=== PATIENT | female | born 1955 | race Caucasian/White ===

== ENCOUNTER 2023-04-15 12:58 | Outpatient (OUT) | payer MEDICARE, BC, SELFPAY ==
--- NOTE | 2023-04-15 13:00 | MM_ITS ---
Patient Name: CAR ALBERTS MR#: [id number] : 1955 Exam Date: 04/15/2023 Ordering Doctor: DR AMARIS BIRMINGHAM M.D. RADIOLOGY REPORT PROCEDURE: MM TOMOSYNTHESIS SCREENING BI COMPARISON: MG MAMM SCREEN 3D JALIL CAD, 03/07/2022. MG MAMM SCREEN 3D JALIL CAD, 01/18/2021. MG MAMM SCREEN JALIL W CAD, 12/28/2019. MG MAMM JALIL SCRN W CAD DIG, 07/02/2012. INDICATIONS: screening Calculator Name NCI Breast Cancer Risk Assessment Tool 5 Year Breast Cancer Risk 1.20% Lifetime Breast Cancer Risk 3.70% Personal Breast Cancer No Personal Ovarian Cancer No Treatments None Family Cancers Aunt-maternal with breast cancer at age 48; Aunt-maternal with breast cancer at age 69; Aunt-maternal with breast cancer at age 71; Aunt-maternal with breast cancer at age 68; Cousin-maternal with ovarian cancer at age 58. LOCATION: [facility] BREAST COMPOSITION: Scattered areas fibroglandular density. FINDINGS: DIAGNOSTIC CATEGORY 2--BENIGN FINDING: RIGHT BREAST: No significant suspicious finding. Scattered benign-appearing calcifications are present. No significant change has occurred. LEFT BREAST: No significant suspicious finding. Stable, chronic benign appearing lymph node lower-outer quadrant, mid breast. No significant change has occurred. RECOMMENDATIONS: ROUTINE MAMMOGRAM AND CLINICAL EVALUATION IN 12 MONTHS. PLEASE NOTE: A NORMAL MAMMOGRAM DOES NOT EXCLUDE THE POSSIBILITY OF BREAST CANCER. A CLINICALLY SUSPICIOUS PALPABLE LUMP SHOULD BE BIOPSIED. Dictated by: Addy Nj M.D. on 04/16/2023 at 07:57 Approved by: Addy Nj M.D. on 04/16/2023 at 07:59
== END 2023-04-15 12:59 | disposition home or self-care (01) ==
LOC: MAMMO 12:58
PROVIDERS: PCP Internal Medicine; Visit Provider Internal Medicine
DX: Z12.31 Encounter for screening mammogram for malignant neoplasm of breast (principal); Z80.3 Family history of malignant neoplasm of breast; Z80.41 Family history of malignant neoplasm of ovary
CPT/HCPCS: 77063; 77067

== ENCOUNTER 2023-04-20 11:39 | Outpatient (OUT) | payer MEDICARE, BC, SELFPAY ==
--- OUTSIDE RECORDS SUMMARY | 2023-04-20 11:55 | XMS_ITS | CCD ---
Author Name Unknown Address [facility] [address] [place] [address] Organization [facility] Care Team Providers Care Aerotriangulation Specialist Name Role Phone MANOJ MEDINA Attending Unavailable VINNIE, DR GLEZ Primary Care Unavailable LAKSHMIPATHY ., NARENDRANATH Consulting Mary vailable LAKSHMIPATHY ., NARENDRANATH Admitting Mary vailable LAKSHMIPATHY ., NARRAMIREZATH Attending Mary vailable VINNIE, DR GLEZ Primary Care Unavailable LAKSHMIPATHY ., NARRAMIREZATH Consulting Mary vailable LAKSHMIPATHY ., NARENDRANATH Admitting Mary vailable LAKSHMIPATHY ., MACK Attending Mary vailable THI, DR KIERAN Fong Consulting Unavailable VINNIE, DR GLEZ Primary Care Unavailable LAKSHMIPATHY ., NARENDRANATH Admitting Mary vailable LAKSHMIPATHY ., JULIAATH Attending Mary vailable LAKSHMIPATHY ., MACK Consulting Mary vailable VINNIE, DR GLEZ Admitting Unavailable AVILA, DR GLEZ Attending Unavailable AVILA, DR GELZ Consulting Unavailable AVILA, DR GLEZ Primary Care Unavailable ZICHRISTOPHERER, DR ADDY Gale Consulting Unavailable AVILA, DR GLEZ Admitting Unavailable AVILA, DR GLEZ Attending Unavailable AVILA, DR GLEZ Consulting Unavailable AVILA, DR GLEZ Primary Care Unavailable WEST, DR KIERAN Fong Consulting Unavailable VINNIE, DR GLEZ Primary Care Unavailable LAKSHMIPATHY ., NARENDRANATH Admitting Mary vailable LAKSHMIPATHY ., NARENDRANATH Attending Mary vailable LAKSHMIPATHY ., JULIAATH Consulting Mary vailable VINNIE, DR GLEZ Primary Care Unavailable LAKSHMIPATHY ., NARENDRANATH Admitting Mary vailable LAKSHMIPATHY ., NARENDRANATH Attending Mary vailable LAKSHMIPATHY ., NARENDRANATH Consulting Mary vailable LAKSHMIPATHY ., NARENDRANATH Admitting DR AMARIS Veras Primary Care Unavailable MACK SANDERS Attending AMARIS Veras Attending Unavailable Allergies Allergy Classification Reported Allergen(s) Allergy Type Date of Onset Reaction(s) Facility (2 sources) Codeine; Translations: [CODEINE] Drug Allergy 07-26-19 14 [facility] Repository (1 source) Meperidine; Translations: [MEPERIDINE] Drug Allergy 11-15-19 22 [facility] Rep[facility] (1 source) Sulfonamides (Antibiotic); Translations: [SULFA (SULFONAMIDE ANTIBIOTICS)] Propensity to adverse reactions to drug (disorder) 11-15-19 [facility] Repository (1 source) Acetaminophen / HYDROcodone Drug Allergy 07-26-19 14 [facility] Repository (1 source) Dextroamphetamine Drug Allergy 07-26-19 14 [facility] Repository (1 source) Meperidine Drug Allergy 07-26-19 14 [facility] Repository (1 source) Omeprazole Drug Allergy 07-26-19 14 [facility] Repository (1 source) Pravastatin Drug Allergy 07-26-19 14 [facility] Repository (1 source) raNITIdine Drug Allergy 07-26-19 14 [facility] Repository (1 source) rofecoxib Drug Allergy 07-26-19 14 [facility] Repository (1 source) Sucralfate Drug Allergy 07-26-19 14 [facility] Repository (1 source) Sulfonamides (Antibiotic) Drug allergy (disorder) 07-26-19 14 [facility] Repository (1 source) Trimethoprim Drug Allergy 06-08-19 15 [facility] Repository Problems Active Problems Problem Classification Problem Date Documented Date Episodic/Chronic Menopausal disorders (1 source) Other primary ovarian failure; Translations: [OTHER PRIMARY OVARIAN FAILURE] Onset: 03-14-2022 Chronic Other connective tissue disease (4 sources) Pain in left lower leg; Translations: [PAIN IN LEFT LOWER LEG] Onset: 05-15-2022 Episodic Other nervous system disorders (1 source) Other chronic pain; Translations: [OTHER CHRONIC PAIN] Onset: 05-18-2022 Chronic Other nervous system disorders (2 sources) Numbness; Translations: [Numbness] Onset: 11-14-2021 Episodic Other non-traumatic joint disorders (1 source) Pain in left hip; Translations: [PAIN IN LEFT HIP] Onset: 05-01-2022 Episodic Spondylosis; intervertebral disc disorders; other back problems (2 sources) Other intervertebral disc displacement, lumbar region; Translations: [Other intervertebral disc degeneration, lumbar region] Onset: 04-23-2022 Chronic Spondylosis; intervertebral disc disorders; other back problems (4 sources) Radiculopathy, lumbar region; Translations: [RADICULOPATHY LUMBAR REGION] Onset: 06-17-2022 Episodic Unclassified (2 sources) LOW BACK PAIN, UNSPECIFIED; Translations: [LOW BACK PAIN, UNSPECIFIED] Onset: 04-23-2022 Past or Other Problems Problem Classification Problem Date Documented Da te Episodic/Chronic Biliary tract disease (1 source) Calculus of gallbladder without cholecystitis without obstruction; Translations: [CALCU GB W/O CHOLECYST W/O OBST] Onset: 08-22-2021 Episodic Nausea and vomiting (4 sources) Nausea; Translations: [NAUSEA] Onset: 08-19-2021 Episodic Other bone disease and musculoskeletal deformities (1 source) Other specified disorders of bone density and structure, unspecified site; Translations: [OTH D/O BONE DEN STRUCT UNS SITE] Onset: 03-14-2022 Episodic Other screening for suspected conditions (not mental disorders or infectious disease) (1 source) Encounter for screening mammogram for malignant neoplasm of breast; Translations: [ENC SCR MAMMO MALIG NEOPLASM BREAST] Onset: 03-14-2022 Episodic Residual codes; unclassified (1 source) Family history of malignant neoplasm of breast; Translations: [FAMILY HX MALIG NEOPLASM OF BREAST] Onset: 03-14-2022 Episodic Residual codes; unclassified (1 source) Family history of malignant neoplasm of ovary; Translations: [FAM HX MALIGNANT NEOPLASM OVARY] Onset: 03-14-2022 Episodic Unclassified (1 source) LOW BACK PAIN, UNSPECIFIED; Translations: [LOW BACK PAIN, UNSPECIFIED] Onset: 04-17-2022 Results Test Name Value Interpretation Reference Range Facil ity MRI LSPINE WO CONon 04-22-19 MRI LSPINE WO CON EXAMINATION: MRI LSPINE WO CON HISTORY: Lumbar radiculopathy COMPARISON: No relevant comparison available. TECHNIQUE: A variety of imaging planes and parameters were utilized for visualization of suspected pathology. FINDINGS: For the purposes of numbering, sagittal T2 image # 7 extends from the T10 vertebral body superiorly to the S3 level inferiorly. PARASPINAL AREA: Normal with no visible mass. BONES: Normal alignment with no acute fracture or spondylolisthesis. Heterogeneous appearance of the marrow likely age-related change. Moderate diffuse degenerative spondylosis and facet osteoarthropathy. CORD/CAUDA EQUINA: Normal caliber, contour, and signal intensity. DISC LEVELS: 12-L1: Disc space narrowing and disc desiccation. Mild posterior disc bulge. No central or foraminal stenosis L1-L2: Moderate degenerative disc disease is present without visible neural impingement. L2-L3: Disc collapse with endplate sclerosis. Moderate anterior posterior disc/osteophyte complex and facet osteoarthropathy. No central or foraminal stenosis L3-L4: Moderate disc space narrowing and disc desiccation. Mild diffuse disc/osteophyte complex and facet osteoarthropathy. No central canal or right foraminal stenosis. Mild narrowing of the left neural foramen, sagittal image 4 L4-L5: Moderate disc space narrowing and disc desiccation. Moderate diffuse disc/osteophyte complex with left foraminal disc herniation of the protrusion type extending up to 5 mm. No central canal or right foraminal stenosis. Moderate narrowing of the left neural foramen, sagittal image 4 L5-S1: Moderate disc space narrowing and disc desiccation. Mild to moderate diffuse disc/osteophyte complex and facet osteophytes arthropathy. Mild bilateral foraminal stenosis IMPRESSION: Moderate diffuse degenerative changes most significant along the left L4-L5 neural foramen where a moderate sized disc herniation is observed resulting in moderate foraminal stenosis. This is congruent with the patient's symptoms Electronically authenticated by: KIERAN NESS Date: 2022-04-22 16:55 Normal [facility] MG MAMM SCREEN 3D JALIL CADon 03-07-2022 MG MAMM SCREEN 3D JALIL CAD Patient: KRISTINA VARGAS Exam Date: 03/07/2022 : 1955 Gender:F Ordering : DR AMARIS AVILA M.D. Admission #: [id number] Family : Order #: [id number] CLICK HERE TO VIEW EXAM RADIOLOGY REPORT PROCEDURE: MAMMOGRAM SCREENING 3D BILATERAL CAD COMPARISON: MG MAMM SCREEN 3D JALIL CAD, 01/18/2021. MG MAMM SCREEN JALIL W CAD, 12/28/2019. MG MAMM SCREEN JALIL W CAD, 10/28/2018. DIGITIZED_MAMMO, 04/14/2008. INDICATIONS: Screening mammography Calculator Name NCI Breast Cancer Risk Assessment Tool 5 Year Breast Cancer Risk 1.20% Lifetime Breast Cancer Risk 3.90% Personal Breast Cancer No Personal Ovarian Cancer No Treatments None Family Cancers Aunt-maternal with breast cancer at age 48; Aunt-maternal with breast cancer at age 69; Aunt-maternal with breast cancer at age 71; Aunt-maternal with breast cancer at age 68; Cousin-maternal with ovarian cancer at age 58. LOCATION: [facility] BREAST COMPOSITION: Scattered areas fibroglandular density. FINDINGS: DIAGNOSTIC CATEGORY 2--BENIGN FINDING: RIGHT BREAST: No significant suspicious finding. No significant change has occurred. LEFT BREAST: No significant suspicious finding. Stable benign-appearing lymph node within lower-outer quadrant. No significant change has occurred. RECOMMENDATIONS: ROUTINE MAMMOGRAM AND CLINICAL EVALUATION IN 12 MONTHS. PLEASE NOTE: A NORMAL MAMMOGRAM DOES NOT EXCLUDE THE POSSIBILITY OF BREAST CANCER. A CLINICALLY SUSPICIOUS PALPABLE LUMP SHOULD BE BIOPSIED. Dictated by: Addy Nj M.D. on 03/07/2022 at 13:40 Approved by: Addy Nj M.D. on 03/07/2022 at 13:43 Normal [facility] XR DEXA BONE DENSITYon 03-07 XR DEXA BONE DENSITY EXAMINATION: XR DEXA BONE DENSITY, 03/07/2022 11:06 AM EST HISTORY: Primary ovarian failure COMPARISON: DEXA bone densitometry 12/28/2019 TECHNIQUE: Dual-energy X-ray absorptiometry (DEXA) bone density study performed for the axial skeleton. FINDINGS: SPINE ANALYSIS: Average bone mineral density is 1.354 g/cm2. T-score (standard deviation relative to young adult mean): 1.5 . +4.9% change since prior study. HIP ANALYSIS: Lowest bone mineral density is within the left femoral neck, 0.798 g/cm2. T-score (standard deviation relative to young adult mean): -1.7 . +2.2% change since prior study. IMPRESSION: [employer] Organization Classification: Osteopenia - Moderate Fracture Risk Electronically authenticated by: ADDY NJ Date: 2022-03-07 16:12 Normal [facility] XR LSPINE MIN 4 VIEWSon 02-23 XR LSPINE MIN 4 VIEWS EXAMINATION: XR LSPINE MIN 4 VIEWS HISTORY: Lumbar radiculopathy ; low back pain radiating into left leg for 8 weeks COMPARISON: No relevant comparison available. FINDINGS: BONES: No fracture, spondylolisthesis, bone lesion. Moderate degenerative facet arthropathy L3-L4 through L5-S1. DISC SPACES: Marked narrowing L2-L3, L5-S1. Moderate narrowing at remaining levels. PARASPINOUS: Filter within the IVC. OTHER: Negative. IMPRESSION: 1. Marked degenerative changes of lumbar spine. 2. No appreciable acute abnormality. Electronically authenticated by: ADDY NJ Date: 2022-03-07 16:26 Normal [facility] Orders Onlyon 11-29-2021 Orders Only [id number] aRchel Vargas n 1955 F Date Provider Department Center 11/29/2021 [id number] SIM MP ORTHO MPORTHO No family history on file Normal [facility] Office Visiton 11-14-2021 Follow-up visit [id number] Rachel Vargas n 1955 F Date Provider Department Center 11/14/2021 373-MANOJ MEDINA MP ORTHO MPORTHO No family history on file Level of Service:[id number] [place] OFFICE/OUTPATIENT [facility] 30-44 MINUTES Reason for Visit and Comments: Numbness [75] - Lump - noticed 2 weeks ago with thumb tingling Normal [facility] US SINGLE QUAD RT UPPERon US SINGLE QUAD RT UPPER EXAMINATION: US SINGLE QUAD RT UPPER HISTORY: Nausea COMPARISON: No relevant comparison available. FINDINGS: The liver measures 14 cm in length. Normal in size, contour and echotexture. No focal mass. The gallbladder is normal in appearance. The gallbladder wall measures 1.5 mm. Negative sonographic Gilmore sign. No cholelithiasis or pericholecystic fluid. The common bile duct measures 5.2 mm, normal. The pancreas is normal in appearance The right kidney is normal in appearance. IMPRESSION: Normal exam Electronically authenticated by: KIERAN NESS Date: 2021-08-19 16:13 Normal [facility] Encounters Encounter Date Encounter Type Care Provider Facility Start: 01-21-2023 End: 01-21-2023 ambulatory AMARIS AVILA Not Available Start: 06-17-2022 End: 06-18-[address] AMARIS AVILA Facility:[facility] Start: 05-27-2022 End: 05-27-[address] AMARIS AVILA Facility:[facility] Start: 05-15-2022 End: 05-16-2022 ambulatory JULIAJOLENE LAVELLMIPATHMelisa . Facility:[facility] Start: 04-24-2022 End: 05-24-[address] AMARIS AVILA Facility:[facility] Start: 04-22-2022 End: 04-23-[address] KIERAN NESS Facility:[facility] Start: 04-17-2022 End: 04-18-2022 ambulatory NARENDRANATH LAKSHMIPATHY . Facility:[facility] Start: 03-07-2022 End: 03-08-[address] AMARIS AVILA Facility:[facility] Start: 11-14-2021 End: 11-14-2021 ambulatory [facility] Start: 08-19-2021 End: 08-20-[address] AMARIS AVILA Facility:[facility] Payers Date Payer Category Payer Medicare [id number] 1961 Unknown [id number] 1955 Unknown [id number] 2.16.84 [id number] 1955 Unknown [id number] 2.16.84 [id number] 1955 Unknown [id number] 2.16.84 [id number] 1955 Unknown [id number] 2.16.84 [id number] 1955 Unknown [id number] 2.16.84 [id number] 1955 Unknown [id number] 2.16.84 [id number] 1955 Unknown [id number] 2.16.84 [id number] 1955 Unknown [id number] 2.16.84 [id number] 1955 Unknown [id number] [id number] Consultation note 05-15-2022 Note Date & Type Note Facility 05-15-2022 Note CONSULTATION CONSULTATION DATE: 05/15/2022 HISTORY: She returns complaining of pain in her left lower extremity. It is rated at 5-7/10, sharp/shooting in nature, increased with activity such as standing, walking and performing transitioning maneuvers. She feels most comfortable in the semi-recumbent position. Denied any change in bowel and bladder habits or new sensorimotor changes in her lower extremities. She reports existing numbness and tingling of the left lower extremity with weakness, but nothing is progressive. EXAMINATION: Her examination is notable for patient having no clinical myelopathy involving her lower extremities on today's visit. Patient did have mild weakness of her left EHL, depressed left Achilles reflex. Straight leg raise was equivocally positive at approximately 90 degrees. She did have significant pain with lumbar axial loading maneuvers, with point tenderness at the L4-5 interspace, and associated myofascial spasm of the lumbar paravertebral muscles. 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 RECOMMENDATIONS: I have recommended proceeding with an epidural injection under fluoroscopic guidance. I have asked her to continue with the current regimen of medication which includes Neurontin 300 mg b.i.d., tramadol 50 mg daily p.r.n., which she reports is effective, and improving her qualify of life, level of functioning and sleep pattern, and to continue with Flexeril 10 mg daily p.r.n. Her SHANNON was 20 on today's visit. [facility] Consultation note 04-17-2022 Note Date & Type Note Facility 04-17-2022 Note PAIN MANAGEMENT CONS ULTATION CONSULTATION DATE: 04/17/2022 TO: Dr. Avila CHIEF COMPLAINT: Severe left lower back pain, left leg pain. HISTORY OF PRESENT ILLNESS: For list of past medical/surgical history, questionnaire is available upon request. She is a 67-year-old and reports having pain since November of 2021. It occurred spontaneously . She rates the pain as being 5-7/10, sharp in character, was increased with activities such as standing, walking and performing transitioning maneuvers. She feels most comfortable in the semi-recumbent position. Denies any change in bowel and bladder habits or new sensorimotor changes of the lower extremities. EXAM: Notable for patient having hypoesthesia along the left L5 dermatome, mild weakness of the left EHL, superior was equivocally positive at approximately 45 degrees. She had no signs consistent with myelopathy involving the lower extremities. She is unable to tolerate non- steroidal agents secondary to the fact that patient is on Coumadin for a pulmonary embolism. She has undergone activity modification, a home exercise program. She has been on a Medrol Dosepak, and she reports she has had only marginal relief with the use of the same. IMPRESSION: Patient with chronic pain extending to the L5 vertebral process. Her x-rays did reveal multilevel degenerative disc disease, as well as spondylitic changes with possible foraminal narrowing at the L5-S1 level. RECOMMENDATIONS: I have recommended she undergo a lumbosacral MRI with contrast, formal physical therapy as opposed to a home exercise program. I have placed her on Neurontin 300 mg b.i.d. and we will see her back in the office after she undergoes the imaging studies. possible lumbar epidural steroid injection under fluoroscopic guidance. [facility] Progress note 11-14-2021 Note Date & Type Note Facility 11-14-2021 Note Orthopaedic Surgery Subjective 11/14/21 Kristina Vargas is a 66 y.o. year old RHD female presents to clinic today for evaluation of left volar wrist mass and left thumb tingling. Patient was last seen in clinic approximately 5 years ago for a trigger finger on her right side which resolved with CSI. She reports over the past 3 to 4 weeks she has noted development of a small mass over the volar radial aspect of her wrist. She reports the mass does not appear to continue to be increasing in size. Denies any tenderness to the mass. Additionally, she reports numbness and tingling of her left thumb. She also reports of occasional numbness and tingling of her index and long fingers. Patient reports she has not tried any bracing of her left wrist. Otherwise, denies any numbness or tingling of her small finger. Patient History No past surgical history on file. No past medical history on file. Objective General: Body mass index is 28.77 kg/m???. No acute distress, comfortable Respiratory: Unlabored breathing with normal rate, no cough Cardiovascular: Warm well perfused extremities Psych: Appropriate mood behavior Focused exam of the left hand: Skin clean, dry, intact. There is a small approximately 4 x 4 millimeter cystic mass over the volar radial aspect of the wrist, consistent with a firm ganglion cyst. Patient has positive Tinel and positive Phalen and carpal compression test. Negative Tinel at the elbow, negative elbow flexion compression test and negative shoulder abduction/internal rotation test. Otherwise neurovascular intact distally, with slightly diminished sensation in median nerve distribution. Assessment/Plan Kristina Vargas is a 66 y.o. year old RHD female with left carpal tunnel syndrome and left volar wrist ganglion cyst -Discussed clinical findings with the patient today -We discussed that the patient's wrist mass appears to be ganglion cyst and is benign and does not require any intervention unless it is symptomatic. Additionally, we discussed that the patient's carpal tunnel syndrome does not appear to be highly symptomatic and we would not suggest aggressive treatment at this time -Cock up wrist brace provided to the patient to be worn at night -Return to clinic in approximately 6 weeks if symptoms are not improved, or if they worsen Neville Carpenter MD Orthopaedic Surgery, PGY-5 By using the attestations below, the signing clinician agrees that I have read and verify that the documentation has been personally reviewed by me and ensure that the documentation accurately reflects the encounter. GC: I personally saw this patient on the day of the encounter, performed the gómez portion(s) of the service and participated in the management and confirm the resident's documentation. Please note there may be an additional personal documentation from me. [facility] Summary Purpose Family History No Family History Records FoundNo Family History Records FoundNo Family History Records Found Advance Directives No Advanced Directives Records FoundNo Advanced Directives Records FoundNo Advanced Directives Records Found Additional Source Comments INFORMATION SOURCE (unrecogn ized section and content) DATE CREATED AUTHOR 01/02/2022 [facility] DATE CREATED AUTHOR AUTHOR'S ORGANIZ ATION 06/21/2022 [facility] DATE CREATED AUTHOR AUTHOR'S GARLAND ATION 01/23/2023 [facility] FOR RECORDS PERTAINING TO PATIENTS WHO ARE OR HAVE BEEN ENROLLED IN A CHEMICAL DEPENDENCY/SUBSTANCEABUSE PROGRAM, SOME INFORMATION MAY BE OMITTED. This clinical summary was aggregated from multiple sources. Caution should be exercised in using it in the provision of clinical care. This summary normalizes information from multiple sources, and as a consequence, information in this document may materially change the coding, format and clinical context of patient data. In addition, data may be omitted in some cases. CLINICAL DECISIONS SHOULD BE BASED ON THE PRIMARY CLINICAL RECORDS. [facility] [employer] provides no warranty or guarantee of the accuracy or completeness of information in this document.
--- NOTE | 2023-04-20 13:19 | P.CN_ITS ---
Consult Note: HPI Data of Consult Patient: known to practice within the last 3 years Consult date: 04/20/23 Requesting Physician: Leila Black MD Primary Care Provider: AMARIS B[place]MINGHAM Consult Narrative Reason for consult: Low back, left leg pain Narrative: 68yof who presents for assessment. Worsening low back and left leg pain. Similar to pain she had prior to DONNA in April, which provided significant relief of >50% for >3 months. Had a fall several months ago, which exacerbated pain. Imaging reviewed, which shows multilevel stenosis and degenerative changes, worst at L4- 5 and L5-S1. Continues in >6 weeks of provider directed home exercise program, with minimal benefit. Uses OTC pain meds as needed. Denies adverse med side effects. cc:: CC: Leila Black MD Review of Systems ROS Status of ROS 10 or more systems reviewed and unremark able except as noted in history and below Exam Narrative Exam Narrative: Psych-alert and oriented x 3. Attentive and appropriate, constitutionally normal, displays normal mood and affect per situation. There are no obvious deficits in memory, reasoning, or intellect.? Skin-no obvious rashes, bruising, erythema noted to the patient's area of pain.? Extremities- extremities are warm with minimal edema and palpable pulses. Lumbar-tenderness to palpation noted in the lumbar spine and paraspinal musculature. Pain is elicited with flexion, extension, and lateral rotation of the lumbar spine. Range of motion is diminished with these motions. Facet loading maneuvers are positive.? Strength-noted to be unremarkable with the exception of decreased strength rated at 4 out of 5 in left quadriceps femoris, anterior tibialis. Sensory-no notable sensory deficits in the bilateral lower extremities to touch or pinprick in all dermatomal distributions with the exception to decreased sensation to the left L4, 5 dermatomal distribution Sacroiliitis - tenderness to left PSIS. Positive thigh thrust on left. Positive Donald's on left. Coordination remains intact.? Gait remains non-antalgic. Assessment and Plan Assessment and Plan (1) Lumbar stenosis with neurogenic claudication: (2) Sacroiliac joint dysfunction of left side: Plan 68yof who presents for assessment. Failed conservative measures, as noted. Imaging reviewed, as noted. Given symptoms and imaging, prudent to attempt left L4-5, L5-S1 tfesi under fluoroscopic guidance. May even benefit from left SIJ injection. She is in agreement. Meds reviewed, no changes. Follow up after procedure.
== END 2023-04-20 11:40 | disposition home or self-care (01) ==
LOC: PM 11:40
PROVIDERS: PCP Internal Medicine; Visit Provider Anesthesiology
DX: M48.062 Spinal stenosis, lumbar region with neurogenic claudication (principal); M53.3 Sacrococcygeal disorders, not elsewhere classified
CPT/HCPCS: G0463

== ENCOUNTER 2023-05-11 08:48 | Day surgery (SDC) | payer MEDICARE, BC, SELFPAY ==
--- OUTSIDE RECORDS SUMMARY | 2023-05-11 09:03 | XMS_ITS | CCD ---
Author Name Unknown Address [address] [place] [address] Organization [facility] Care Team Providers Care Plug Grower Name Role Phone MANOJ MEDINA Attending Unavailable VINNIE, DR GLEZ Primary Care Unavailable LAKSHMIPATHY ., NARENDRANATH Consulting Mary vailable LAKSHMIPATHY ., NARENDRANATH Admitting Mary vailable LAKSHMIPATHY ., NARRAMIREZATH Attending Mary vailable VINNIE, DR GLEZ Primary Care Unavailable LAKSHMIPATHY ., JULIAATH Consulting Mary vailable LAKSHMIPATHY ., NARENDRANATH Admitting Mary vailable LAKSHMIPATHY ., MACK Attending Mary vailable THI, DR KIERAN Fong Consulting Unavailable VINNIE, DR GLEZ Primary Care Unavailable LAKSHMIPATHY ., NARENDRANATH Admitting Mary vailable LAKSHMIPATHY ., NARENDABBIEATH Attending Mary vailable LAKSHMIPATHY ., MACK Consulting Mary vailable VINNIE, DR GLEZ Admitting Unavailable AVILA, DR GLEZ Attending Unavailable AVILA, DR GLEZ Consulting Unavailable VINNIE, DR GLEZ Primary Care Unavailable RAJINDER, DR ADDY Gale Consulting Unavailable VINNIE, DR GLEZ Admitting Unavailable AVILA, DR GLEZ Attending Unavailable AVILA, DR GLEZ Consulting Unavailable AVILA, DR GLEZ Primary Care Unavailable WEST, DR KIERAN Fong Consulting Unavailable VINNIE, DR GLEZ Primary Care Unavailable LAKSHMIPATHY ., NARENDRANATH Admitting Mary vailable LAKSHMIPATHY ., NARENDRANATH Attending Mary vailable LAKSHMIPATHY ., SARITHAENDABBIEATH Consulting Mary vailable VINNIE, DR GLEZ Primary Care Unavailable LAKSHMIPATHY ., NARENDRANATH Admitting Mary vailable LAKSHMIPATHY ., NARENDRANATH Attending Mary vailable LAKSHMIPATHY ., NARENDRANATH Consulting Mary vailable LAKSHMIPATHY ., NARENDRANATH Admitting DR AMARIS Veras Primary Care Unavailable TIANA ., MACK Attending Mary AMARIS Person Attending Unavailable AMARIS AVILA Attending Unavailable AMARIS AVILA Attending Unavailable Sofia CACERES, Leila Toney Attending Unavailable Allergies Allergy Classification Reported Allergen(s) Allergy Type Date of Onset Reaction(s) Facility (2 sources) Codeine; Translations: [CODEINE] Drug Allergy 07-26-19 14 [facility] Repository (1 source) Meperidine; Translations: [MEPERIDINE] Drug Allergy 11-15-19 [facility] Repository (1 source) Sulfonamides (Antibiotic); Translations: [SULFA (SULFONAMIDE ANTIBIOTICS)] Propensity to adverse reactions to drug (disorder) 11-15-19 [facility] Repository (1 source) Acetaminophen / HYDROcodone Drug Allergy 07-26-[address] [facility] Repository (1 source) Dextroamphetamine Drug Allergy 07-26-[address] [facility] Repository (1 source) Meperidine Drug Allergy 07-26-[address] [facility] Repository (1 source) Omeprazole Drug Allergy 07-26-[address] [facility] Repository (1 source) Pravastatin Drug Allergy 07-26-[address] [facility] Repository (1 source) raNITIdine Drug Allergy 07-26-[address] [facility] Repository (1 source) rofecoxib Drug Allergy 07-26-[address] [facility] Repository (1 source) Sucralfate Drug Allergy 07-26-[address] [facility] Repository (1 source) Sulfonamides (Antibiotic) Drug allergy (disorder) 07-26-[address] [facility] Repository (1 source) Trimethoprim Drug Allergy 06-08-[address] [facility] Repository Problems Active Problems Problem Classification Problem [...] NESS Date: 2022-04-22 16:55 Normal [facility] MG MAMM SCREEN 3D JALIL CADon 03-07-2022 MG MAMM SCREEN 3D JALIL CAD Patient: KRISTINA VARGAS Exam Date: 03/07/2022 : 1955 Gender:F Ordering : DR AMARIS AVILA M.D. Admission #: [id number] Family : Order #: [id number] CLICK HERE TO VIEW EXAM RADIOLOGY REPORT [...] ovarian cancer at age 56. LOCATION: [facility] BREAST COMPOSITION: Scattered areas fibroglandular density. FINDINGS: [...] M.D. on 03/07/2022 at 13:[address] [facility] XR DEXA BONE DENSITYon 03-07 XR DEXA [...] [place] Date: 2022-03-07 16:12 Normal [facility] XR LSPINE MIN 4 VIEWSon 02-23 XR [...] [place] Date: 2022-03-07 16:26 Normal [facility] Orders Onlyon 11-29-2021 Orders Only [id number] SamRachel n 1955 F Date Provider Department Center 11/29/2021 [id number] SIM MP ORTHO MPORTHO No family history on file Normal [facility] Office Visiton 11-14-2021 Follow-up visit [id number] Rachel Vargas n 1955 F Date Provider Department Center 11/14/2021 373-MANOJ MEDINA MP ORTHO MPORTHO No family history on file Level of Service:[id number] [place] OFFICE/OUTPATIENT NEW LOW [facility] 30-44 MINUTES Reason for Visit and Comments: Numbness [75] - Lump - noticed 2 weeks ago with thumb tingling Normal [facility] US SINGLE QUAD RT UPPERon US [...] NESS Date: 2021-08-19 16:13 Normal [facility] Encounters Encounter Date Encounter Type Care Provider Facility Start: 04-20-2023 End: 04-21-2023 ambulatory AMARIS AVILA Not Available Start: 04-16-2023 End: 04-16-2023 ambulatory AMARIS AVILA Not Available Start: 01-21-2023 End: 01-21-2023 ambulatory AMARIS AVILA Not Available Start: 06-17-2022 End: 06-18-[address] AMARIS AVILA Facility:[facility] Start: 05-27-2022 End: 05-27-[address] AMARIS AVILA Facility:[facility] Start: 05-15-2022 End: 05-16-2022 ambulatory NARENDRANATH LAKSHMIPATHY . Facility:[facility] Start: 04-24-2022 End: 05-24-[address] AMARIS AVILA Facility:[facility] Start: 04-22-2022 End: 04-23-[address] KIERAN NESS Facility:[facility] Start: 04-17-2022 End: 04-18-2022 ambulatory NARENDRANATH LAKSHMIPATHY . Facility:[facility] Start: 03-07-2022 End: 03-08-[address] AMARIS AVILA Facility:[facility] Start: 11-14-2021 End: 11-14-2021 ambulatory [facility] Start: 08-19-2021 End: 08-20-[address] AMARIS AVILA Facility:[facility] Payers Date Payer Category Payer Unknown 1961 Medicare [id number] 1961 Unknown [id number] 1955 Unknown [id number] 2.16.84 0.1.968915.3.579.2.593 1955 Unknown [id number] 2.16.84 0.1.502143.3.579.2.593 1955 Unknown [id number] 2.16.84 0.1.571320.3.579.2.593 1955 Unknown [id number] 2.16.84 0.1.838649.3.579.2.593 1955 Unknown [id number] 2.16.84 0.1.897604.3.579.2.593 1955 Unknown [id number] 2.16.84 0.1.573524.3.579.2.593 1955 Unknown [id number] 2.16.84 0.1.474746.3.579.2.593 1955 Unknown [id number] 2.16.84 0.1.527496.3.579.2.593 1955 Unknown [id number] 2.16.84 0.1.048175.3.579.2.1259 1955 Unknown [id number] 2.16.84 0.1.790081.3.579.2.1259 1955 Unknown [id number] 2.16.840 .1.803676.3.579.2.1259 1955 Unknown [id number] 2.16. [id number] Consultation note 05-15-2022 Note Date & Type [...] SHANNON was 18 on today's visit. [facility] Consultation note 04-17-2022 Note Date & Type [...] epidural steroid injection under fluoroscopic guidance. [facility] Progress note 11-14-2021 Note Date & Type [...] be an additional personal documentation from me. [facility] Summary Purpose Family History No Family History Records FoundNo Family History Records FoundNo Family History Records FoundNo Family History Records Found Advance Directives No Advanced Directives Records FoundNo Advanced Directives Records FoundNo Advanced Directives Records FoundNo Advanced Directives Records Found Additional Source Comments INFORMATION SOURCE (unrecogn ized section and content) DATE CREATED AUTHOR 01/02/2022 [facility] DATE CREATED AUTHOR AUTHOR'S ORGANIZ ATION 06/21/2022 [facility] DATE CREATED AUTHOR AUTHOR'S ORGANIZ ATION 04/24/2023 [facility] DATE CREATED AUTHOR AUTHOR'S ORGANIZ ATION 04/29/2023 [facility] FOR RECORDS PERTAINING TO PATIENTS WHO ARE [...] BE BASED ON THE PRIMARY CLINICAL RECORDS. [employer] provides no warranty or guarantee of the accuracy or completeness of information in this document.
[2023-05-11 09:19] LABS: INR 1.53; Prothrombin Time 15.8 sec (9.0-11.6)
[2023-05-11 09:30] VITALS: BP 147/94; PULSE 131; RESP 20; TEMP 36.1; O2SAT 95
[2023-05-11 10:09] VITALS: BP 147/105; PULSE 129; RESP 18; O2SAT 95
--- NOTE | 2023-05-11 10:11 | P.ON_ITS ---
Date of procedure: 05/11/23 Pre-op diagnosis: Lumbar stenosis with neurogenic claudication Post-op diagnosis: same as pre-op Procedure: Procedure: Left L4-5, L5-S1 transforaminal epidural steroid injection Medications: Bupivacaine 0.25% 2cc, lidocaine 2% 1cc, kenalog 80mg The patient was seen and examined in the preoperative holding area.? Informed consent was obtained and placed on the chart.? Patient was brought to the medical procedure unit and placed in the prone position where a timeout was completed verifying the correct patient, procedure site, position, and planned special equipment using sterile aseptic technique.? Under direct fluoroscopic visualization a 25-gauge Quincke tipped spinal needle was advanced to the designated neural foramen where contrast dye was injected to show adequate spread.? The needle was inserted at level left L4-5. There was no evidence of vascular or adverse uptake.? Epidural spread was appreciated.? The above- mentioned injectate was then placed in a 1.5 mL aliquot preceded by negative aspiration.? The needle was removed. The needle was inserted and the procedure repeated at level left L5-S1.? The surgery site was covered.? Patient was taken to the postprocedural recovery area and monitored for an appropriate length of time before found suitable for discharge in the accompaniment of a responsible adult. Anesthesia: Local Surgeon: Leila Black Pathology: none sent Condition: stable Disposition: no change
[2023-05-11 10:13] VITALS: BP 107/71; PULSE 127; RESP 18; O2SAT 95
[2023-05-11] MEDS: IOHEXOL 240 MG/ML - 10 ML VIAL 12 MG INJ (10:15)
[2023-05-11] MEDS: 0.9 % SODIUM CHLORIDE 10 ML INJ (10:15)
[2023-05-11] MEDS: BUPIVACAINE HCL 0.25% PF 25 MG/10 ML VIAL INJ (10:15)
[2023-05-11] MEDS: TRIAMCINOLONE ACETONIDE 40 MG/ML VIAL 80 MG INJ (10:16)
[2023-05-11] MEDS: LIDOCAINE HCL 2% PF 100 MG/5 ML VIAL 3 ML INJ (10:16)
== END 2023-05-11 10:19 | disposition home or self-care (01) ==
LOC: SURGOUT 08:50
PROVIDERS: PCP Internal Medicine; Visit Provider Anesthesiology
DX: M48.062 Spinal stenosis, lumbar region with neurogenic claudication (principal); Z79.01 Long term (current) use of anticoagulants
CPT/HCPCS: 36415; 64483; 64484; 85610; Q9966

== ENCOUNTER 2023-05-25 07:30 | Day surgery (SDC) | payer MEDICARE, BC, SELFPAY ==
--- OUTSIDE RECORDS SUMMARY | 2023-05-25 07:37 | XMS_ITS | CCD ---
Author Organization [facility] Care Team Providers Care Operations Director Name Role Phone MANOJ MEDINA Attending Unavailable VINNIE, DR GLEZ Primary Care Unavailable LAKSHMIPATHY ., NARENDRANATH Consulting Mary vailable LAKSHMIPATHY ., NARENDRANATH Admitting Mary vailable LAKSHMIPATHY ., NARENDRANATH Attending Mary vailable VINNIE, DR GLEZ Primary Care Unavailable LAKSHMIPATHY ., NARENDRANATH Consulting Mary vailable LAKSHMIPATHY ., NARENDRANATH Admitting Mary vailable LAKSHMIPATHY ., NARRAMIREZATH Attending Mary vailable THI, DR KIERAN Fong Consulting Unavailable AVILA, DR GLEZ Primary Care Unavailable LAKSHMIPATHY ., NARENDRANATH Admitting Mary vailable LAKSHMIPATHY ., NARENDRANATH Attending Mary vailable LAKSHMIPATHY ., MACK Consulting Mary vailable VINNIE, DR GLEZ Admitting Unavailable AVILA, DR GLEZ Attending Unavailable AVILA, DR GLEZ Consulting Unavailable AVILA, DR GLEZ Primary Care Unavailable ZIEBER, DR ADDY Gale Consulting Unavailable VINNIE, DR GLEZ Admitting Unavailable AVILA, DR GLEZ Attending Unavailable AVILA, DR GLEZ Consulting Unavailable AVILA, DR GLEZ Primary Care Unavailable WEST, DR KIERAN Fong Consulting Unavailable AVILA, DR GLEZ Primary Care Unavailable LAKSHMIPATHY ., NARENDRANATH Admitting Mary vailable LAKSHMIPATHY ., NARENDRANATH Attending Mary vailable LAKSHMIPATHY ., JULIAATH Consulting Mary vailable VINNIE, DR GLEZ Primary Care Unavailable LAKSHMIPATHY ., NARENDRANATH Admitting Mary vailable LAKSHMIPATHY ., NARENDRANATH Attending Mary vailable LAKSHMIPATHY ., NARENDRANATH Consulting Mary vailable LAKSHMIPATHY ., JULIAATH Admitting Mary vailable AVILADR GLEZ Primary Care Unavailable LAKSHMIPATHY ., NARENDRANATH Attending Mary wendy Black MD, Leila Toney Attending Unavailable Sofia CACERES, Leila Toney Attending Unavailable AMARIS AVILA Attending Unavailable AMARIS AVILA Attending Unavailable AMARIS AVILA Attending Unavailable AMARIS AVILA Attending Unavailable Allergies Allergy Classification Reported Allergen(s) Allergy Type Date of Onset Reaction(s) Facility (2 sources) Codeine; Translations: [CODEINE] Drug Allergy 07-26-19 14 [facility] Repository (1 source) Meperidine; Translations: [MEPERIDINE] Drug Allergy 11-15-19 [facility] Repository (1 source) Sulfonamides (Antibiotic); Translations: [SULFA (SULFONAMIDE ANTIBIOTICS)] Propensity to adverse reactions to drug (disorder) 11-15-19 [facility] Repository (1 source) Acetaminophen / HYDROcodone Drug Allergy 07-26-19 14 [facility] Repository (1 source) Dextroamphetamine Drug Allergy 07-26-19 14 [facility] Repository (1 source) Meperidine Drug Allergy 07-26-19 14 [facility] Repository (1 source) Omeprazole Drug Allergy 07-26-19 14 [facility] Repository (1 source) Pravastatin Drug Allergy 07-26-19 14 [facility] Repository (1 source) raNITIdine Drug Allergy 07-26-19 14 [facility] Repository (1 source) rofecoxib Drug Allergy 07-26-19 14 [facility] Repository (1 source) Sucralfate Drug Allergy 07-26-19 14 [facility] Repository (1 source) Sulfonamides (Antibiotic) Drug allergy (disorder) 07-26-19 14 [facility] Repository (1 source) Trimethoprim Drug Allergy 06-08-19 15 [facility] Repository Problems Active Problems Problem Classification [...] : DR AMARIS AVILA M.D. Admission #: [id number] Family : Order #: [id number] CLICK HERE TO VIEW EXAM RADIOLOGY REPORT [...] cancer at age 56. LOCATION: [facility] BREAST COMPOSITION: Scattered areas fibroglandular density. [...] on 03/07/2022 at 13:43 Normal [facility] XR DEXA BONE DENSITYon 03-07 XR [...] [facility] Orders Onlyon 11-29-2021 Orders Only [id number] [place] n 1955 Date Provider Department Center 11/29/2021 [id number] SIM MP ORTHO MPORTHO No family history on file Normal [facility] Office Visiton 11-14-2021 Follow-up visit [id number] SamRachel n 1955 Date Provider Department Center 11/14/2021 373-MANOJ MEDINA MP ORTHO MPORTHO No family history on file Level of Service:[id number] [place] OFFICE/OUTPATIENT NEW LOW [place] 30-44 MINUTES Reason for Visit and Comments: Numbness [75] - Lump - noticed 2 weeks ago with thumb tingling Normal [facility] US SINGLE QUAD RT UPPERon US SINGLE [...] by: KIERAN NESS Date: 2021-08-19 16:13 Normal [facility] Encounters Encounter Date Encounter Type Care Provider Facility Start: 05-14-2023 End: 05-14-2023 ambulatory AMARIS AVILA Not Available Start: 05-11-2023 End: 05-12-2023 ambulatory Leila Black MD Facility:[facility] Start: 04-20-2023 End: 04-21-2023 ambulatory Leila Black MD Facility:[facility] Start: 04-16-2023 End: 04-16-2023 ambulatory AMARIS AVILA [...] AVILA Facility:[facility] Start: 11-14-2021 End: 11-14-2021 ambulatory [facility] Start: 08-19-2021 End: 08-20-[address] AMARIS AVILA Facility:[facility] Payers Date Payer Category Payer Unknown 1961 Medicare [id number] 1961 Unknown [id number] 1955 Unknown [id number] 2.16.84 0.1.691503.3.579.2.593 1955 Unknown [id number] 2.16.84 0.1.439854.3.579.2.593 1955 Unknown [id number] 2.16.84 0.1.330108.3.579.2.593 1955 Unknown [id number] 2.16.84 0.1.635690.3.579.2.593 1955 Unknown [id number] 2.16.84 0.1.381630.3.579.2.593 1955 Unknown [id number] 2.16.84 0.1.835488.3.579.2.593 1955 Unknown [id number] 2.16.84 0.1.734192.3.579.2.593 1953 Unknown [id number] 2.16.84 0.1.245474.3.579.2.593 1955 Unknown [id number] 2.16. 840.1.359351.3.579.2.196 1955 Unknown [id number] 2.16. 840.1.057898.3.579.2.196 1955 Unknown [id number] 2.16.84 0.1.993403.3.579.2.1259 1955 Unknown [id number] 2.16.84 0.1.466815.3.579.2.1259 1953 Unknown [id number] 2.16.84 0.1.681376.3.579.2.1259 1955 Unknown [id number] 2.16.840 .1.376663.3.579.2.1259 Consultation note 05-15-2022 Note Date & Type [...] was 18 on today's visit. [facility] Consultation note 04-17-2022 Note Date & [...] steroid injection under fluoroscopic guidance. [facility] Progress note 11-14-2021 Note Date & [...] be an additional personal documentation from me. [facility] Summary Purpose Family History No Family History Records FoundNo Family History Records FoundNo Family History Records FoundNo Family History Records Found Advance Directives No Advanced Directives Records FoundNo Advanced Directives Records FoundNo Advanced Directives Records FoundNo Advanced Directives Records Found Additional Source Comments INFORMATION SOURCE (unrecogn ized section and content) DATE CREATED AUTHOR 01/02/2022 [facility] DATE CREATED AUTHOR AUTHOR'S ORGANIZ ATION 06/21/2022 [facility] DATE CREATED AUTHOR AUTHOR'S ORGANIZ ATION 05/16/2023 [facility] DATE CREATED AUTHOR AUTHOR'S ORGANIZ ATION 05/16/2023 [facility] FOR RECORDS PERTAINING TO PATIENTS WHO ARE [...] BE BASED ON THE PRIMARY CLINICAL RECORDS. [employer] provides no warranty or guarantee of the accuracy or completeness of information in this document.
[2023-05-25 07:57] VITALS: BP 146/99; PULSE 118; TEMP 36.2; O2SAT 97
[2023-05-25 08:08] LABS: INR 1.67; Prothrombin Time 17.2 sec (9.0-11.6)
[2023-05-25 08:39] VITALS: BP 160/109; PULSE 125; O2SAT 96
[2023-05-25 08:41] VITALS: BP 141/91; PULSE 128; O2SAT 97
--- NOTE | 2023-05-25 08:41 | P.ON_ITS ---
Date of procedure: 05/25/23 Pre-op diagnosis: Left sacroiliitis Post-op diagnosis: same as pre-op Procedure: Procedure: Left sacroiliac joint injection Medications: Bupivacaine 0.25% 3cc, kenalog 40mg After informed consent was obtained, the patient was brought to the medical pro cedure unit and placed in the prone position, when a timeout was completed verifying correct patient, procedure, site, positioning, implant, and/or special equipment.? The skin overlying the area was prepped and draped in standard sterile fashion using alcohol.? A 25-gauge needle was inserted towards the left sacroiliac joint under direct fluoroscopic imaging.? Needle tip was advanced until the joint was encountered.? We instilled a total of 3 mL of solution.? Postoperatively needles were removed.? The patient tolerated the procedure well without complication.? The patient reported reduction in pain symptoms postoperatively. Anesthesia: Local Surgeon: Leila Black Pathology: none sent Condition: stable Disposition: no change
[2023-05-25] MEDS: LIDOCAINE HCL 2% PF 100 MG/5 ML VIAL INJ (08:42)
[2023-05-25] MEDS: BUPIVACAINE HCL 0.25% PF 25 MG/10 ML VIAL 2 ML INJ (08:42)
[2023-05-25] MEDS: IOHEXOL 240 MG/ML - 10 ML VIAL 12 MG INJ (08:42)
[2023-05-25] MEDS: TRIAMCINOLONE ACETONIDE 40 MG/ML VIAL INJ (08:43)
== END 2023-05-25 08:46 | disposition home or self-care (01) ==
PROVIDERS: PCP Internal Medicine; Visit Provider Anesthesiology
DX: M46.1 Sacroiliitis, not elsewhere classified (principal); Z79.01 Long term (current) use of anticoagulants
CPT/HCPCS: 27096; 85610; Q9966

== ENCOUNTER 2023-06-04 12:29 | Outpatient (OUT) | payer MEDICARE, BC, SELFPAY ==
--- NOTE | 2023-06-04 12:52 | PM.CN ---
Consult Note: HPI Data of Consult Patient: known to practice within the last 3 years Consult date: 04/20/23 Requesting Physician: Angelina Issa NP Primary Care Provider: AMARIS BIRMINGHAM Consult Narrative Reason for consult: Low back, left leg pain Narrative: 68yof who presents for assessment. Worsening low back and left leg pain. Similar to pain she had prior to DONNA in April, which provided significant relief of >50% for >3 months. Had a fall several months ago, which exacerbated pain. Imaging reviewed, which shows multilevel stenosis and degenerative changes, worst at L4-5 and L5-S1. Continues in >6 weeks of provider directed home exercise program, with minimal benefit. Uses OTC pain meds as needed. Denies adverse med side effects. Most recently underwent left L4-5 l5-S1 TFESI and left SIJ injection with >90% improvement ongoing. Patient reports pain 1/10 intermittent ache in left hip and buttocks, significant improvement in dressing and showering. Patient very pleased with recent injections. cc:: CC: Angelina Issa NP Review of Systems ROS Status of ROS 10 or more systems reviewed and unremarkable except as noted in history and below Musculoskeletal Reports: back pain and joint pain [facility] Medical History (Updated 04/20/23 @ 14:12 by Patti Rojas RN) Ankylosing spondylitis ?M45.9 - Ankylosing spondylitis of unspecified sites in spine (ICD-10) Pulmonary embolism ?I26.99 - Other pulmonary embolism without acute cor pulmonale (ICD-10) Hypercoagulable state ?D68.59 - Other primary thrombophilia (ICD-10) Protein C deficiency ?D68.59 - Other primary thrombophilia (ICD-10) Thyroid nodule ?E04.1 - Nontoxic single thyroid nodule (ICD-10) Hypoglycemia ?E16.2 - Hypoglycemia, unspecified (ICD-10) Sleep apnea ?G47.30 - Sleep apnea, unspecified (ICD-10) COPD (chronic obstructive pulmonary disease) ?J44.9 - Chronic obstructive pulmonary disease, unspecified (ICD-10) Hypotension ?I95.9 - Hypotension, unspecified (ICD-10) 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 - Other ill-defined heart diseases (ICD-10) 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) History of left heart catheterization ?Z98.890 - Other specified postprocedural states (ICD-10) History of stress test ?Z92.89 - Personal history of other medical treatment (ICD-10) Osteoarthritis ?M19.90 - Unspecified osteoarthritis, unspecified site (ICD-10) Thrombosis ?I82.90 - Acute embolism and thrombosis of unspecified vein (ICD-10) Carpal tunnel syndrome ?G56.00 - Carpal tunnel syndrome, unspecified upper limb (ICD-10) Acid reflux ?K21.9 - Gastro-esophageal reflux disease without esophagitis (ICD-10) Hiatal hernia ?K44.9 - Diaphragmatic hernia without obstruction or gangrene (ICD-10) Hypothyroid ?E03.9 - Hypothyroidism, unspecified (ICD-10) Asthma ?J45.909 - Unspecified asthma, uncomplicated (ICD-10) Angina at rest ?I20.89 - Other forms of angina pectoris (ICD-10) Surgical History Hx of CABG ?Z95.1 - Presence of aortocoronary bypass graft (ICD-10) History of arthroscopic knee surgery ?Z98.890 - Other specified postprocedural states (ICD-10) History of bunionectomy ?Z98.890 - Other specified postprocedural states (ICD-10) H/O hernia repair ?Z98.890 - Other specified postprocedural states (ICD-10) ?Z87.19 - Personal history of other diseases of the digestive system (ICD-10) H/O exploratory laparotomy ?Z98.890 - Other specified postprocedural states (ICD-10) H/O ovarian cystectomy ?Z98.890 - Other specified postprocedural states (ICD-10) ?Z87.42 - Personal history of other diseases of the female genital tract (ICD-10) History of bronchoscopy ?Z98.890 - Other specified postprocedural states (ICD-10) History of hysterectomy ?Z90.710 - Acquired absence of both cervix and uterus (ICD-10) Hx of tonsillectomy ?Z90.89 - Acquired absence of other organs (ICD-10) Meds Home Medications and Allergies Home Medications ?Medication ?Instructions ?Recorded ?Confirmed ?Type albuterol sulfate 0.63 mg/3 mL 0.63 mg inhalation Q6H 04/20/23 05/25/23 History solution for nebulization albuterol sulfate 4 mg tablet 4 mg PO TID 04/20/23 05/25/23 History cyclobenzaprine 10 mg tablet 10 mg PO BEDTIME 04/20/23 05/25/23 History esomeprazole magnesium 40 mg 40 mg PO BID 04/20/23 05/25/23 History capsule,delayed release (Nexium) isosorbide mononitrate 60 mg 60 mg PO DAILY 04/20/23 05/25/23 History tablet,extended release 24 hr mometasone 50 mcg/actuation nasal 2 spray intranasal DAILY 04/20/23 05/25/23 History spray (Nasonex 24hr Allergy) nitroglycerin 400 mcg/spray 0.4 mg translingual Q5M PRN chest 04/20/23 05/25/23 History translingual pain ondansetron 4 mg disintegrating 4 mg PO QID 04/20/23 05/25/23 History tablet ranolazine 500 mg tablet,extended 500 mg PO BID 04/20/23 05/25/23 History release,12 hr simvastatin 20 mg tablet (Zocor) 20 mg PO DAILY 04/20/23 05/25/23 History tramadol 50 mg tablet 50 mg PO BID 04/20/23 05/25/23 History warfarin 7.5 mg tablet 7.5 mg PO QTUTHSASU 04/20/23 05/25/23 History zolpidem 10 mg tablet (Ambien) 10 mg PO BEDTIME 04/20/23 05/25/23 History hydrocodone 5 mg-acetaminophen 325 1 tab PO Q12H PRN pain 05/25/23 05/25/23 History mg tablet Allergies Allergy/AdvReac Type Severity Reaction Status Date / Time acetaminophen [From Vicodin] Allergy Verified 05/25/23 07:58 atorvastatin Allergy Verified 05/25/23 07:58 codeine Allergy Verified 05/25/23 07:58 hydrocodone [From Vicodin] Allergy Verified 05/25/23 07:58 meperidine [From Demerol] Allergy Verified 05/25/23 07:58 omeprazole Allergy Verified 05/25/23 07:58 pravastatin Allergy Verified 05/25/23 07:58 ranitidine Allergy Verified 05/25/23 07:58 rofecoxib Allergy Verified 05/25/23 07:58 sucralfate [From Carafate] Allergy Verified 05/25/23 07:58 Sulfa (Sulfonamide Allergy Verified 05/25/23 07:58 Antibiotics) trimethoprim Allergy Verified 05/25/23 07:58 Exam Constitutional Documenting provider has reviewed patient's vital signs: yes Common normals: no apparent distress, oriented x3, healthy appearing, alert and well nourished General appearance: cooperative HENMT Common normals: normocephalic, hearing grossly normal bilaterally and moist oral mucous membranes Head and scalp: normocephalic Eye Common normals: PERRL Pupil: PERRL Neck & C-Spine Common normals: full ROM General: normal visual inspection Chest Common normals: inspection of chest normal Respiratory Common normals: normal respiratory effort, no retractions and no use of accessory muscles Back & Pelvis Lumbar spine/lower back: normal to inspection and straight leg raise negative bilaterally Pelvis: buttocks normal Sacroiliac joints: SI joints normal Other: negative radiculopathy, negative facet loading negative alfonso fadir thigh thrust and gaenslens on left SIJ Neuro Common normals: oriented x3, CN's II-XII intact bilaterally, moves all extremities, no focal motor deficits, no sensory deficits noted and deep tendon reflexes 2+ bilaterally Sensorium/orientation: alert Motor exam: strength 5/5 throughout and no movement abnormalities noted Psych Common normals: mental status grossly normal, thought process normal, cooperative, affect normal, speech normal and activity/motor behavior normal Speech: normal speech Thought process: normal thought process Results Additional Findings Additional findings: If on a controlled substance or opioids, I have checked an [place]AR[place] report on this patient and there are no aberrancies noted in the prescribing history.??If on a controlled substance or opioid a drug screen was completed and reviewed within the last year, and if there has not been a drug screen completed we ordered one today to monitor higher risk, state monitored pain medication use. As part of providing excellent, safe, comprehensive care, the following was completed at our patient's visit: 1. A medication reconciliation and review to ensure accurate knowledge of current/active medications, including asking our patients to inform us about any rayq-ngg-[id number] medications or herbal remedies/nutritional supplements/alternative remedies. 2. A review to specifically ensure our patients have had annual screening for screening for depression, screening for tobacco use, and screening for unhealthy alcohol use. For concerning screenings had a discussion with the patient, provided patient education, and recommended follow-up with primary care provider when appropriate. If patient noted with a risk of falling, they received education on strength, gait, and balance training to prevent future risk of falling. Assessment and Plan Assessment and Plan (1) Lumbar stenosis with neurogenic claudication: (2) Sacroiliac joint dysfunction of left side: Plan continue medications as needed continue HEP as tolerated f/u 3 months, sooner if needed
== END 2023-06-04 12:30 | disposition home or self-care (01) ==
LOC: PM 12:29
PROVIDERS: PCP Internal Medicine; Visit Provider Nurse Practitioner
DX: M48.062 Spinal stenosis, lumbar region with neurogenic claudication (principal); M53.3 Sacrococcygeal disorders, not elsewhere classified
CPT/HCPCS: G0463

== ENCOUNTER 2023-09-03 12:26 | Outpatient (OUT) | payer MEDICARE, BC, SELFPAY ==
--- NOTE | 2023-09-03 12:35 | P.CN_ITS ---
Consult Note: HPI Data of Consult Patient: known to practice within the last 3 years Consult date: 04/20/23 Requesting Physician: Angelina Issa NP Primary Care Provider: AMARIS BIRMINGHAM Consult Narrative Reason for consult: Low back, left leg pain Narrative: 68yof who presents for assessment. Worsening low back and left leg pain. Similar to pain she had prior to DONNA in April, which provided significant relief of >50% for >3 months. Had a fall several months ago, which exacerbated pain. Imaging reviewed, which shows multilevel stenosis and degenerative changes, worst at L4- 5 and L5-S1. Continues in >6 weeks of provider directed home exercise program, with minimal benefit. Uses OTC pain meds as needed. Denies adverse med side effects. Previously underwent left L4-5 l5-S1 TFESI and left SIJ injection with >50% improvement greater than 3 months Patient reports pain 2/10 intermittent ache in left hip and buttocks radiating into left foot, pain increasing to 7/10 with standing, walking, pushing, pulling, stairs all activity. Pain improved with sitting, lying, and heat. cc:: CC: Angelina Issa NP Review of Systems ROS Status of ROS 10 or more systems reviewed and unremark able except as noted in history and below Musculoskeletal Reports: back pain and joint pain PFSH PFSH Medical History Ankylosing spondylitis ?M45.9 - Ankylosing spondylitis of unspecified sites in spine (ICD-10) Pulmonary embolism ?I26.99 - Other pulmonary embolism without acute cor pulmonale (ICD-10) Hypercoagulable state ?D68.59 - Other primary thrombophilia (ICD-10) Protein C deficiency ?D68.59 - Other primary thrombophilia (ICD-10) Thyroid nodule ?E04.1 - Nontoxic single thyroid nodule (ICD-10) Hypoglycemia ?E16.2 - Hypoglycemia, unspecified (ICD-10) Sleep apnea ?G47.30 - Sleep apnea, unspecified (ICD-10) COPD (chronic obstructive pulmonary disease) ?J44.9 - Chronic obstructive pulmonary disease, unspecified (ICD-10) Hypotension ?I95.9 - Hypotension, unspecified (ICD-10) 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 - Other ill-defined heart diseases (ICD-10) 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) History of left heart catheterization ?Z98.890 - Other specified postprocedural states (ICD-10) History of stress test ?Z92.89 - Personal history of other medical treatment (ICD-10) Osteoarthritis ?M19.90 - Unspecified osteoarthritis, unspecified site (ICD-10) Thrombosis ?I82.90 - Acute embolism and thrombosis of unspecified vein (ICD-10) Carpal tunnel syndrome ?G56.00 - Carpal tunnel syndrome, unspecified upper limb (ICD-10) Acid reflux ?K21.9 - Gastro-esophageal reflux disease without esophagitis (ICD-10) Hiatal hernia ?K44.9 - Diaphragmatic hernia without obstruction or gangrene (ICD-10) Hypothyroid ?E03.9 - Hypothyroidism, unspecified (ICD-10) Asthma ?J45.909 - Unspecified asthma, uncomplicated (ICD-10) Angina at rest ?I20.89 - Other forms of angina pectoris (ICD-10) Surgical History Hx of CABG ?Z95.1 - Presence of aortocoronary bypass graft (ICD-10) History of arthroscopic knee surgery ?Z98.890 - Other specified postprocedural states (ICD-10) History of bunionectomy ?Z98.890 - Other specified postprocedural states (ICD-10) H/O hernia repair ?Z98.890 - Other specified postprocedural states (ICD-10) ?Z87.19 - Personal history of other diseases of the digestive system (ICD-10) H/O exploratory laparotomy ?Z98.890 - Other specified postprocedural states (ICD-10) H/O ovarian cystectomy ?Z98.890 - Other specified postprocedural states (ICD-10) ?Z87.42 - Personal history of other diseases of the female genital tract (ICD-10) History of bronchoscopy ?Z98.890 - Other specified postprocedural states (ICD-10) History of hysterectomy ?Z90.710 - Acquired absence of both cervix and uterus (ICD-10) Hx of tonsillectomy ?Z90.89 - Acquired absence of other organs (ICD-10) Meds Home Medications and Allergies Home Medications ?Medication ?Instructions ?Recorded ?Confirmed ?Type albuterol sulfate 0.63 mg/3 mL 0.63 mg inhalation Q6H 04/20/23 05/25/23 History solution for nebulization albuterol sulfate 4 mg tablet 4 mg PO TID 04/20/23 05/25/23 History cyclobenzaprine 10 mg tablet 10 mg PO BEDTIME 04/20/23 05/25/23 History esomeprazole magnesium 40 mg 40 mg PO BID 04/20/23 05/25/23 History capsule,delayed release (Nexium) isosorbide mononitrate 60 mg 60 mg PO DAILY 04/20/23 05/25/23 History tablet,extended release 24 hr mometasone 50 mcg/actuation nasal 2 spray intranasal DAILY 04/20/23 05/25/23 History spray (Nasonex 24hr Allergy) nitroglycerin 400 mcg/spray 0.4 mg translingual Q5M PRN chest 04/20/23 05/25/23 History translingual pain ondansetron 4 mg disintegrating 4 mg PO QID 04/20/23 05/25/23 History tablet ranolazine 500 mg tablet,extended 500 mg PO BID 04/20/23 05/25/23 History release,12 hr simvastatin 20 mg tablet (Zocor) 20 mg PO DAILY 04/20/23 05/25/23 History tramadol 50 mg tablet 50 mg PO BID 04/20/23 05/25/23 History warfarin 7.5 mg tablet 7.5 mg PO QTUTHSASU 04/20/23 05/25/23 History zolpidem 10 mg tablet (Ambien) 10 mg PO BEDTIME 04/20/23 05/25/23 History hydrocodone 5 mg-acetaminophen 325 1 tab PO Q12H PRN pain 05/25/23 05/25/23 History mg tablet Allergies Allergy/AdvReac Type Severity Reaction Status Date / Time acetaminophen [From Vicodin] Allergy Verified 05/25/23 07:58 atorvastatin Allergy Verified 05/25/23 07:58 codeine Allergy Verified 05/25/23 07:58 hydrocodone [From Vicodin] Allergy Verified 05/25/23 07:58 meperidine [From Demerol] Allergy Verified 05/25/23 07:58 omeprazole Allergy Verified 05/25/23 07:58 pravastatin Allergy Verified 05/25/23 07:58 ranitidine Allergy Verified 05/25/23 07:58 rofecoxib Allergy Verified 05/25/23 07:58 sucralfate [From Carafate] Allergy Verified 05/25/23 07:58 Sulfa (Sulfonamide Allergy Verified 05/25/23 07:58 Antibiotics) trimethoprim Allergy Verified 05/25/23 07:58 Exam Constitutional Documenting provider has reviewed patient's vital signs: yes Common normals: no apparent distress, oriented x3, healthy appearing, alert and well nourished General appearance: cooperative HENNE Common normals: normocephalic, hearing grossly normal bilaterally and moist oral mucous membranes Head and scalp: normocephalic Eye Common normals: PERRL Pupil: PERRL Neck & C-Spine Common normals: full ROM General: normal visual inspection Chest Common normals: inspection of chest normal Respiratory Common normals: normal respiratory effort, no retractions and no use of accessory muscles Back & Pelvis Lumbar spine/lower back: normal to inspection, lumbar ROM normal, pain with ROM and straight leg raise negative bilaterally Pelvis: buttocks normal Sacroiliac joints: SI joint(s) abnormal Other: left SIJ positive alfonso(patricks), gaenslens, thigh thrust, compression test decreased sensation left L4,5,S1 pattern strength 4/5 in LLE Extremity Common normals: normal to inspection and full ROM Neuro Common normals: oriented x3, CN's II-XII intact bilaterally, moves all extremities, no focal motor deficits, no sensory deficits noted, deep tendon reflexes 2+ bilaterally and gait normal Sensorium/orientation: alert Motor exam: no movement abnormalities noted and strength abnormal Psych Common normals: mental status grossly normal, thought process normal, cooperative, affect normal, speech normal and activity/motor behavior normal Speech: normal speech Thought process: normal thought process Results Additional Findings Additional findings: If on a controlled substance or opioids, I have checked an OARRS report on this patient and there are no aberrancies noted in the prescribing history.??If on a controlled substance or opioid a drug screen was completed and reviewed within the last year, and if there has not been a drug screen completed we ordered one today to monitor higher risk, state monitored pain medication use. As part of providing excellent, safe, comprehensive care, the following was completed at our patient's visit: 1. A medication reconciliation and review to ensure accurate knowledge of current/active medications, including asking our patients to inform us about any yyek-jzc-[id number] medications or herbal remedies/nutritional supplements/alternative remedies. 2. A review to specifically ensure our patients have had annual screening for screening for depression, screening for tobacco use, and screening for unhealthy alcohol use. For concerning screenings had a discussion with the patient, pr ovided patient education, and recommended follow-up with primary care provider when appropriate. If patient noted with a risk of falling, they received education on strength, gait, and balance training to prevent future risk of falling. Assessment and Plan Assessment and Plan (1) Lumbar stenosis with neurogenic claudication: (2) Sacroiliac joint dysfunction of left side: Plan repeat left L4-5 L5-S1 TFESI under fluoroscopy, previous left L4-5 L5-S1 TFESI provided >50% improvement greater than 3 months repeat left SIJ injection under fluoroscopy, previous left SIJ injection provided >50% improvement greater than 3 months continue HEP as tolerated continue current medications f/u after injections complete
== END 2023-09-03 12:27 | disposition home or self-care (01) ==
LOC: PM 12:27
PROVIDERS: PCP Internal Medicine; Visit Provider Nurse Practitioner
DX: M48.062 Spinal stenosis, lumbar region with neurogenic claudication (principal); M53.3 Sacrococcygeal disorders, not elsewhere classified
CPT/HCPCS: G0463

== ENCOUNTER 2024-10-26 07:56 | Outpatient (OUT) | payer MEDICARE, BC, SELFPAY ==
--- OUTSIDE RECORDS SUMMARY | 2024-10-26 08:01 | XMS_ITS | Encounter Summary ---
Author Organization [facility] Address [address] [place] [address] Care Team Providers Care Data Recovery Planner Name Role Phone Sandro Avila MD Unavailable [phone] Sandro Avila MD Primary Care Provider [phone] Encounter Details Date Type Department Care Team (Late st Contact Info) Description 12/30/2023 [facility] [place] [facility] [address] [facility] [address] [place] [id number] Sandro Avila MD [address] [facility] [address] [place] [address] Social History Tobacco Use Types Packs/Day Years Used Date Smoking Tobacco: Never Smokeless Tobacco: Never Alcohol Use Standard Drinks/Week Comments Never 0 (1 standard drink = 0.6 oz pur e alcohol) Social Connection and Isolat ion Panel [NHANES] Answer Date Recorded In a typical week, how many times do you talk on the phone with family, friends, or neighbors? More than three times a week 04/15/2023 How often do you get togethe r with friends or relatives? Twice a week 04/15/2023 How often do you attend chur ch or pentecostal services? 1 to 4 times per year 04/15/2023 Do you belong to any clubs o r organizations such as congregation groups, unions, fraternal or athletic groups, or school groups? Yes 04/15/2023 How often do you attend meet ings of the clubs or organizations you belong to? 1 to 4 times per year 04/15/2023 Are you , , di vorced, , never , or living with a partner? 04/15/2023 AUDIT-C Answer Date Recorded Q1: How often do you have a drink containing alcohol? Never 04/15/2023 Q2: How many drinks containi ng alcohol do you have on a typical day when you are drinking? Patient does not drink Q3: How often do you have si x or more drinks on one occasion? Never 04/15/2023 Overall Financial Resource Strain (CARDIA) Answe r Date Recorded How hard is it for you to pa y for the very basics like food, housing, medical care, and heating? Not very hard 04/15/2023 [facility] [place] [facility] - Occupational Stress Questionnaire Answer Date Recorded Do you feel stress - tense, restless, nervous, or anxious, or unable to sleep at night because your mind is troubled all the time - these days? Only a little 04/15/2023 Exercise Vital Sign Answer Date Recorde d On average, how many days pe r week do you engage in moderate to strenuous exercise (like a brisk walk)? 1 day Minutes of Exercise per Session Not on file 04/15/2023 Hunger Vital Sign Answer Date Recorded Within the past 12 months, y ou worried that your food would run out before you got the money to buy more. Never true 04/15/19 24 Within the past 12 months, t he food you bought just didn't last and you didn't have money to get more. Never true 04/15/2023 PRAPARE - Transportation Answer Date Re corded In the past 12 months, has l ack of transportation kept you from medical appointments or from getting medications? No 03/27 In the past 12 months, has l ack of transportation kept you from meetings, work, or from getting things needed for daily living? No 04/15/2023 Housing Stability Vital Sign Answer Jeffy e Recorded In the last 12 months, was t here a time when you were not able to pay the mortgage or rent on time? No 04/15/2023 Number of Places Lived in the Last Year Not on f ile 04/15/2023 In the last 12 months, was t here a time when you did not have a steady place to sleep or slept in a long term (including now)? No 04/15/2023 Comments Unknown Sex and Gender Information Value Date Recorded Sex Assigned at Not on file Legal Sex Female 7:12 PM EDT Gender Identity Not on file Sexual Orientation Not on file documented as of this encounter Plan of Treatment Upcoming Encounters Date Type Department Care Team (Late st Contact Info) Description 10/31/2024 4:30 PM EDT Office Visit [facility] [place] [address] [facility] [address] [place] [address] Sandro Avila MD [address] [facility] [address] [place] [address] documented as of this encounter Visit Diagnoses Not on filedocumented in this encounter Care Teams Data Recovery Planner Relationship Specialty Start Date End Date Sandro Avila MD [address] [facility] [address] [place] [address] PCP - ACO Reach 07/17/22 Sandro Avila MD [address] [facility] [address] [place] [address] PCP - General Internal Medicine 07/01/22 documented as of this encounter
--- OUTSIDE RECORDS SUMMARY | 2024-10-26 08:01 | XMS_ITS | Encounter Summary ---
Author Organization [facility] Address [address] [facility] [place] [address] Care Team Providers Care Draw Operator Name Role Phone Sandro Avila MD Unavailable [phone] Sandro Avila MD Primary Care Provider Encounter Details Date Type Department Care Team (Late st Contact Info) Description 08/10/2023 Abstract [facility] [place] [facility] [address] [facility] [address] [place] [id number] Sandro Avila MD [address] [facility] [address] [place] [address] Social History Tobacco Use Types [...] often do you attend chur ch or voodoo services? 1 to 4 times per year 04/15/2023 Do you belong to any clubs o r organizations such as pentecostal groups, unions, fraternal or athletic groups, or [...] care, and heating? Not very hard 04/15/2023 [facility] [place] [facility] Occupat ional Health - Occupational Stress [...] place to sleep or slept in a long-term (including now)? No 04/15/2023 Comments Unknown Sex [...] Visit [facility] [place] [address] [facility] [address] [place] [address] Sandro Avila MD [address] [facility] [address] [place] [address] documented as of this encounter Visit Diagnoses Not on filedocumented in this encounter Care Teams Draw Operator Relationship Specialty Start Date End Date Sandro Avila MD [address] [facility] [address] [place] [address] PCP - ACO Reach 07/17/22 Sandro Avila MD [address] [facility] [address] [place] [address] PCP - General Internal Medicine 07/01/22 documented as of this encounter
--- OUTSIDE RECORDS SUMMARY | 2024-10-26 08:01 | XMS_ITS | Encounter Summary ---
Author Organization [facility] Address [address] [place] [address] Care Team Providers Care Asset Management Lead Name Role Phone Sandro Avila MD Unavailable [phone] Sandro Avila MD Primary Care Provider [phone] Encounter Details Date Type Department Care Team (Late st Contact Info) Description 07/28/[address] [facility] [address] [facility] [address] [place] [id number] Sandro Avila MD 112 [facility] 110 [place] [address] Social History Tobacco Use Types Packs/Day Years Used Date Smoking Tobacco: Never Smokeless Tobacco: Never Alcohol Use Standard Drinks/Week Comments Never 0 (1 standard drink = 0.6 oz pur e alcohol) B1300 Health Literacy Answer Date Recor ded How often do you need to hav e someone help you when you read instructions, pamphlets, or other written material from your doctor or pharmacy? Never 05/05/2024 Social Connection and Isolation Panel [NHANES] A nswer Date Recorded In a typical week, how many times do you talk on the phone with family, friends, or neighbors? Once a week 05/05/2024 How often do you get together with friends or re latives? Once a week 05/05/2024 How often do you attend latter-day or orthodoxy serv ices? Never 05/05/2024 Do you belong to any clubs o r organizations such as latter-day groups, unions, fraternal or athletic groups, or school groups? Yes 05/05/2024 How often do you attend meet ings of the clubs or organizations you belong to? Never 05/05/2024 Are you , , di vorced, , never , or living with a partner? 05/05/2024 AUDIT-C Answer Date Recorded Q1: How often do you have a drink containing alcohol? Never 05/05/2024 Q2: How many drinks containi ng alcohol do you have on a typical day when you are drinking? Patient does not drink Q3: How often do you have si x or more drinks on one occasion? Never 05/05/2024 Overall Financial Resource Strain (CARDIA) Answe r Date Recorded How hard is it for you to pa y for the very basics like food, housing, medical care, and heating? Not hard at all 05/05/2024 PHQ-2 Answer Date Recorded Patient Health Questionnaire-2 Score 0 03/25/2024 [facility] - Occupational Stress Questionnaire Answer Date Recorded Do you feel stress - tense, restless, nervous, or anxious, or unable to sleep at night because your mind is troubled all the time - these days? Not at all 05/05/2024 Exercise Vital Sign Answer Date Recorde d On average, how many days pe r week do you engage in moderate to strenuous exercise (like a brisk walk)? 1 day 05/05/2024 On average, how many minutes do you engage in exercise at this level? 10 min 05/05/2024 Hunger Vital Sign Answer Date Recorded Within the past 12 months, y ou worried that your food would run out before you got the money to buy more. Never true 05/06/19 25 Within the past 12 months, t he food you bought just didn't last and you didn't have money to get more. Never true 05/05/2024 PRAPARE - Transportation Answer Date Re corded In the past 12 months, has l ack of transportation kept you from medical appointments or from getting medications? No 04/23 In the past 12 months, has l ack of transportation kept you from meetings, work, or from getting things needed for daily living? No 05/05/2024 Housing Stability Vital Sign Answer Jeffy e [...] in a long-term (including now)? No 04/15/2023 Housing Stability Vital Sign Answer Jeffy e Recorded In the last 12 months, was t here a time when you were not able to pay the mortgage or rent on time? No 05/05/2024 In the past 12 months, how m any times have you moved where you were living? 0 05/05/2024 At any time in the past 12 m [facility], were you homeless or living in a long-term (including now)? No 05/05/2024 Comments Unknown Sex and Gender Information Value Date Recorded Sex Assigned at Not on file Legal Sex Female 7:12 PM EDT Gender Identity Not on file Sexual Orientation Not on file documented as of this encounter Plan of Treatment Upcoming Encounters Date Type Department Care Team (Late st Contact Info) Description 10/31/2024 4:30 PM EDT Office Visit [facility] [place] [address] [facility] [address] [place] [address] Sandro Avila MD [address] [place] [address] [place] [address] documented as of this encounter Visit Diagnoses Not on filedocumented in this encounter Care Teams Asset Management Lead Relationship Specialty Start Date End Date Sandro Avila MD [address] [place] [address] [place] [address] PCP - ACO Reach 07/17/22 Sandro Avila MD [address] [place] [address] [place] [address] PCP - General Internal Medicine 07/01/22 documented as of this encounter
--- OUTSIDE RECORDS SUMMARY | 2024-10-26 08:01 | XMS_ITS | Encounter Summary ---
Author Organization [facility] Address [address] [place] [address] Care Team Providers Care Ornament Stapler Name Role Phone Sandro Avila MD Unavailable [phone] Sandro Avila MD Primary Care Provider [phone] Encounter Details Date Type Department Care Team (Late st Contact Info) Description 07/28/2024 [facility] [address] [facility] [address] [place] [phone] Sandro Avila MD 112 [facility] 110 [place] [address] Social History Tobacco Use Types [...] week 05/05/2024 How often do you attend zoroastrianism or sabianist serv ices? Never 05/05/2024 Do you belong to any clubs o r organizations such as zoroastrianism groups, unions, fraternal or athletic groups, or [...] Recorded Patient Health Questionnaire-2 Score 0 03/25/2024 [facility] - Occupational Stress Questionnaire Answer Date Recorded [...] place to sleep or slept in a retirement (including now)? No 04/15/2023 Housing Stability Vital Sign Answer Jeffy e Recorded In the last 12 months, was t here a time when you were not able to pay the mortgage or rent on time? No 05/05/2024 In the past 12 months, how m any times have you moved where you were living? 0 05/05/2024 At any time in the past 12 m [facility], were you homeless or living in a retirement (including now)? No 05/05/2024 Comments Unknown Sex [...] Visit [facility] [place] [address] [facility] [address] [place] [address] Sandro Avila MD [address] [place] [address] [place] [address] documented as of this encounter Visit Diagnoses Not on filedocumented in this encounter Care Teams Ornament Stapler Relationship Specialty Start Date End Date Sandro Avila MD [address] [place] [address] [place] [address] PCP - ACO Reach 07/17/22 Sandro Avila MD [address] [place] [address] [place] [address] PCP - General Internal Medicine 07/01/22 documented as of this encounter
--- OUTSIDE RECORDS SUMMARY | 2024-10-26 08:01 | XMS_ITS | Clinical Summary ---
Author Organization [facility] Address [address] [place] [address] Care Team Providers Care Superintendent Measurement Name Role Phone Sandro Avila MD Unavailable [phone] Sadnro Avila MD Primary Care Provider [phone] Allergies Active Allergy Reactions Criticality Noted Date Comments Atorvastatin Unknown 10/16/2022 Codeine Unknown 10/16/2022 Mcnamara-2 Inhibitors (Sulfonamide) 11/13 Hydrocodone-Acetaminophen Hives 12/31/2004 Meperidine Unknown 10/16/2022 Meperidine Hcl 03/25/2024 Other Reaction(s): Not available Omeprazole Unknown 10/16/2022 Pravastatin Unknown 10/16/2022 Ranitidine Unknown 10/16/2022 Rofecoxib Other 10/16/2022 Rosuvastatin 03/25/2024 Other Reaction(s): Not available Sucralfate Unknown 10/16/2022 Sulfamethoxazole Unknown 10/16/2022 Sulfanilamide Unknown 10/16/2022 Trimethoprim Unknown 10/16/2022 Medications ondansetron (Zofran) 4 MG tablet Take 4 mg by mouth every 8 (eight) hours if needed. 022 Active montelukast (Singulair) 10 MG tablet Take 10 mg by mouth at bedtime. Active nitroglycerin (NitrolinguaL) 0.4 MG/SPRAY spray Place 1 spray under the tongue every 5 (five) minutes if needed for chest pain. Active NexIUM [address] capsule Take 1 capsule by mouth in the morning. Take before meals. Active alendronate (Fosamax) 70 MG tablet Active ipratropium-albu terol (Duo-Neb) 0.5-2.5 mg/3 mL nebulizer solution Active meclizine (Antivert) 25 MG tablet Active folic acid (Folvite) 1 MG tabletIndication s:Folic acid deficiency TAKE 4 TABLETS BY MOUTH DAILY 360 tablet 3 024 Active levothyroxine (Synthroid, Levoxyl) 50 MCG tabletIndication s:Multinodular goiter TAKE 2 TABLETS BY MOUTH ONCE EVERY MORNING ON AN EMPTY STOMACH 180 tablet 3 024 Active Fluticasone-Salm eterol (Wixela Inhub) 100-50 MCG/ACT aerosol powderIndication s:Moderate persistent asthma without complication (HCC) Take 1 puff by mouth in the morning and 1 puff before bedtime. 3 each 3 024 Active warfarin (Coumadin) 5 MG tabletIndication s:Hypercoagulabl e state (HHS-HCC) TAKE DIRECTED PER AFTER VISIT SUMMARY. 90 tablet 3 025 Active simvastatin (Zocor) 20 MG tabletIndication s:Pulmonary embolism with infarction (HCC) Take 1 tablet (20 mg) by mouth at bedtime 90 tablet 3 025 Active cyclobenzaprine (Flexeril) 10 MG tabletIndication s:Sciatica of left side Take 1 tablet (10 mg) by mouth every 8 (eight) hours if needed for muscle spasms 360 tablet 3 025 Active ipratropium-albu terol (Combivent Respimat) 20-100 MCG/ACT inhalerIndicatio ns:Mild persistent reactive airway disease without complication (HCC) Inhale 1 puff in the morning and 1 puff at noon and 1 puff in the evening and 1 puff before bedtime. 12 g 3 025 Active ranolazine (Ranexa) 500 MG 12 hr tabletIndication s:Mild persistent reactive airway disease without complication (HCC) Take 1 tablet (500 mg) by mouth in the morning and 1 tablet (500 mg) before bedtime. 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 with documented spasm TAKE 1 TABLET (60 MG) BY MOUTH IN THE MORNING 100 tablet 3 025 Active warfarin (Coumadin) 7.5 MG tabletIndication s:Hypercoagulabl e state ([facility]-HCC),Pulmon kana embolism with infarction (HCC) TAKE 1 TABLET BY MOUTH EVERY DAY 100 tablet 3 025 Active zolpidem (Ambien) 10 MG tabletIndication s:Primary insomnia Take 1 tablet (10 mg) by mouth as needed at bedtime for sleep 90 tablet 1 025 Active albuterol (2.5 MG/3ML) 0.083% nebulizer solutionIndicati ons:Moderate persistent asthma without complication (HCC) Take 3 mL (2.5 mg) by nebulization 4 (four) times a day 75 mL 3 025 Active albuterol (2.5 MG/3ML) 0.083% nebulizer solution Take 2.5 mg by nebulization in the morning and 2.5 mg at noon and 2.5 mg in the evening and 2.5 mg before bedtime. 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 with documented spasm TAKE 1 TABLET (60 MG) BY MOUTH IN THE MORNING 100 tablet 4 024 2024 Discontinued zolpidem (Ambien) 10 MG tabletIndication s:Primary insomnia Take 1 tablet (10 mg) by mouth as needed at bedtime for sleep 90 tablet 025 2024 Discontinued traMADol (Ultram) 50 MG tabletIndication s:Chronic left-sided lumbar radiculopathy Take 1 tablet (50 mg) by mouth every 6 (six) hours if needed for severe pain for up to 15 days 60 tablet 025 2024 Discontinued predniSONE (Deltasone) 20 MG tabletIndication s:Strain of lumbar region, initial encounter Take 1 tablet (20 mg) by mouth Daily for 5 days 5 tablet 025 2024 traMADol (Ultram) 50 MG tabletIndication s:Chronic left-sided lumbar radiculopathy Take 1 tablet (50 mg) by mouth every 6 (six) hours if needed for severe pain for up to 15 days 60 tablet 025 2024 Active Problems Problem Noted Date Diagnosed Date Osteoarthritis of hand 10/16/2022 Atherosclerosis of torres martinez co ronary artery of torres martinez heart with angina pectoris with documented spasm 07/22/2022 Bilateral pseudophakia 07/22/2022 Calculus of gallbladder with out cholecystitis without obstruction 07/22/2022 Chronic sinusitis 07/22/2022 Degenerative arthritis of finger 07/22/2022 Gastroesophageal reflux disease without esophagi tis 07/22/2022 Generalized osteoarthrosis, involving multiple s ites 07/22/2022 History of hysterectomy 07/22/2022 Hypercoagulable state ([facility]) 07/22/2022 Hypoglycemia 07/22/2022 Inflammatory spondylopathy 07/22/2022 Migraine with aura 07/22/2022 Moderate asthma without complication 07/22/2022 Multinodular goiter 07/22/2022 Orthostatic hypotension 07/22/2022 POTS (postural orthostatic tachycardia syndrome) 07/22/2022 Osteopenia 07/22/2022 Estrogen deficiency 07/22/2022 Overweight (BMI 25.0-29.9) 07/22/2022 Primary insomnia 07/22/2022 Other allergic rhinitis 07/22/2022 Pulmonary embolism with infarction 07/22/2022 Pure hypercholesterolemia 07/22/2022 Nocturnal hypoxia 07/22/2022 Sciatica 07/22/2022 Stage 3a chronic kidney disease 07/22/2022 SVT (supraventricular tachycardia) 07/22/2022 Thyroid cyst 07/22/2022 Epiretinal membrane 07/22/2022 Vitreous degeneration 07/22/2022 Vitreous opacities 07/22/2022 Encounters Date Type Department Care Team Description 10/17/2024 Telephone [facility] [address] [place] [address] Sandro Avila MD 10/13/2024 Abstract [facility] [address] [place] [address] Sandro Avila MD 10/12/2024 Orders Only [facility] [address] [place] [address] Aida Enriquez LPN Estrogen deficiency 10/11/2024 Abstract [facility] [address] [place] [address] Sandro Avila MD 10/10/2024 Telephone [facility] [address] [place] [address] Sandro Avila MD nebulizer 10/09/2024 Refill [facility] [address] [place] [address] Sandra Romero PA Primary insomnia; Chronic left-sided lumbar radiculopathy 09/27/2024 Refill [facility] [address] [place] [address] Sandro Avila MD 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 ; Hypercoagulable state ([facility]); Pulmonary embolism with infarction (HCC) 09/26/2024 Telephone [facility] [address] [place] [address] Yarelis Tejeda LPN 09/01/2024 11:30 AM EDT Office Visit [facility] [address] [place] [address] Sandro Avila MD Moderate persistent asthma without complication (HCC) (Primary Dx); Pulmonary embolism with infarction (HCC); Chronic kidney disease, stage 3a (CMS-HCC) 09/01/2024 Bamboo flowsheet [facility] [address] [place] [address] Sandro Avila MD 09/01/2024 Travel 08/04/2024 10:45 AM EDT Office Visit [facility] [address] [place] [address] Sandro Avila MD Pulmonary embolism with infarction (HCC) (Primary Dx); Chronic left-sided lumbar radiculopathy; Moderate persistent asthma without complication (HCC) 08/04/2024 Bamboo flowsheet [facility] [address] [place] [address] Sandro Avila MD 08/04/2024 Travel 07/30/2024 Refill [facility] [address] [place] [address] Sandro Avila MD Mild persistent reactive airway disease without complication (HCC) 07/28/2024 Abstract [facility] [address] [place] [address] Sandro Avila MD 07/28/2024 Abstract [facility] [address] [place] [address] Sandro Avila MD 07/28/2024 Abstract [facility] [address] [place] [address] Sandro Avila MD 07/27/2024 Abstract [facility] [address] [place] [address] Sandro Avila MD 07/27/2024 Telephone [facility] [address] [place] [address] Sandro Avila MD zolpidem approved 07/27/2024 Telephone [facility] [address] [facility] [address] [place] [address] Sandro Avila MD PA ZOLPIDEM from Last 3 Months Immunizations Immunization Administration Dates Next Due Influenza, High Dose Seasona l, Preservative Free 01/20/2022,01/15/2021,11/21/2019,12/23 Influenza, High-dose Seasona l, Quadrivalent, Preservative Free 01/06/2024,01/21/2023,11/21/2019,12/23 Influenza, injectable, quadrivalent 12/18/2015 Influenza, seasonal, intrade rmal, preservative free 01/07/2017,11/08/2014,12/11/2010 Pneumococcal Polysaccharide PPSV23 11/18/2018 Family History Medical History Relation Name Comments Heart disease Father Heart disease Mother Hypertension Mother Relation Name Status Comments Father Mother Social History Tobacco Use Types Packs/Day Years Used Date Smoking Tobacco: Never Smokeless Tobacco: Never Tobacco Cessation:Counseling Given: Not Answered Alcohol Use Standard Drinks/Week Comments Never 0 [...] week 05/05/2024 How often do you attend quaker or jain serv ices? Never 05/05/2024 Do you belong to any clubs o r organizations such as quaker groups, unions, fraternal or athletic groups, or [...] Date Recorded Patient Health Questionnaire-2 Score 0 09/01/2024 [facility] - Occupational Stress [...] place to sleep or slept in a care home (including now)? No 04/15/2023 Housing Stability Vital Sign Answer Jeffy e Recorded In the last 12 months, was t here a time when you were not able to pay the mortgage or rent on time? No 05/05/2024 In the past 12 months, how m any times have you moved where you were living? 0 05/05/2024 At any time in the past 12 m [facility], were you homeless or living in a care home (including now)? No 05/05/2024 Comments Unknown Sex and Gender Information Value Date Recorded Sex Assigned at Not on file Legal Sex Female 7:12 PM EDT Gender Identity Not on file Sexual Orientation Not on file Last Filed Vital Signs Vital Sign Reading Time Taken Comments Blood Pressure 124/70 09/01/2024 11:27 AM EDT Pulse 86 09/01/2024 11:27 AM EDT Temperature - - Respiratory Rate - - Oxygen Saturation 95% 09/01/2024 11:27 AM EDT Inhaled Oxygen Concentration - - Weight 77.1 kg (170 lb) 09/01/2024 11:27 AM EDT Height 161.3 cm (5' 3.5 ) 09/01/2024 11:27 AM ED T Body Mass Index 29.64 09/01/2024 11:27 AM EDT Plan of Treatment Upcoming Encounters Date Type Department Care Team (Late st Contact Info) Description 10/31/2024 4:30 PM EDT [facility] [address] [place] [address] Sandro Avila MD [address] [facility] [address] [place] [address] Health Maintenance Due Date Last Done Comments CT Colonography 1955 FIT 1955 FOBT 1955 Sigmoidoscopy 1955 Pneumococcal Vaccine: 65+ Ye ars (2 of 2 - PCV) 11/19/2019 11/18/2018 Colonoscopy 08/02/2023 08/01/2013 Mammogram 04/16/2024 04/16/2023, 02/23, 01/20/2022, Additional history exists Influenza Vaccine (#1) 2024 , 01/21/2023, 01/20/2022, Additional history exists Medicare Annual Wellness (AWV) 03/25/2025 0 03/25/2024, 01/21/2023, 01/20/2022, Additional history exists Colorectal Cancer Screening 2027 FIT-DNA 2027 02/01/2024 Procedures Procedure Name Priority Date/Time Associated Diagnosis Comments POCT PROTIME-INR, FINGERSTICK Routine 09/01/2024 11:45 AM EDT Pulmonary embolism with infarction (HCC) POCT PROTIME-INR, FINGERSTICK Routine 08/04/2024 10:51 AM EDT Pulmonary embolism with infarction (HCC) LAB COLOGUARD COLON CANCER SCREEN Routine 02/01/2024 9:00 AM EST Encounter for screening for malignant neoplasm of colon MM TOMOSYNTHESIS SCREENING BI 04/16/2023 7:59 AM EST COLONOSCOPY Routine 08/01/2013 12:00 PM EDT from Last 3 Months or Most Recently Relevant to Health Maintenance Results * POCT Protime-INR, fingerstick docked device (09/01/2024 11:45 AM EDT) Only the most recent of2 resultswithin the time period is included. Pathologist [facility] RESULTS 3.1 Blood Venous blood specimen / Unknown 09/01/2024 11:45 AM EDT Sandro Avila MD POINT OF CARE TEST ENTER/EDIT ORDERABLES Final Result * Cologuard?? colon cancer screening (02/01/2024 9:00 AM EST) NONINV COLON CA DNA+OCC BLD SCRN STL-IMP Negative Negative 02/10/2024 1:44 PM EST [facility] (CLIA #:[id number]) Comment: NEGATIVE TEST RESULT. A negative Cologuard result indicates a low likelihood that a colorectal cancer (CRC) or advanced adenoma (adenomatous polyps with more advanced pre-malignant features) is present. The chance that a person with a negative Cologuard test has a colorectal cancer is less than 1 in 1500 (negative predictive value >99.9%) or has an advanced adenoma is less than 5.3% (negative predictive value 94.7%). These data are based on a prospective cross-sectional study of 10,000 individuals at average risk for colorectal cancer who were screened with both Cologuard and colonoscopy. (Megan Macario al, N Engl J Med 2014;370(14):7291-5270) The normal value (reference range) for this assay is negative. COLOGUARD RE-SCREENING RECOMMENDATION: Periodic colorectal cancer screening is an important part of preventive healthcare for asymptomatic individuals at average risk for colorectal cancer. Following a negative Cologuard result, the [place] Cancer Society and U.S. Multi-Society Task Force screening guidelines recommend a Cologuard re-screening interval of 3 years. References: [place] [employer] Society Guideline for Colorectal Cancer Screening: https://www.cancer.org/cancer/sphuw-igqmtx-rukdth/hjojuooeu-ckakfbkdj-jdvhhlt/ac s-rec ommendations.html.; Aquiles DK, Bennie CR, Sabine HutchinsK, Colorectal Cancer Screening: Recommendations for Physicians and Patients from the U.S. Multi-Society Task Force on Colorectal Cancer Screening , Am J Gastroenterology 2017; 112:2695-4949. TEST DESCRIPTION: Composite algorithmic analysis of stool DNA-biomarkers with hemoglobin immunoassay. Quantitative values of individual biomarkers are not reportable and are not associated with individual biomarker result reference ranges. Cologuard is intended for colorectal cancer screening of adults of either sex, 45 years or older, who are at average-risk for colorectal cancer (CRC). Cologuard has been approved for use by the U.S. FDA. The performance of Cologuard was established in a cross sectional study of average-risk adults aged 50-84. Cologuard performance in patients ages 45 to 49 years was estimated by sub-group analysis of near-age groups. Colonoscopies performed for a positive result may find as the most clinically significant lesion: colorectal cancer [4.0%], advanced adenoma (including sessile serrated polyps greater than or equal to 1cm diameter) [20%] or non- advanced adenoma [31%]; or no colorectal neoplasia [45%]. These estimates are derived from a prospective cross-sectional screening study of 10,000 individuals at average risk for colorectal cancer who were screened with both Cologuard and colonoscopy. (Megan Macario al, N Engl J Med 2014;370(14):1588-2571.) Cologuard may produce a false negative or false positive result (no colorectal cancer or precancerous polyp present at colonoscopy follow up). A negative Cologuard test result does not guarantee the absence of CRC or advanced adenoma (pre-cancer). The current Cologuard screening interval is every 3 years. ([place] Cancer Society and U.S. Multi-Society Task Force). Cologuard performance data in a 10,000 patient pivotal study using colonoscopy as the reference method can be accessed at the following location: www.[employer]/results. Additional description of the Cologuard test process, warnings and precautions can be found at www.[employer]. Stool specimen (specimen) 02/01/2024 9:00 AM EST 02/03/2024 3:23 PM EST us Sandro Avila MD LAB MOLECULAR DIAGNOSTICS FLORI STEWART Final Result [facility] (CLIA #:[id number]) [address] [place] [address], * MM TOMOSYNTHESIS SCREENING BI (04/16/2023 7:59 AM EST) Anatomical Region Laterality Modality Other 04/16/2023 7:59 AM EST Narrative 04/16/2023 8:00 [place] [address] Mammography Report Signed Patient: KRISTINA VARGAS MR#: [id number] : 1955 Acct:[id number] Age/Sex: 68 / F ADM Date: 04/15/23 Loc: MAMMO Attending Dr: SANDRO AVILA Ordering Physician: SANDRO AVILA Results: Date of Service: 04/15/23 Follow Up: Procedure(s): MM tomosynthesis screening BI Accession Number(s): [id number] cc: VINNIESANDRO Patient Name: KRISTINA VARGAS MR#: [id number] : 1955 Exam Date: 04/15/2023 Ordering Doctor: DR SANDRO AVILA M.D. RADIOLOGY REPORT PROCEDURE: MM TOMOSYNTHESIS SCREENING BI COMPARISON: MG MAMM SCREEN 3D JALIL CAD, 03/07/2022. MG MAMM SCREEN 3D JALIL CAD, 01/18/2021. MG MAMM SCREEN JALIL W CAD, 12/28/2019. MG MAMM JALIL SCRN W CAD DIG, 07/02/2012. INDICATIONS: screening Calculator Name NCI Breast Cancer Risk Assessment Tool 5 Year Breast Cancer Risk 1.20% Lifetime Breast Cancer Risk 3.70% Personal Breast Cancer No Personal Ovarian Cancer No Treatments None Family Cancers Aunt-maternal with breast cancer at age 48; Aunt-maternal with breast cancer at age 69; Aunt-maternal with breast cancer at age 71; Aunt-maternal with breast cancer at age 68; Cousin-maternal with ovarian cancer at age 58. LOCATION: [facility] BREAST COMPOSITION: Scattered areas fibroglandular density. FINDINGS: DIAGNOSTIC CATEGORY 2--BENIGN FINDING: RIGHT BREAST: No significant suspicious finding. Scattered benign-appearing calcifications are present. No significant change has occurred. LEFT BREAST: No significant suspicious finding. Stable, chronic benign appearing lymph node lower-outer quadrant, mid breast. No significant change has occurred. RECOMMENDATIONS: ROUTINE MAMMOGRAM AND CLINICAL EVALUATION IN 12 MONTHS. PLEASE NOTE: A NORMAL MAMMOGRAM DOES NOT EXCLUDE THE POSSIBILITY OF BREAST CANCER. A CLINICALLY SUSPICIOUS PALPABLE LUMP SHOULD BE BIOPSIED. Dictated by: Addy Nj M.D. on 04/16/2023 at 07:57 Approved by: Addy Nj M.D. on 04/16/2023 at 07:59 Dictated By: Addy Nj M.D. Signed By: 04/16/23 0800 DD/ 0759 TD/TT: [employer] Director: Procedure Note Radiology, Radiologist, - 04/16/2023 [place] [address] Mammography Report Signed Patient: KRISTINA VARGAS MMR#: [id number] : 1955cct:[id number] Age/Sex: 68 / FADM Date: 04/15/23 Loc: MAMMO Attending Dr: SANDRO AVILA Ordering Physician: SANDRO AVILAResults: Date of Service: 04/15/23Follow Up: Procedure(s): MM tomosynthesis screening BI Accession Number(s): [id number] cc: TOMAS AVILAEL Patient Name: KRISTINA VARGAS MR#: [id number] : 1955 Exam Date: 04/15/2023 Ordering Doctor: DR SANDRO AVILA M.D. RADIOLOGY REPORT PROCEDURE: MM TOMOSYNTHESIS SCREENING BI COMPARISON: MG MAMM SCREEN 3D JALIL CAD, 03/07/2022. MG MAMM SCREEN 3DBIL CAD, 01/18/2021. MG MAMM SCREEN JALIL W CAD, 12/28/2019. MG MAMM JALIL SCRNW CAD DIG, 07/02/2012. INDICATIONS: screening Calculator Name NCI Breast Cancer Risk Assessment Tool 5 Year Breast Cancer Risk 1.20% Lifetime Breast Cancer Risk 3.70% Personal Breast Cancer No Personal Ovarian Cancer No Treatments None Family Cancers Aunt-maternal with breast cancer at age 48;Aunt-maternal with breast cancer at age 69; Aunt-maternal with breast cancer at age 71; Aunt-maternal with breast cancer at age 68; Cousin-maternal with ovarian cancer at age 58. LOCATION: [facility] BREAST COMPOSITION: Scattered areas fibroglandular density. FINDINGS: DIAGNOSTIC CATEGORY 2--BENIGN FINDING: RIGHT BREAST: No significant suspicious finding. Scatteredbenign-appearing calcifications are present. No significant change has occurred. LEFT BREAST: No significant suspicious finding. Stable, chronic benign appearing lymph node lower-outer quadrant, mid breast. No significantchange has occurred. RECOMMENDATIONS: ROUTINE MAMMOGRAM AND CLINICAL EVALUATION IN 12 MONTHS. PLEASE NOTE: A NORMAL MAMMOGRAM DOES NOT EXCLUDE THE POSSIBILITY OFBREAST CANCER. A CLINICALLY SUSPICIOUS PALPABLE LUMP SHOULD BE BIOPSIED. Dictated by: Addy Nj M.D. on 04/16/2023 at 07:57 Approved by: Addy Nj M.D. on 04/16/2023 at 07:59 Dictated By: Addy Nj M.D. Signed By:04/16/23 0800 DD/ 0759 TD/TT: [employer] Director: us Sandro Avila MD [facility] Final Result * Colonoscopy (08/01/2013 12:00 PM EDT) Anatomical Region Laterality Modality Endoscopy 08/01/2013 12:0 0 PM EDT Narrative 08/01/2013 12:00 PM EDT PERFORMED AT [facility] LOCATION:[id number] IBS Procedure Note CONVERSION, GENERIC - 07/10/2022 PERFORMED AT [facility] LOCATION:[id number] IBS us Sandro Avila MD ENDOSCOPY PROCEDURE ORDERABLES Final Result from Last 3 Months or Most Recently Relevant to Health Maintenance [place] [address] [facility] Member Subscriber Plan / Payer (Ef fective 2015-Present) Name:Kristina Vargas Relation to Subscriber:Self Name:Kristina Vargas Payer ID:Not on file Group ID:[id number] Type:Not on file Address: [facility] [id number] [place] [address] Care Teams Superintendent Measurement Relationship Specialty Start Date End Date Sandro Avila MD [address] [facility] [address] [place] [address] PCP - ACO Reach 07/17/22 Sandro Avila MD [address] [facility] [address] [place] [address] PCP - General Internal Medicine 07/01/22
--- OUTSIDE RECORDS SUMMARY | 2024-10-26 08:01 | XMS_ITS | Encounter Summary ---
Author Organization [facility] Address [address] [place] [address] Care Team Providers Care Manager Of Manufacturing Name Role Phone Sandro Avila MD Unavailable [phone] Sandro Avila MD Primary Care Provider [phone] Encounter Details Date Type Department Care Team (Late st Contact Info) Description 07/28/2024 [facility] [place] [facility] 110 [place] [phone] Sandro Avila MD 112 [facility] 110 [place] [address] Social History Tobacco Use Types [...] week 05/05/2024 How often do you attend mormon or restorationism serv ices? Never 05/05/2024 Do you belong to any clubs o r organizations such as mormon groups, unions, fraternal or athletic groups, or [...] Recorded Patient Health Questionnaire-2 Score 0 03/25/2024 [facility] of Occupat ional [facility] - Occupational Stress Questionnaire Answer Date Recorded [...] place to sleep or slept in a jail (including now)? No 04/15/2023 Housing Stability Vital Sign Answer Jeffy e Recorded In the last 12 months, was t here a time when you were not able to pay the mortgage or rent on time? No 05/05/2024 In the past 12 months, how m any times have you moved where you were living? 0 05/05/2024 At any time in the past 12 m [facility], were you homeless or living in a jail (including now)? No 05/05/2024 Comments Unknown Sex [...] Visit [facility] [place] [address] [facility] 110 [place] [address] Sandro Avila MD [address] [place] [address] [place] [address] documented as of this encounter Visit Diagnoses Not on filedocumented in this encounter Care Teams Manager Of Manufacturing Relationship Specialty Start Date End Date Sandro Avila MD [address] [place] [address] [place] [address] PCP - ACO Reach 07/17/22 Sandro Avila MD [address] [place] [address] [place] [address] PCP - General Internal Medicine 07/01/22 documented as of this encounter
--- OUTSIDE RECORDS SUMMARY | 2024-10-26 08:01 | XMS_ITS | Encounter Summary ---
Author Organization [facility] Address [address] [place] [address] Care Team Providers Care Hemstitching Machine Operator Name Role Phone Sandro Avila MD Unavailable [phone] Sandro Avila MD Primary Care Provider Encounter Details Date Type Department Care Team (Late st Contact Info) Description 07/05/2024 Abstract [facility] [place] [facility] 112 [facility] 110 [place] [phone] Sandro Avila MD 112 [facility] 110 [place] [address] Social History Tobacco Use Types [...] week 05/05/2024 How often do you attend bahai or uatsdin serv ices? Never 05/05/2024 Do you belong to any clubs o r organizations such as bahai groups, unions, fraternal or athletic groups, or [...] Recorded Patient Health Questionnaire-2 Score 0 03/25/2024 [facility] of Occupat ional [facility] - Occupational Stress Questionnaire Answer Date Recorded [...] place to sleep or slept in a skilled nursing (including now)? No 04/15/2023 Housing Stability Vital Sign Answer Jeffy e Recorded In the last 12 months, was t here a time when you were not able to pay the mortgage or rent on time? No 05/05/2024 In the past 12 months, how m any times have you moved where you were living? 0 05/05/2024 At any time in the past 12 m [facility], were you homeless or living in a skilled nursing (including now)? No 05/05/2024 Comments Unknown Sex [...] Visit [facility] [place] [address] [facility] 110 [place] [address] Sandro Avila MD [address] [place] [address] [place] [address] documented as of this encounter Visit Diagnoses Not on filedocumented in this encounter Care Teams Hemstitching Machine Operator Relationship Specialty Start Date End Date Sandro Avila MD [address] [place] [address] [place] [address] PCP - ACO Reach 07/17/22 Sandro Avila MD [address] [place] [address] [place] [address] PCP - General Internal Medicine 07/01/22 documented as of this encounter
--- OUTSIDE RECORDS SUMMARY | 2024-10-26 08:01 | XMS_ITS | Encounter Summary ---
Author Organization [facility] Address [address] [place] [address] Care Team Providers Care Wrapper Layer And Examiner Soft Work Name Role Phone Sandro Avila MD Unavailable [phone] Sandro Avila MD Primary Care Provider [phone] Encounter Details Date Type Department Care Team (Late st Contact Info) Description 10/12/2024 Orders Only [facility] [place] [facility] [address] [place] [address] [place] [address] Aida Enriquez LPN [address] [place] [address] Estrogen deficiency Social History Tobacco Use Types Packs/Day Years [...] week 05/05/2024 How often do you attend confucianist or presybeterian serv ices? Never 05/05/2024 Do you belong to any clubs o r organizations such as confucianist groups, unions, fraternal or athletic groups, or [...] Recorded Patient Health Questionnaire-2 Score 0 09/01/2024 [facility] of Occupat ional Health - Occupational Stress [...] place to sleep or slept in a correction (including now)? No 04/15/2023 Housing Stability Vital [...] in the past 12 m [facility], were you homeless or living in a correction (including now)? No 05/05/2024 Comments Unknown Sex and Gender Information Value Date Recorded Sex Assigned at Not on file Legal Sex Female 7:12 PM EDT Gender Identity Not on file Sexual Orientation Not on file documented as of this encounter Plan of Treatment Upcoming Encounters Date Type Department Care Team (Late st Contact Info) Description 10/31/2024 4:30 PM EDT Office Visit [facility] [address] [facility] [address] [place] [address] Sandro Avila MD [address] [place] [address] [place] [address] documented as of this encounter Visit Diagnoses Diagnosis Estrogen deficiency Other ovarian failure documented in this encounter Care Teams Wrapper Layer And Examiner Soft Work Relationship Specialty Start Date End Date Sandro Avila MD [address] [place] [address] [place] [address] PCP - ACO Reach 07/17/22 Sandro Avila MD [address] [place] [address] [place] [address] PCP - General Internal Medicine 07/01/22 documented as of this encounter
--- OUTSIDE RECORDS SUMMARY | 2024-10-26 08:01 | XMS_ITS | Clinical Summary ---
Author Organization [facility] Address [address] [place] [address] Care Team Providers Care Broadcast Supervisor Name Role Phone Sandro Avila (Hist) II Primary Care Provider Allergies Active Allergy Reactions Criticality Noted Date Comments Codeine 11/14/2003 Mcnamara-2 Inhibitor 11/14/2003 Atorvastatin Calcium 12/31/2004 Omeprazole 11/14/2003 Pravastatin Sodium 12/31/2004 Ranitidine 11/14/2003 Sucralfate 11/14/2003 Sulfa (Sulfonamide Antibiotics) 10/25 Hydrocodone-Acetaminophen Hives 12/31/2004 Medications FOLIC ACID 1MG TABLET Take four (4) tablets every day 30 0 4 Active COUMADIN 10MG TABLET Take one (1) tablet every day. 30 0 4 Active CLARINEX 5MG TABLET Take one(1) tablet daily. 30 0 4 Active SINGULAIR 10MG TABLET Take one(1) tablet daily. 30 0 4 Active NEXIUM 40MG CAPSULE Take one(1) tablet two(2) times daily. 60 0 4 Active NEURONTIN 300MG CAPSULE Take one(1) tablet daily. 30 0 4 Active DARVOCET-N 100 TABLET Take one (1) tablet every four(4) hours as needed for pain. 30 0 4 Active ADVAIR 500/50 DISKUS Take one puff two(2) times daily. 1 0 4 Active NASONEX 50MCG NASAL SPRAY One spray in each nostril twice daily 1 0 4 Active COMBIVENT INHALER as necessary 1 0 4 Active FIRM COMPRESSION STOCKINGSIndica tions:Dizziness and giddiness Knee high at 30-40 mmHg compression for chronic venous insufficiency associated with dizziness. Jobst, Sigvaris, or Spa brand. 1 1 5 Active MIDRIN CAPSULE as necessary for migraine 0 5 Active IMDUR 60 MG 24 HR TAB Take one(1) tablet daily. 0 5 Active ZOCOR 10 MG TAB Take one(1) tablet daily. 1 5 Active FLORINEF 0.1 MG TABIndications: Orthostatic hypotension TAKE ONE TABLET A DAY FOR 2 DAYS THEN TAKE 1/2 TABLET A DAY FOR 5 DAYS THEN TAKE 1/2 TABLET EVERY OTHER DAY FOR 2 WEEKS THEN TAKE 1/2 TABLET EVERY THIRD DAY. 20 1 5 Active Active Problems Problem Noted Date Diagnosed Date Dizziness and giddiness 02/13/2004 Hypotension 02/13/2004 Social History Tobacco Use Types Packs/Day Years Used Date Smoking Tobacco: Never Assessed Comments No Sex and Gender Information Value Date Recorded Sex Assigned at Not on file Legal Sex Female 8:55 AM EST Gender Identity Not on file Sexual Orientation Not on file Last Filed Vital Signs Vital Sign Reading Time Taken Comments Blood Pressure 100/66 03/27/2004 11:23 AM EST Pulse 96 03/27/2004 11:23 AM EST Temperature - - Respiratory Rate - - Oxygen Saturation - - Inhaled Oxygen Concentration - - Weight 79 kg (174 lb 3.2 oz) 03/27/2004 11:23 AM EST Height 159.4 cm (5' 2.75 ) 03/27/2004 11:[address] Body Mass Index 31.1 03/27/2004 11:23 AM EST Plan of Treatment Health Maintenance Due Date Last Done Comments Anxiety Screening 1971 Depression Screening 1971 Hepatitis C Screening 1971 DTaP,Tdap,Td Vaccine (1 - Tdap) 02/01/[address] Colonography 1998 Cologuard (FIT-DNA) 1998 Colonoscopy 1998 Colorectal Cancer Screening 1998 Fecal Occult Blood 1998 Lipid Screening 1998 Sigmoidoscopy 1998 Pneumococcal Vaccine: 50+ (1 of 1 - PCV) 2003 Shingrix Vaccine (1 of 2) 2003 Diabetes Screening 01/01/2008 12/31/2004, 11/21/2003 Bone Density Screening 2018 Advance Directive Discussion 02/24/2024 Influenza Vaccine (#1) 2024 RSV Vaccine (1 - 1-dose 75+ series) 02/01/2028 Procedures Procedure Name Priority Date/Time Associated Diagnosis Comments BASIC METABOLIC PANEL Routine 12/31/2004 12:32 PM EST Dizziness And Giddiness from Last 3 Months or Most Recently Relevant to Health Maintenance Results * (ABNORMAL) BASIC METABOLIC PNL (12/31/2004 12:32 PM EST) Glucose 96 65 - 100 mg/dL [facility] BUN 19 8 - 25 mg/dL [facility] Creatinine 0.9 0.7 - 1.4 mg/dL [facility] Sodium 140 132 - 148 mmol/L [facility] Potassium 4.5 3.5 - 5.0 mmol/L [facility] Chloride 102 98 - 110 mmol/L [facility] CO2 24 23 - 32 mmol/L [facility] Anion Gap 14 0 - 15 mmol/L [facility] Calcium 10.7(A) 8.5 - 10.5 mg/dL [facility] Blood specimen (specimen) BLOOD SPECIMEN / Unknown 12/31/2004 12:32 PM EST Kristin Ty MD LABORATORY Final R esult [facility] [address] [place] [address] from Last 3 Months or Most Recently Relevant to Health Maintenance [address] [place] [address] [facility] FEP PPO [employer] Care Teams Broadcast Supervisor Relationship Specialty Start Date End Date Sandro Avila (Hist) II [address] [place] [address] PCP - General 01/24/05
--- OUTSIDE RECORDS SUMMARY | 2024-10-26 08:01 | XMS_ITS | Encounter Summary ---
Author Organization [facility] Address [address] [place] [address] Care Team Providers Care Machine Woodworking Sander Name Role Phone Sandro Avila MD Unavailable [phone] Sandro Avila MD Primary Care Provider [phone] Encounter Details Date Type Department Care Team (Late st Contact Info) Description 05/16/2024 Abstract [facility] [place] [facility] [address] [facility] 110 [place] [address] Sandro Avila MD [address] [facility] 110 [place] [address] Social History Tobacco Use Types [...] week 05/05/2024 How often do you attend methodist or yazidism serv ices? Never 05/05/2024 Do you belong to any clubs o r organizations such as methodist groups, unions, fraternal or athletic groups, or [...] Recorded Patient Health Questionnaire-2 Score 0 03/25/2024 [facility] of Occupat ional [facility] - Occupational Stress Questionnaire Answer Date [...] any time in the past 12 m [facility], were you homeless or living in [...] [address] [facility] [address] [place] [address] Sandro Avila MD [address] [place] [address] [place] [address] documented as of this encounter Visit Diagnoses Not on filedocumented in this encounter Care Teams Machine Woodworking Sander Relationship Specialty Start Date End Date Sandro Avila MD [address] [place] [address] [place] [address] PCP - ACO Reach 07/17/22 Sandro Avila MD [address] [place] [address] [place] [address] PCP - General Internal Medicine 07/01/22 documented as of this encounter
--- OUTSIDE RECORDS SUMMARY | 2024-10-26 08:01 | XMS_ITS | Encounter Summary ---
Author Organization [facility] Address [address] [facility] [place] [address] Care Team Providers Care Quitline Counselor Name Role Phone Sandro Avila MD Unavailable [phone] Sandro Avila MD Primary Care Provider [phone] Encounter Details Date Type Department Care Team (Late st Contact Info) Description 01/27/2024 [facility] [place] [facility] [address] [facility] 110 [place] [address] Sandro Avila MD [address] [facility] 110 [place] [address] Social History Tobacco Use Types [...] often do you attend chur ch or jehovah's witness services? 1 to 4 times per year 04/15/2023 Do you belong to any clubs o r organizations such as sabianist groups, unions, fraternal or athletic groups, or [...] care, and heating? Not very hard 04/15/2023 [facility] of Occupat ional Health - Occupational Stress [...] place to sleep or slept in a snf (including now)? No 04/15/2023 Comments Unknown Sex [...] Visit [facility] [place] [address] [facility] [address] [place] [address] Sandro Avila MD [address] [facility] 110 [place] [address] documented as of this encounter Visit Diagnoses Not on filedocumented in this encounter Care Teams Quitline Counselor Relationship Specialty Start Date End Date Sandro Avila MD [address] [facility] [address] [place] [address] PCP - ACO Reach 07/17/22 Sandro Avila MD [address] [facility] [address] [place] [address] PCP - General Internal Medicine 07/01/22 documented as of this encounter
--- OUTSIDE RECORDS SUMMARY | 2024-10-26 08:01 | XMS_ITS | Encounter Summary ---
Author Organization [facility] Address [address] [facility] [place] [address] Care Team Providers Care Jewel Bearing Broacher Name Role Phone Sandro Avila MD Unavailable [phone] Sandro Avila MD Primary Care Provider [phone] Encounter Details Date Type Department Care Team (Late Contact Info) Description 12/23/2022 Abstract [facility] [place] [facility] 112 [facility] 110 [place] [phone] Sandro Avila MD 112 [facility] 110 [place] [address] Social History Tobacco Use Types Packs/Day Years Used Date Smoking Tobacco: Never Smokeless Tobacco: Never Alcohol Use Standard Drinks/Week Comments Never 0 (1 standard drink = 0.6 oz pur e alcohol) Comments Unknown Sex and Gender Information Value Date Recorded Sex Assigned at Not on file Legal Sex Female 7:12 PM EDT Gender Identity Not on file Sexual Orientation Not on file documented as of this encounter Plan of Treatment Upcoming Encounters Date Type Department Care Team (Late st Contact Info) Description 10/31/2024 4:30 PM EDT Office Visit [facility] [place] [facility] [address] [facility] 110 [place] [address] Sandro Avila MD 112 [facility] 110 [place] [address] documented as of this encounter Visit Diagnoses Not on filedocumented in this encounter Care Teams Jewel Bearing Broacher Relationship Specialty Start Date End Date Sandro Avila MD [address] [facility] 110 [place] [address] PCP - ACO Reach 07/17/22 Sandro Avila MD [address] [facility] 110 [place] [address] PCP - General Internal Medicine 07/01/22 documented as of this encounter
--- OUTSIDE RECORDS SUMMARY | 2024-10-26 08:01 | XMS_ITS | Encounter Summary ---
Author Organization [facility] Address [address] [place] [address] Care Team Providers Care Emergency Department Director Name Role Phone Sandro Avila MD Unavailable [phone] Sandro Avila MD Primary Care Provider Encounter Details Date Type Department Care Team (Late st Contact Info) Description 10/17/2024 Telephone [facility] [place] [facility] [address] [facility] 110 [place] [address] Sandro Avila MD [address] [facility] 110 [place] [address] Social History Tobacco Use Types [...] week 05/05/2024 How often do you attend rastafarian or zoroastrianism serv ices? Never 05/05/2024 Do you belong to any clubs o r organizations such as rastafarian groups, unions, fraternal or athletic groups, or [...] Recorded Patient Health Questionnaire-2 Score 0 09/01/2024 [facility] of Occupat ional [facility] - Occupational Stress Questionnaire Answer Date Recorded [...] place to sleep or slept in a mcfp (including now)? No 04/15/2023 Housing Stability Vital Sign Answer Jeffy e Recorded In the last 12 months, was t here a time when you were not able to pay the mortgage or rent on time? No 05/05/2024 In the past 12 months, how m any times have you moved where you were living? 0 05/05/2024 At any time in the past 12 m [facility], were you homeless or living in a mcfp (including now)? No 05/05/2024 Comments Unknown Sex and Gender Information Value Date Recorded Sex Assigned at Not on file Legal Sex Female 7:12 PM EDT Gender Identity Not on file Sexual Orientation Not on file documented as of this encounter Miscellaneous Notes * Telephone Encounter - Kim Pickens MA - 10/17/2024 4:45 PM EDT Needed order sfor nebulizer documented in this encounter Plan of Treatment Upcoming Encounters Date Type Department Care Team (Late st Contact Info) Description 10/31/2024 4:30 PM EDT Office Visit [facility] [place] [address] [facility] [address] [place] [address] Sandro Avila MD [address] [facility] 110 [place] [address] documented as of this encounter Visit Diagnoses Not on filedocumented in this encounter Care Teams Emergency Department Director Relationship Specialty Start Date End Date Sandro Avila MD [address] [facility] 110 [place] [address] PCP - ACO Reach 07/17/22 Sandro Avila MD [address] [facility] 110 [place] [address] PCP - General Internal Medicine 07/01/22 documented as of this encounter
--- OUTSIDE RECORDS SUMMARY | 2024-10-26 08:01 | XMS_ITS | Encounter Summary ---
Author Organization [facility] Address [address] [facility] [place] [address] Care Team Providers Care Jail Keeper Name Role Phone Sandro Avila MD Unavailable [phone] Sandro Avila MD Primary Care Provider [phone] Encounter Details Date Type Department Care Team (Late Contact Info) Description 01/28/2023 Abstract [facility] [place] [facility] 112 [facility] 110 [place] [phone] Sandro Avila MD 112 [facility] 110 [place] [address] Social History Tobacco Use Types Packs/Day Years [...] Office Visit [facility] [place] [address] [facility] [address] [place] [phone] Sandro Avila MD 112 [facility] 110 [place] [address] documented as of this encounter Visit Diagnoses Not on filedocumented in this encounter Care Teams Jail Keeper Relationship Specialty Start Date End Date Sandro Avila MD [address] [facility] 110 [place] [address] PCP - ACO Reach 07/17/22 Sandro Avila MD [address] [facility] [address] [place] [address] PCP - General Internal Medicine 07/01/22 documented as of this encounter
--- OUTSIDE RECORDS SUMMARY | 2024-10-26 08:01 | XMS_ITS | Encounter Summary ---
Author Organization [facility] Address [address] [facility] [place] [place] [address] Care Team Providers Care Manager Sterile Processing Name Role Phone Sandro Avila MD Unavailable [phone] Sandro Avila MD Primary Care Provider [phone] Encounter Details Date Type Department Care Team (Late Contact Info) Description 03/16/2023 Abstract [facility] [place] [facility] 112 [facility] 110 [place] [address] Sandro Avila MD 112 [facility] 110 [place] [address] Social History Tobacco Use Types Packs/Day Years [...] Office Visit [facility] [place] [address] [facility] [address] [place] [phone] Sandro Avila MD 112 [facility] 110 [place] [address] documented as of this encounter Visit Diagnoses Not on filedocumented in this encounter Care Teams Manager Sterile Processing Relationship Specialty Start Date End Date Sandro Avila MD [address] [facility] [address] [place] [address] PCP - ACO Reach 07/17/22 Sandro Avila MD [address] [facility] [address] [place] [address] PCP - General Internal Medicine 07/01/22 documented as of this encounter
--- OUTSIDE RECORDS SUMMARY | 2024-10-26 08:01 | XMS_ITS | Clinical Summary ---
Author Organization [facility] Address [address] [place] [address] Care Team Providers Care Office Manager Executive Assistant Name Role Phone Sandro Avila MD Primary Care Provider [phone] Allergies Active Allergy Reactions Criticality Noted Date Comments Codeine Rash Low 11/14/2021 Meperidine Other 11/14/2021 Sulfa (Sulfonamide Antibiotics) Hives 10/25 Medications warfarin (Coumadin) 7.5 mg tablet Take 7.5 mg by mouth. Take as directed per After Visit Summary. Active ranolazine (Ranexa) 1,000 mg 12 hr tablet Take 1,000 mg by mouth in the morning and at bedtime. Do not crush, chew, or split. Active isosorbide mononitrate ER (Imdur) 60 mg 24 hr tablet Take 60 mg by mouth in the morning. Do not crush or chew. Active simvastatin (Zocor) 20 mg tablet Take 20 mg by mouth at bedtime. Active folic acid (Folvite) 1 mg tablet Take by mouth in the morning. Active traMADol (Ultram) 50 mg tablet Take by mouth. Active cyclobenzaprine (Flexeril) 10 mg tablet Take 10 mg by mouth if needed in the morning, at noon, and at bedtime for muscle spasms. Active Social History Tobacco Use Types Packs/Day Years Used Date Smoking Tobacco: Never Assessed [place] Safety & Environment Answer Date Rec orded Fear of Current or Ex-Partner Not on file Emotionally Abused Not on file 04/16/2023 Physically Abused Not on file 04/16/2023 Sexually Abused Not on file 04/16/2023 Physically or Sexually Abused Not on file Comments Unknown Sex and Gender Information Value Date Recorded Sex Assigned at Not on file Legal Sex Female 9:42 PM EDT Gender Identity Not on file Sexual Orientation Not on file Last Filed Vital Signs Vital Sign Reading Time Taken Comments Blood Pressure - - Pulse - - Temperature - - Respiratory Rate - - Oxygen Saturation - - Inhaled Oxygen Concentration - - Weight 74.8 kg (165 lb) 11/14/2021 3:48 PM EDT Height 161.3 cm (5' 3.5 ) 11/14/2021 3:48 PM EDT Body Mass Index 28.77 11/14/2021 3:48 PM EDT Plan of Treatment Health Maintenance Due Date Last Done Comments CT Colonography 1955 Colonoscopy 1955 Colorectal Cancer Screening 1955 FIT-DNA 1955 FIT 1955 FOBT 1955 Medicare Annual Wellness (AWV) 1955 Sigmoidoscopy 1955 Depression Screening 1965 Adult Tetanus 1975 Mammogram 1993 Zoster Vaccines (1 of 2) 2003 Fall Risk Screening 2018 Pneumococcal Vaccine: 50+ Years (2 of 2 - PCV) 11/19/2019 11/18/2018 COVID-19 Vaccine (2 - season) 2023 04/30/2020 Influenza Vaccine (#1) 2024 3, 01/15/2021, 11/21/2019, Additional history exists HIB Vaccines Aged Out No longer eligi ble based on patient's age to complete this topic HPV Vaccines Aged Out No longer eligi ble based on patient's age to complete this topic IPV Vaccines Aged Out No longer eligi ble based on patient's age to complete this topic Meningococcal B Vaccine Aged Out No l onger eligible based on patient's age to complete this topic Meningococcal Vaccine Aged Out No maria guadalupe kelsea eligible based on patient's age to complete this topic Rotavirus Vaccines Aged Out No longer eligible based on patient's age to complete this [place] [address] [facility] Care Teams Office Manager Executive Assistant Relationship Specialty Start Date End Date Sandro Avila MD [address] [facility] [address] [place] [address] PCP - General 11/14/21
--- OUTSIDE RECORDS SUMMARY | 2024-10-26 08:01 | XMS_ITS | Encounter Summary ---
Author Organization [facility] Address [address] [place] [address] Care Team Providers Care Intermodal Customer Service Name Role Phone Sandro Avila MD Unavailable [phone] Sandro Avila MD Primary Care Provider [phone] Encounter Details Date Type Department Care Team (Late Contact Info) Description 10/16/2022 Abstract [facility] [place] [facility] [address] [facility] 110 [place] [id number] Sandro Avila MD [address] [facility] 110 [place] [address] Social History Tobacco Use Types Packs/Day Years Used Date Smoking Tobacco: Never Smokeless Tobacco: Never Comments Unknown Sex and Gender Information Value Date Recorded Sex Assigned at Not on file Legal Sex Female 7:12 PM EDT Gender Identity Not on file Sexual Orientation Not on file documented as of this encounter Plan of Treatment Upcoming Encounters Date Type Department Care Team (Late st Contact Info) Description 10/31/2024 4:30 PM EDT Office Visit [facility] [place] [facility] [address] [place] [address] [place] [address] Sandro Avila MD [address] [place] [address] [place] [address] documented as of this encounter Visit Diagnoses Not on filedocumented in this encounter Care Teams Intermodal Customer Service Relationship Specialty Start Date End Date Sandro Avila MD [address] [place] [address] [place] [address] PCP - ACO Reach 07/17/22 Sandro Avila MD [address] [facility] [address] [place] [address] PCP - General Internal Medicine 07/01/22 documented as of this encounter
--- OUTSIDE RECORDS SUMMARY | 2024-10-26 08:01 | XMS_ITS | Encounter Summary ---
Author Organization [facility] Address [address] [place] [address] Care Team Providers Care Faceter Name Role Phone Sandro Avila MD Unavailable [phone] Sandro Avila MD Primary Care Provider [phone] Encounter Details Date Type Department Care Team (Late st Contact Info) Description 07/27/2024 Abstract [facility] [place] [facility] [address] [facility] 110 [place] [address] Sandro Avila MD 112 [facility] 110 [place] [address] Social History Tobacco Use Types [...] week 05/05/2024 How often do you attend sabianist or evangelical serv ices? Never 05/05/2024 Do you belong [...] Recorded Patient Health Questionnaire-2 Score 0 03/25/2024 [facility] of Occupat ional [facility] - Occupational Stress Questionnaire Answer Date Recorded [...] place to sleep or slept in a half-way (including now)? No 04/15/2023 Housing Stability Vital Sign Answer Jeffy e Recorded In the last 12 months, was t here a time when you were not able to pay the mortgage or rent on time? No 05/05/2024 In the past 12 months, how m any times have you moved where you were living? 0 05/05/2024 At any time in the past 12 m [facility], were you homeless or living in a half-way (including now)? No 05/05/2024 Comments Unknown Sex [...] Visit [facility] [place] [facility] [address] [facility] [address] [place] [address] Sandro Avila MD [address] [place] [address] [place] [address] documented as of this encounter Visit Diagnoses Not on filedocumented in this encounter Care Teams Faceter Relationship Specialty Start Date End Date Sandro Avila MD [address] [place] [address] [place] [address] PCP - ACO Reach 07/17/22 Sandro Avila MD [address] [place] [address] [place] [address] PCP - General Internal Medicine 07/01/22 documented as of this encounter
--- OUTSIDE RECORDS SUMMARY | 2024-10-26 08:01 | XMS_ITS | Encounter Summary ---
Author Organization [facility] Address [address] [facility] [place] [address] Care Team Providers Care Brooch Maker Novelty Name Role Phone Sandro Avila MD Unavailable [phone] Sandro Avila MD Primary Care Provider [phone] Encounter Details Date Type Department Care Team (Late st Contact Info) Description 09/22/2023 [facility] [place] [facility] [address] [facility] 110 [place] [address] Sandro Avila MD [address] [email or web address] 110 [place] [address] Social History Tobacco Use Types [...] often do you attend chur ch or pentecostalism services? 1 to 4 times per year [...] care, and heating? Not very hard 04/15/2023 [facility] [place] of Occupat ional Health - Occupational Stress [...] place to sleep or slept in a [place] health care facility (including now)? No 04/15/2023 Comments Unknown Sex [...] Visit [facility] [place] [facility] [address] [facility] 110 [place] [address] Sandro Avila MD [address] [email or web address] [address] [place] [address] documented as of this encounter Visit Diagnoses Not on filedocumented in this encounter Care Teams Brooch Maker Novelty Relationship Specialty Start Date End Date Sandro Avila MD [address] [facility] [[email or web address] [address] [place] [address] PCP - ACO Reach 07/17/22 Sandro Avila MD [address] [email or web address] 110 [place] [address] PCP - General Internal Medicine 07/01/22 documented as of this encounter
--- OUTSIDE RECORDS SUMMARY | 2024-10-26 08:01 | XMS_ITS | Encounter Summary ---
Author Organization [facility] Address [address] [place] [address] Care Team Providers Care Trimming Operator Name Role Phone Sandro Avila MD Unavailable [phone] Sandro Avila MD Primary Care Provider [phone] Encounter Details Date Type Department Care Team (Late st Contact Info) Description 10/13/2024 Abstract [facility] [place] [facility] [address] [facility] 110 [place] [address] Sandro Avila MD 112 [facility] 110 [place] [address] Social History Tobacco Use Types [...] week 05/05/2024 How often do you attend scientology or church serv ices? Never 05/05/2024 Do you belong to any clubs o r organizations such as scientology groups, unions, fraternal or athletic groups, or [...] Recorded Patient Health Questionnaire-2 Score 0 09/01/2024 [facility] of Occupat ional [facility] - Occupational Stress Questionnaire Answer Date Recorded [...] place to sleep or slept in a fci (including now)? No 04/15/2023 Housing Stability Vital Sign Answer Jeffy e Recorded In the last 12 months, was t here a time when you were not able to pay the mortgage or rent on time? No 05/05/2024 In the past 12 months, how m any times have you moved where you were living? 0 05/05/2024 At any time in the past 12 m [facility], were you homeless or living in a fci (including now)? No 05/05/2024 Comments Unknown Sex [...] Visit [facility] [place] [facility] [address] [facility] [address] [place] [address] Sandro Avila MD [address] [place] [address] [place] [address] documented as of this encounter Visit Diagnoses Not on filedocumented in this encounter Care Teams Trimming Operator Relationship Specialty Start Date End Date Sandro Avila MD [address] [facility] [address] [place] [address] PCP - ACO Reach 07/17/22 Sandro Avila MD [address] [facility] [address] [place] [address] PCP - General Internal Medicine 07/01/22 documented as of this encounter
--- OUTSIDE RECORDS SUMMARY | 2024-10-26 08:01 | XMS_ITS | Encounter Summary ---
Author Organization [facility] Address [address] [facility] [place] [address] Care Team Providers Care Hob Mill Operator Name Role Phone Sandro Avila MD Unavailable [phone] Sandro Avila MD Primary Care Provider [phone] Encounter Details Date Type Department Care Team (Late st Contact Info) Description 12/31/2023 [facility] [place] [facility] [address] [facility] 110 [place] [phone] Sandro Avila MD [address] [facility] 110 [place] [address] Social History Tobacco Use Types [...] often do you attend chur ch or anglican services? 1 to 4 times per year 04/15/2023 Do you belong to any clubs o r organizations such as samaritan groups, unions, fraternal or athletic groups, or [...] care, and heating? Not very hard 04/15/2023 [facility] [place] of Occupat ional Health - Occupational Stress [...] in a correction (including now)? No 04/15/2023 Comments Unknown Sex [...] Visit [facility] [place] [facility] [address] [facility] [address] [place] [address] Sandro Avila MD [address] [facility] 110 [place] [address] documented as of this encounter Visit Diagnoses Not on filedocumented in this encounter Care Teams Hob Mill Operator Relationship Specialty Start Date End Date Sandro Avila MD [address] [facility] 110 [place] [address] PCP - ACO Reach 07/17/22 Sandro Avila MD [address] [facility] 110 [place] [address] PCP - General Internal Medicine 07/01/22 documented as of this encounter
--- OUTSIDE RECORDS SUMMARY | 2024-10-26 08:01 | XMS_ITS | Encounter Summary ---
Author Organization [facility] Address [address] [facility] [place] [address] Care Team Providers Care Metalizing Supervisor Name Role Phone Sandro Avila MD Unavailable [phone] Sandro Avila MD Primary Care Provider [phone] Encounter Details Date Type Department Care Team (Late st Contact Info) Description 01/29/2024 Abstract [facility] [place] [facility] [address] [facility] 110 [place] [address] Sandro Avila MD [address] [facility] 110 [place] [address] Social History Tobacco Use Types [...] often do you attend chur ch or muslim services? 1 to 4 times per year 04/15/2023 Do you belong to any clubs o r organizations such as yazidi groups, unions, fraternal or athletic groups, or [...] heating? Not very hard 04/15/2023 [facility] [place] of Occupat ional Health - Occupational Stress [...] a care home (including now)? No 04/15/2023 Comments Unknown Sex [...] WAY [facility] [address] [place] [address] Sandro Avila MD [address] [facility] 110 [place] [address] documented as of this encounter Visit Diagnoses Not on filedocumented in this encounter Care Teams Metalizing Supervisor Relationship Specialty Start Date End Date Sandro Avila MD [address] [facility] 110 [place] [address] PCP - ACO Reach 07/17/22 Sandro Avila MD [address] [facility] 110 [place] [address] PCP - General Internal Medicine 07/01/22 documented as of this encounter
--- OUTSIDE RECORDS SUMMARY | 2024-10-26 08:01 | XMS_ITS | Encounter Summary ---
Author Organization [facility] Address [address] [place] [address] Care Team Providers Care Acid Cleaner Name Role Phone aSndro Avila MD Unavailable [phone] Sandro Avila MD Primary Care Provider [phone] Encounter Details Date Type Department Care Team (Late st Contact Info) Description 10/11/2024 Abstract [facility] [place] [facility] [place] [address] [facility] 110 [place] [address] Sandro Avila MD 112 [facility] 110 [place] [address] Social History Tobacco Use Types [...] week 05/05/2024 How often do you attend yarsani or advent serv ices? Never 05/05/2024 Do you belong to any clubs o r organizations such as yarsani groups, unions, fraternal or athletic groups, or [...] Recorded Patient Health Questionnaire-2 Score 0 09/01/2024 [facility] of Occupat ional [facility] - Occupational Stress Questionnaire Answer Date [...] place to sleep or slept in a nursing home (including now)? No 04/15/2023 Housing Stability [...] any time in the past 12 m [facility], were you homeless or living in a nursing home (including now)? No 05/05/2024 Comments Unknown [...] Visit [facility] [place] [facility] [address] [facility] [address] [place] [address] Sandro Avila MD [address] [facility] [address] [place] [address] documented as of this encounter Visit Diagnoses Not on filedocumented in this encounter Care Teams Acid Cleaner Relationship Specialty Start Date End Date Sandro Avila MD [address] [place] [address] [place] [address] PCP - ACO Reach 07/17/22 Sandro Avila MD [address] [place] [address] [place] [address] PCP - General Internal Medicine 07/01/22 documented as of this encounter
--- OUTSIDE RECORDS SUMMARY | 2024-10-26 08:01 | XMS_ITS | Encounter Summary ---
Author Organization [facility] Address [address] [facility] [place] [address] Care Team Providers Care Meat Trimmer Name Role Phone Sandro Avila MD Unavailable [phone] Sandro Avila MD Primary Care Provider [phone] Reason for Visit * Reason Comments Med Refill Encounter Details Date Type Department Care Team (Late st Contact Info) Description 01/02/2023 Refill [facility] [place] [facility] [address] [facility] 110 [place] [address] Sandro Avila MD [address] [facility] 110 [place], [place] [phone] Multinodular goiter Social History Tobacco Use Types Packs/Day Years [...] Visit [facility] [place] [facility] [address] [facility] 110 [place] [address] Sandro Avila MD [address] [facility] 110 [place], [place] [phone] documented as of this encounter Visit Diagnoses Diagnosis Multinodular goiter Nontoxic multinodular goiter documented in this encounter Care Teams Meat Trimmer Relationship Specialty Start Date End Date Sandro Avila MD 112 [facility] 110 [place] [address] PCP - ACO Reach 07/17/22 Sandro Avila MD [address] [address] PCP - General Internal Medicine 07/01/22 documented as of this encounter
--- OUTSIDE RECORDS SUMMARY | 2024-10-26 08:02 | XMS_ITS | Encounter Summary ---
Author Organization [facility] Address [address] [place] [address] Care Team Providers Care Reroller Hand Name Role Phone Sandro Avila MD Unavailable [phone] Sandro Avila MD Primary Care Provider [phone] Encounter Details Date Type Department Care Team (Late st Contact Info) Description 04/16/2023 Clinisync Result Encounter [facility] External Department Unsolicited Sandro Avila MD [address] [facility] 110 [place] [address] Social History Tobacco Use Types Packs/Day Years [...] often do you attend chur ch or zoroastrian services? 1 to 4 times per year 04/15/2023 Do you belong to any clubs o r organizations such as spiritism groups, unions, fraternal or athletic groups, or [...] you are drinking? Patient does not drink 4 Q3: How often do you have si x or more drinks on one occasion? Never 04/15/2023 Overall Financial Resource Strain (CARDIA) Answe r Date Recorded How hard is it for you to pa y for the very basics like food, housing, medical care, and heating? Not very hard 04/15/2023 [facility] [place] of Occupat ional Health - Occupational Stress [...] place to sleep or slept in a assisted (including now)? No 04/15/2023 Comments Unknown Sex [...] PM EDT Office [facility] 112 [facility] 110 [place] [address] Sandro Avila MD 112 [facility] 110 [place] [address] documented as of this encounter Procedures Procedure Name Priority Date/Time Associated Diagnosis Comments MM TOMOSYNTHESIS SCREENING BI 04/16/2023 7:59 AM EST documented in this encounter Results * MM TOMOSYNTHESIS SCREENING BI (04/16/2023 7:59 AM EST) Anatomical Region Laterality Modality Other 04/16/2023 7:59 AM EST Narrative 04/16/2023 8:00 [place] [address] Mammography Report Signed Patient: CAR VARGAS MR#: [id number] : 1955 Acct:[id number] Age/Sex: 68 / F ADM Date: 04/15/23 Loc: MAMMO Attending Dr: SANDRO AVILA Ordering Physician: SANDRO AVILA Results: Date of Service: 04/15/23 Follow Up: Procedure(s): MM tomosynthesis screening BI Accession Number(s): [id number] cc: SANDRO AVILA Patient Name: CAR VARGAS MR#: [id number] : 1955 Exam Date: 04/15/2023 Ordering Doctor: [...] ovarian cancer at age 56. LOCATION: [facility] BREAST COMPOSITION: Scattered areas fibroglandular density. FINDINGS: [...] Signed By: 04/16/23 0800 DD/ 0759 TD/TT: Commercial Pest Control Technician: Procedure Note Radiology, Radiologist, MD - 04/16/2023 [place] [address] Mammography Report Signed Patient: CAR VARGAS MMR#: [id number] : 1955cct:[id number] Age/Sex: 68 / FADM Date: 04/15/23 Loc: MAMMO Attending Dr: SANDRO AVILA Ordering Physician: Letty AVILAults: Date of Service: 04/15/23Follow Up: Procedure(s): MM tomosynthesis screening BI Accession Number(s): [id number] cc: SANDRO AVILA Patient Name: CAR VARGAS MR#: [id number] : 1955 Exam Date: 04/15/2023 Ordering Doctor: [...] ovarian cancer at age 56. LOCATION: [facility] BREAST COMPOSITION: Scattered areas fibroglandular density. FINDINGS: [...] M.D. Signed By:04/16/23 0800 DD/ 0759 TD/TT: Commercial Pest Control Technician: us Sandro Avila MD [facility] Final Result documented in this encounter Visit Diagnoses Not on filedocumented in this encounter Care Teams Reroller Hand Relationship Specialty Start Date End Date Sandro Avila MD 112 [facility] 110 [place] [address] PCP - ACO Reach 07/17/22 Sandro Avila MD 112 [facility] 110 [place] [address] PCP - General Internal Medicine 07/01/22 documented as of this encounter
--- OUTSIDE RECORDS SUMMARY | 2024-10-26 08:08 | XMS_ITS | CCD ---
Author Organization [facility] Care Team Providers Care Planning Division Superintendent Name Role Phone ADAMMANOJ Attending Unavailable VINNIE, DR GLEZ Primary Care [...] ., NARENDRANATH Attending Mary vailable LAKSHMIPATHY ., SARITHAENDRANATH Consulting Mary vailable VINNIE, DR GLEZ Primary Care Unavailable LAKSHMIPATHY ., NARENDRANATH Admitting Mary vailable LAKSHMIPATHY ., NARENDRANATH Attending Mary vailable LAKSHMIPATHY ., NARENDRANATH Consulting Mary vailable LAKSHMIPATHY ., NARENDRANATH Admitting Mary DR SANDRO Person Primary Care Unavailable LAKSHMIPATHY ., NARENDRANATH Attending Mary wendy Black MD, Andrius Toney Attending Unavailable Sofia CACERES, Andrius Toney Attending Unavailable Sofia CACERES, Leila Toney Attending Unavailable Sandro Avila MD Unavailable Sandro Avila MD Primary Care Provider SANDRO AVILA Attending Unavailable SANDRO AVILA Attending Unavailable SANDRO AVILA Attending Unavailable SANDRO AVILA Attending Unavailable SANDRO AVILA Attending Unavailable SANDRO AVILA Attending Unavailable Allergies Allergy Classification Reported Allergen(s) Allergy Type Date of Onset Reaction(s) Facility (20 sources) Codeine; Translations: [CODEINE] Drug Allergy 07-26-19 14 Unknown [facility] Repository (20 sources) Meperidine; Translations: [MEPERIDINE] Drug Allergy 11-15-19 22 Unknown [facility] Repository (1 source) Sulfonamides (Antibiotic); Translations: [SULFA (SULFONAMIDE ANTIBIOTICS)] Propensity to adverse reactions to drug (disorder) 11-15-19 22 [facility] Repository (1 source) Acetaminophen / HYDROcodone Drug Allergy 07-26-19 14 [facility] Repository (1 source) Dextroamphetamine Drug Allergy 07-26-19 14 [facility] Repository (1 source) Meperidine Drug Allergy 07-26-19 14 [facility] Repository (1 source) Omeprazole Drug Allergy 07-26-19 14 [facility] Repository (1 source) Pravastatin Drug Allergy 07-26-19 14 [facility] Repository (1 source) raNITIdine Drug Allergy 07-26-19 14 [facility] Repository (1 source) rofecoxib Drug Allergy 07-26-19 14 [facility] Repository (1 source) Sucralfate Drug Allergy 07-26-19 14 [facility] Repository (1 source) Sulfonamides (Antibiotic) Drug allergy (disorder) 07-26-19 14 [facility] Repository (1 source) Trimethoprim Drug Allergy 06-08-19 15 [facility] Repository (19 sources) atorvastatin Drug Allergy 10-17-19 Unknown [facility] Healthcare (19 sources) Omeprazole Drug Allergy 10-17-19 Unknown [facility] Healthcare (19 sources) Pravastatin Drug Allergy 10-17-19 Unknown [facility] Healthcare (19 sources) raNITIdine Drug Allergy 10-17-19 Unknown [facility] (19 sources) rofecoxib Drug Allergy 10-17-19 Other [facility] (19 sources) Sucralfate Drug Allergy 10-17-19 Unknown [facility] Healthcare (19 sources) Sulfamethoxazole Allergy to substance 10-17-19 Unknown [facility] Healthcare (19 sources) Sulfanilamide Allergy to substance 10-17-19 Unknown [facility] Healthcare (19 sources) Trimethoprim Drug Allergy 10-17-19 Unknown [facility] Healthcare (10 sources) Acetaminophen / HYDROcodone Drug Allergy 01-01-20 05 Hives [facility] Healthcare (10 sources) Meperidine Drug Allergy 03-25-19 [facility] Healthcare (10 sources) Rosuvastatin calcium Allergy to substance 03-25-19 [facility] Healthcare (10 sources) Mcnamara-2 Inhibitors (Sulfonamide) Drug Intolerance 11-14-19 04 [facility] Medications Current Medications Medication Drug Class(es) Dates Sig (Normalized) Sig (Original) acetaminophen 325 mg / HYDROcodone bitartrate 5 mg oral tablet (20 sources) Opioid Agonist Start: 03-25-2024 End: 08-04-2024 take 1 tablet by mouth every six hours for pain HYDROcodone-acetami nophen ([place]) 5-325 MG tablet Indications: Chronic left-sided lumbar radiculopathy Take 1 tablet by mouth every 6 (six) hours if needed for severe pain 30 tablet 08/04/2024 Active Start: 08-25-2023 End: 01-06-2024 take 1 tablet by mouth every six hours for pain HYDROcodone-acetaminophen ([place]) 5-325 MG tablet Indications: Chronic left-sided lumbar radiculopathy Take 1 tablet by mouth every 6 (six) hours if needed for severe pain 30 tablet 01/06/2024 Active albuterol 0.83 mg/ml inhalation solution (19 sources) beta2-Adrenergic Agonist albuter ol (2.5 MG/3ML) 0.083% nebulizer solution Take 2.5 mg by nebulization in the morning and 2.5 mg at noon and 2.5 mg in the evening and 2.5 mg before bedtime. Active 120 actuat albuterol 0.1 mg/actuat / ipratropium bromide 0.02 mg/actuat inhalation spray (20 sources) Anticholinergic, beta2-Adrenergic Agonist Start: 05-06-2024 ipratropium-albuterol (Combivent Respimat) 20-100 MCG/ACT inhaler Indications: Mild persistent reactive airway disease without complication (HCC) Inhale 1 puff in the morning and 1 puff at noon and 1 puff in the evening and 1 puff before bedtime. 12 g 3 05/06/2024 Active ipratropium-albu terol (Duo-Neb) 0.5-2.5 mg/3 mL nebulizer solution Active ipratropium-albu terol (Combivent Respimat) 20-100 MCG/ACT inhaler Active alendronic acid 70 mg oral tablet (19 sources) Bisphosphonate alendronate (Fos amax) 70 MG tablet Active cyclobenzaprine hydrochloride 10 mg oral tablet (20 sources) Muscle Relaxant Start: 05-07-19 25 take 1 tablet by mouth every eight hours for muscle spasms cyclobenzaprine (Flexeril) 10 MG tablet Indications: Sciatica of left side Take 1 tablet (10 mg) by mouth every 8 (eight) hours if needed for muscle spasms 360 tablet 3 05/06/2024 Active Start: 11-25-2023 End: 02-23-2024 take 1 tablet by mouth every eight hours for muscle spasms cyclobenzaprine (Flexeril) 10 MG tablet Indications: Sciatica of left side Take 1 tablet (10 mg) by mouth every 8 (eight) hours if needed for muscle spasms 90 tablet 2 11/25/2023 Active esomeprazole 40 mg delayed release oral capsule (19 sources) Proton Pump Inhibitor take 1 capsule by mouth before mealtime NexIUM [address] capsule Take 1 capsule by mouth in the morning. Take before meals. Active 60 actuat fluticasone propionate 0.1 mg/actuat / salmeterol 0.05 mg/actuat dry powder inhaler (20 sources) Corticosteroid, beta2-Adrenergic Agonist Start: 10-05-19 23 End: 11-25-19 24 take 1 puff(s) by mouth in the morning Fluticasone-Salmeterol (Wixela Inhub) 100-50 MCG/ACT aerosol powder Indications: Moderate persistent asthma without complication (HCC) Take 1 puff by mouth in the morning and 1 puff before bedtime. 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 TAKE 1 TABLET (60 MG) BY MOUTH IN THE MORNING 100 tablet 3 09/27/2024 Active Start: 09-03-2023 take 1 tablet by robin th every twenty-four hours in the morning isosorbide mononitrate ER (Imdur) 60 MG 24 hr tablet Indications: 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 TAKE 1 TABLET (60 MG) BY MOUTH IN THE MORNING 100 tablet 4 09/03/2023 Active levothyroxine sodium 0.05 mg oral tablet (19 sources) l-Thyroxine Start: 11-02-2023 take 2 tablets by mouth once daily in the morning levothyroxine (Synthroid, Levoxyl) 50 MCG tablet Indications: Multinodular goiter TAKE 2 TABLETS BY MOUTH ONCE EVERY MORNING ON AN EMPTY STOMACH 180 tablet 3 11/02/2023 Active meclizine hydrochloride 25 mg oral tablet (19 sources) Antiemetic meclizine (Antivert) 25 MG tablet Active montelukast 10 mg oral tablet (19 sources) Leukotriene Receptor Antagonist take 1 tablet by mouth at bedtime montelukast (Singulair) 10 MG tablet Take 10 mg by mouth at bedtime. Active nitroglycerin 0.4 mg/actuat mucosal spray (19 sources) Nitrate Vasodilator nitroglycerin (NitrolinguaL) 0.4 MG/SPRAY spray Place 1 spray under the tongue every 5 (five) minutes if needed for chest pain. Active ondansetron 4 mg oral tablet (19 sources) Serotonin-3 Receptor Antagonist Start: 08-15-2021 take 1 tablet by mouth every eight hours as needed ondansetron (Zofran) 4 MG tablet Take 4 mg by mouth every 8 (eight) hours if needed. 08/15/2021 Active predniSONE 20 mg oral tablet (3 sources) Start: 08-31-2023 End: 11-25-2023 predniSONE (Deltasone) 20 MG tablet Indications: Chronic left-sided lumbar radiculopathy TAKE 1 TABLET DAILY FOR 5 DAYS 5 tablet 08/31/2023 11/25/2023 Discontinued (Therapy completed) 12 hr ranolazine 500 mg extended release oral tablet (19 sources) Anti-anginal Start: 08-01-2024 take 1 tablet by mouth every twelve hours in the morning ranolazine (Ranexa) 500 MG 12 hr tablet Indications: Mild persistent reactive airway disease without complication (HCC) Take 1 tablet (500 mg) by mouth in the morning and 1 tablet (500 mg) before bedtime. 180 tablet 3 08/01/2024 Active take 1 tablet by robin th every twelve hours in the morning ranolazine (Ranexa) 500 MG 12 hr tablet Take 500 mg by mouth in the morning and 500 mg before bedtime. Active simvastatin 20 mg oral tablet (20 sources) HMG-CoA Reductase Inhibitor Start: 04-06-2023 End: 04-09-2024 take 1 tablet by mouth at bedtime simvastatin (Zocor) 20 MG tablet Indications: Pulmonary embolism with infarction (HCC) Take 1 tablet (20 mg) by mouth at bedtime 90 tablet 3 04/09/2024 Active traMADol hydrochloride 50 mg oral tablet (6 sources) Opioid Agonist Start: 10-10-2024 End: 10-25-2024 take 1 tablet by mouth every six hours for pain traMADol (Ultram) 50 MG tablet Indications: Chronic left-sided lumbar radiculopathy Take 1 tablet (50 mg) by mouth every 6 (six) hours if needed for severe pain for up to 15 days 60 tablet 10/10/2024 10/25/2024 Active Start: 07-19-2024 End: 08-04-2024 take 1 tablet by mouth every six hours for pain traMADol (Ultram) 50 MG tablet Indications: Chronic left-sided lumbar radiculopathy Take 1 tablet (50 mg) by mouth every 6 (six) hours if needed for severe pain for up to 15 days 60 tablet 07/19/2024 08/04/2024 Active Start: 06-10-2024 End: 06-25-2024 take 1 tablet by mouth every six hours for pain traMADol (Ultram) 50 MG tablet Indications: Chronic left-sided lumbar radiculopathy Take 1 tablet (50 mg) by mouth every 6 (six) hours if needed for severe pain for up to 15 days 60 tablet 06/10/2024 06/25/2024 Active Start: 04-21-2024 End: 05-06-2024 take 1 tablet by mouth every six hours for pain traMADol (Ultram) 50 MG tablet Indications: Chronic left-sided lumbar radiculopathy Take 1 tablet (50 mg) by mouth every 6 (six) hours if needed for severe pain for up to 15 days 60 tablet 04/21/2024 05/06/2024 Active Start: 03-01-2024 End: 03-16-2024 take 1 tablet by mouth every six hours for pain traMADol (Ultram) 50 MG tablet Indications: Chronic left-sided lumbar radiculopathy Take 1 tablet (50 mg) by mouth every 6 (six) hours if needed for severe pain for up to 15 days 60 tablet 03/01/2024 03/16/2024 Active warfarin sodium 7.5 mg oral tablet (20 sources) Vitamin K Antagonist Start: 09-27-2024 take 1 tablet by mouth once daily warfarin (Coumadin) 7.5 MG tablet Indications: Hypercoagulable state (HHS-HCC) , Pulmonary embolism with infarction (HCC) TAKE 1 TABLET BY MOUTH EVERY DAY 100 tablet 3 09/27/2024 Active Start: 03-28-2024 warfarin (Coum jerilyn) 5 MG tablet Indications: Hypercoagulable state (HHS-HCC) TAKE DIRECTED PER AFTER VISIT SUMMARY. 90 tablet 3 03/28/2024 Active Start: 09-03-2023 take 1 tablet by robin th once daily warfarin (Coumadin) 7.5 MG tablet Indications: Hypercoagulable state (HHS-HCC) , Pulmonary embolism with infarction (HCC) TAKE 1 TABLET BY MOUTH EVERY DAY 100 tablet 4 09/03/2023 Active Start: 05-14-2023 End: 05-13-2024 warfarin (Coumadin) 5 MG tab let Indications: Hypercoagulable state (CMS/HCC) Take as directed per After Visit Summary. 30 tablet 11 05/14/2023 05/13/2024 Active zolpidem tartrate 10 mg oral tablet (20 sources) gamma-Aminobutyric Acid-ergic Agonist Start: 10-10-2024 zolpidem (Ambien) 10 MG tablet Indications: Primary insomnia Take 1 tablet (10 mg) by mouth as needed at bedtime for sleep 90 tablet 1 10/10/2024 Active Start: 07-31-2023 End: 10-17-2024 zolpidem (Ambien) 10 MG tabl et Indications: Primary insomnia Take 1 tablet (10 mg) by mouth as needed at bedtime for sleep 90 tablet 07/19/2024 10/10/2024 Discontinued Completed/Discontinued Medications Medication Drug Class(es) Dates Sig (Normalized) Sig (Original) gabapentin 300 mg oral capsule (6 sources) Anti-epileptic Agent Start: 04-17-2022 End: 01-06-2024 take 1 capsule by mouth in the morning gabapentin (Neurontin) 300 MG capsule Take 300 mg by mouth in the morning and 300 mg before bedtime. 04/17/2022 01/06/2024 Discontinued pregabalin 75 mg oral capsule (6 sources) End: 01-06-2024 take 1 capsule by mouth in the morning pregabalin (Lyrica) 75 MG capsule Take 75 mg by mouth in the morning and 75 mg before bedtime. 01/06/2024 Discontinued Problems Active Problems Problem Classification Problem Date Documented Date Episodic/Chronic Asthma (20 sources) Moderate asthma; Translations: [Unspecified asthma, uncomplicated] Onset: 3 07-22-2022 Chronic Cardiac dysrhythmias (20 sources) Postural orthostatic tachycardia syndrome ; Translations: [POTS (postural orthostatic tachycardia syndrome)] Onset: 3 07-22-2022 Chronic Cataract (19 sources) Bilateral pseudophakia; Translations: [Presence of intraocular lens] Onset: 3 07-22-2022 Chronic Chronic kidney disease (20 sources) Chronic kidney disease stage 3A ; Translations: [Stage 3a chronic kidney disease (HCC)] Onset: 3 07-22-2022 Chronic Coagulation and hemorrhagic disorders (20 sources) Hypercoagulability state; Translations: [Other primary thrombophilia] Onset: 3 07-22-2022 Chronic Coronary atherosclerosis and other heart disease (20 sources) Coronary atherosclerosis; Translations: [Atherosclerotic heart disease of [place] coronary artery with angina pectoris with documented spasm] Onset: 3 07-22-2022 Chronic Disorders of lipid metabolism (19 sources) Pure hypercholesterolemia; Translations: [Pure hypercholesterolemia, unspecified] Onset: 3 07-22-2022 Chronic Esophageal disorders (19 sources) Gastroesophageal reflux disease without esophagitis; Translations: [Gastro-esophageal reflux disease without esophagitis] Onset: 3 07-22-2022 Chronic Headache; including migraine (19 sources) Migraine with aura; Translations: [Migraine with aura, not intractable, without status migrainosus] Onset: 3 07-22-2022 Chronic Immunizations and screening for infectious disease (2 sources) Needs influenza immunization; Translations: [Encounter for immunization] 01-06-2024 Episodic Menopausal disorders (20 sources) Other primary ovarian failure; Translations: [Decreased estrogen level] Onset: 3 01-21-2023 Chronic Miscellaneous mental health disorders (20 sources) Primary insomnia; Translations: [Primary insomnia] Onset: 3 07-22-2022 Chronic Osteoarthritis (20 sources) Osteoarthritis of finger joint; Translations: [Primary osteoarthritis, unspecified hand] Onset: 3 07-22-2022 Chronic Other connective tissue disease (4 sources) Pain in left lower leg; Translations: [PAIN IN LEFT LOWER LEG] Onset: 3 Episodic Other endocrine disorders (19 sources) Hypoglycemia; Translations: [Hypoglycemia, unspecified] Onset: 3 07-22-2022 Chronic Other eye disorders (19 sources) Vitreous degeneration; Translations: [Vitreous degeneration, unspecified eye] Onset: 3 07-22-2022 Chronic Other eye disorders (19 sources) Vitreous opacities; Translations: [Other vitreous opacities, unspecified eye] Onset: 3 07-22-2022 Chronic Other nervous system disorders (1 source) Other chronic pain; Translations: [OTHER CHRONIC PAIN] Onset: 3 Chronic Other nervous system disorders (2 sources) Numbness; Translations: [Numbness] Onset: 2 Episodic Other non-traumatic joint disorders (1 source) Pain in left hip; Translations: [PAIN IN LEFT HIP] Onset: 3 Episodic Other screening for suspected conditions (not mental disorders or infectious disease) (3 sources) Encounter for screening mammogram for malignant neoplasm of breast; Translations: [Patient encounter status] Onset: 3 01-06-2024 Episodic Other upper respiratory disease (19 sources) Allergic rhinitis; Translations: [Other allergic rhinitis] Onset: 3 07-22-2022 Chronic Other upper respiratory infections (19 sources) Chronic sinusitis; Translations: [Chronic sinusitis, unspecified] Onset: 3 07-22-2022 Chronic Residual codes; unclassified (19 sources) Hypoxia; Translations: [Idiopathic sleep related nonobstructive alveolar hypoventilation] Onset: 3 07-22-2022 Chronic Retinal detachments; defects; vascular occlusion; and retinopathy (19 sources) Epiretinal membrane; Translations: [Puckering of macula, unspecified eye] Onset: 3 07-22-2022 Chronic Spondylosis; intervertebral disc disorders; other back problems (20 sources) Other intervertebral disc displacement, lumbar region; Translations: [Other intervertebral disc degeneration, lumbar region] Onset: 3 07-22-2022 Chronic Spondylosis; intervertebral disc disorders; other back problems (20 sources) Radiculopathy, lumbar region; Translations: [Sciatica] Onset: 3 Episodic Thyroid disorders (20 sources) Multinodular goiter; Translations: [Nontoxic multinodular goiter] Onset: 3 07-22-2022 Chronic Unclassified (2 sources) LOW BACK PAIN, UNSPECIFIED; Translations: [LOW BACK PAIN, UNSPECIFIED] Onset: 3 Past or Other Problems Problem Classification Problem Date Documented Da te Episodic/Chronic Biliary tract disease (20 sources) Calculus of gallbladder without cholecystitis without obstruction; Translations: [Cholelithiasis without obstruction] Onset: 08-22-2021 07-22-2022 Episodic Nausea and vomiting (4 sources) Nausea; Translations: [NAUSEA] Onset: 08-19-2021 Episodic Other bone disease and musculoskeletal deformities (1 source) Other specified disorders of bone density and structure, unspecified site; Translations: [OTH D/O BONE DEN STRUCT UNS SITE] Onset: 03-14-2022 Episodic Other bone disease and musculoskeletal deformities (19 sources) Osteopenia; Translations: [Other specified disorders of bone density and structure, unspecified site] Onset: 07-22-2022 07-22-2022 Episodic Other circulatory disease (19 sources) Orthostatic hypotension; Translations: [Orthostatic hypotension] Onset: 07-22-2022 07-22-2022 Episodic Other nutritional; endocrine; and metabolic disorders (19 sources) Body mass index 25-29 - overweight; Translations: [Overweight] Onset: 07-22-2022 07-22-2022 Episodic Pulmonary heart disease (20 sources) Infarction of lung due to embolus; Translations: [Other pulmonary embolism without acute cor pulmonale] Onset: 07-22-2022 07-22-2022 Episodic Residual codes; unclassified (1 source) Family [...] Results Test Name Value Interpretation Reference Range Facility Laboratory - Cytologyon 08-23 Microscopic observation Cyto stain Nom (Cvx) 3.1 [facility] Concept Inbox No Panel Informationon 09-01 [facility] Laboratory - Cytologyon 07-24 Microscopic observation Cyto stain Nom (Cvx) 2.9 [facility] Inbox No [facility]PLT[facility] Basophils (Bld) [#/Vol] 0.071 10*3/uL Normal 0-200 [facility] Comment on above: Performed By: #### 7 600, 6399, [id number] #### [facility] of [address], [address] [place] [address] Senior Sql Database Developer: Mirza Mcdonnell MD Basophils/100 WBC (Bld) 1.4 % Normal [facility] Comment on above: Performed By: #### 7 600, 6399, [id number] #### [facility] of [address], [address] [place] [address] Senior Sql Database Developer: Mirza Mcdonnell MD Eosinophils (Bld) [#/Vol] 0.128 10*3/uL Normal 15-500 [facility] Comment on above: Performed By: #### 7 600, 6399, [id number] #### [facility] of [address], [address] [place] [address] Senior Sql Database Developer: Mirza Mcdonnell MD Eosinophils/100 WBC (Bld) 2.5 % Normal [facility] Comment on above: Performed By: #### 7 600, 63, [id number] #### [facility] of [address], [address] [place] [address] Senior Sql Database Developer: Mirza Mcdonnell MD Erythrocyte distribution width (RBC) [Ratio] 12.9 % Normal 11.0-15.0 [facility] Comment on above: Performed By: #### 7 600, 6399, [id number] #### [facility] of [address], [address] [place] [address] Senior Sql Database Developer: Mirza Mcdonnell MD Hematocrit (Bld) [Volume fraction] 39.5 % Normal 35.0-45.0 [facility] Comment on above: Performed By: #### 7 600, 6399, [id number] #### [facility] of [place] [address] Senior Sql Database Developer: Mirza Mcdonnell MD Hemoglobin (Bld) [Mass/Vol] 12.8 g/dL Normal 11.7-15.5 [facility] Comment on above: Performed By: #### 7 600, 6399, [id number] #### [facility] of [address], [address] [place] [address] Senior Sql Database Developer: Mirza Mcdonnell MD Lymphocytes (Bld) [#/Vol] 2.402 10*3/uL Normal 850-3900 [facility] Comment on above: Performed By: #### 7 600, 6399, [id number] #### [facility] [place] [address] Senior Sql Database Developer: Mirza Mcdonnell MD Lymphocytes/100 WBC (Bld) 47.1 % Normal [facility] Comment on above: Performed By: #### 7 600, 63, [id number] #### [facility] of [place] [address] Senior Sql Database Developer: Mirza Mcdonnell MD MCH (RBC) [Entitic mass] 30.5 pg Normal 27.0-33.0 [facility] Comment on above: Performed By: #### 7 600, 63, [id number] #### [facility] of [place] [address] Senior Sql Database Developer: Mirza Mcdonnell MD MCHC (RBC) [Mass/Vol] 32.4 g/dL Normal 32.0-36.0 [facility] Comment on above: Result Comment: For adults, a slight decrease in the calculated MCHC value (in the range of 30 to 32 g/dL) is most likely not clinically significant; however, it should be interpreted with caution in correlation with other red cell parameters and the patient's clinical condition. Performed By: #### 7 600, 63, [id number] #### [facility] of [place] [address] Senior Sql Database Developer: Mirza Mcdonnell MD MCV (RBC) [Entitic vol] 94.3 fL Normal 80.0-100.0 [facility] Comment on above: Performed By: #### 7 600, 6399, 12504 #### [facility] of [place] [address] Senior Sql Database Developer: Mirza Mcdonnell MD Monocytes (Bld) [#/Vol] 0.418 10*3/uL Normal 200-950 [facility] Comment on above: Performed By: #### 7 600, 6399, 35660 #### [facility] of [address], [address] [place] [address] Senior Sql Database Developer: Mirza Mcdonnell MD Monocytes/100 WBC (Bld) 8.2 % Normal [facility] Comment on above: Performed By: #### 7 600, 6399, [id number] #### [facility] of [place] [address] Senior Sql Database Developer: Mirza Mcdonnell MD Neutrophils (Bld) [#/Vol] 2.081 10*3/uL Normal 1368-5754 [facility] Comment on above: Performed By: #### 7 600, 6399, 37122 #### [facility] of [place] [address] Senior Sql Database Developer: Mirza Mcdonnell MD Neutrophils/100 WBC (Bld) 40.8 % Normal [facility] Comment on above: Performed By: #### 7 600, 6399, 35745 #### [facility] of [place] [address] Senior Sql Database Developer: Mirza Mcdonnell MD Platelet mean volume (Bld) [Entitic vol] 10.5 fL Normal 7.5-12.5 [facility] Comment on above: Performed By: #### 7 600, 6399, [id number] #### [facility] [place] [address] Senior Sql Database Developer: Mirza Mcdonnell MD Platelets (Bld) [#/Vol] 352 10*3/uL Normal 140-400 [facility] Comment on above: Performed By: #### 7 600, 6399, 17487 #### [facility] [place] [address] Senior Sql Database Developer: Mirza Mcdonnell MD RBC (Bld) [#/Vol] 4.19 10*6/uL Normal 3.80-5.10 [facility] Comment on above: Performed By: #### 7 600, 6399, 49428 #### [facility] of [address], [address] [place] [address] Senior Sql Database Developer: Mirza Mcdonnell MD WBC (Bld) [#/Vol] 5.1 10*3/uL Normal 3.8-10.8 [facility] Comment on above: Performed By: #### 7 600, 6399, 53312 #### [facility] of [address], [address] [place] [address] Senior Sql Database Developer: Mirza Mcdonnell MD [facility] METABOLIC PANE [facility] 01-07-2024 Albumin [Mass/Vol] 4.2 g/dL Normal 3.6-5.1 [facility] Comment on above: Performed By: #### 7 600, 6399, 50759 #### [facility] [place] [address] Senior Sql Database Developer: Mirza Mcdonnell MD Albumin/Globulin [Mass ratio] 1.7 {ratio} Normal 1.0-2.5 [facility] Comment on above: Performed By: #### 7 600, 6399, 06564 #### [facility] [place] [address] Senior Sql Database Developer: Mirza Mcdonnell MD ALP [Catalytic activity/Vol] 48 U/L Normal 37-153 [facility] Comment on above: Performed By: #### 7 600, 6399, 60358 #### [facility] [place] [address] Senior Sql Database Developer: Mirza Mcdonnell MD ALT [Catalytic activity/Vol] 12 U/L Normal 6-29 [facility] Comment on above: Performed By: #### 7 600, 6399, 92838 #### [facility] [place] [address] Senior Sql Database Developer: Mirza Mcdonnell MD AST [Catalytic activity/Vol] 15 U/L Normal 10-35 [facility] Comment on above: Performed By: #### 7 600, 6399, 75239 #### [facility] [place] [address] Senior Sql Database Developer: Mirza Mcdonnell MD Bilirubin [Mass/Vol] 0.7 mg/dL Normal 0.2-1.2 [facility] Comment on above: Performed By: #### 7 600, 6399, 58544 #### [facility] [place] [address] Senior Sql Database Developer: Mirza Mcdonnell MD Calcium [Mass/Vol] 9.3 mg/dL Normal 8.6-10.4 [facility] Comment on above: Performed By: #### 7 600, 6399, 37733 #### [facility] [place] [address] Senior Sql Database Developer: Mirza Mcdonnell MD Chloride [Moles/Vol] 107 mmol/L Normal 98-110 [facility] Comment on above: Performed By: #### 7 600, 6399, 19285 #### [facility] [place] [address] Senior Sql Database Developer: Mirza Mcdonnell MD CO2 [Moles/Vol] 26 mmol/L Normal 20-32 [facility] Comment on above: Performed By: #### 7 600, 63, 78464 #### [facility] [place] [address] Senior Sql Database Developer: Mirza Mcdonnell MD Creatinine [Mass/Vol] 1.15 mg/dL High 0.60-1.00 [facility] Comment on above: Performed By: #### 7 600, 6399, 01040 #### [facility] [place] [address] Senior Sql Database Developer: Mirza Mcdonnell MD GFR/1.73 sq M.predicted among non-blacks MDRD (S/P/Bld) [Vol rate/Area] 51 mL/min/{1.73_m2} Low > OR = 60 [facility] Comment on above: Performed By: #### 7 600, 6399, 52494 #### [facility] [place] [address] Senior Sql Database Developer: Mirza Mcdonnell MD Globulin (S) [Mass/Vol] 2.5 g/dL Normal 1.9-3.7 [facility] Comment on above: Performed By: #### 7 600, 6399, 56059 #### [facility] [place] [address] Senior Sql Database Developer: Mirza Mcdonnell MD Glucose [Mass/Vol] 90 mg/dL Normal 65-99 [facility] Comment on above: Result Comment: Fasting reference interval Performed By: #### 7 600, 6399, 90640 #### [facility] [place] [address] Senior Sql Database Developer: Mirza Mcdonnell MD Potassium [Moles/Vol] 4.3 mmol/L Normal 3.5-5.3 [facility] Comment on above: Performed By: #### 7 600, 63, 97195 #### [facility] [place] [address] Senior Sql Database Developer: Mirza Mcdonnell MD Protein [Mass/Vol] 6.7 g/dL Normal 6.1-8.1 [facility] Comment on above: Performed By: #### 7 600, 6399, 16697 #### [facility] [place] [address] Senior Sql Database Developer: Mirza Mcdonnell MD Sodium [Moles/Vol] 141 mmol/L Normal 135-146 [facility] Comment on above: Performed By: #### 7 600, 6399, 38883 #### [facility] [place] [address] Senior Sql Database Developer: Mirza Mcdonnell MD Urea nitrogen [Mass/Vol] 17 mg/dL Normal 7-25 [facility] Comment on above: Performed By: #### 7 600, 6399, 81923 #### [facility] [place] [address] Senior Sql Database Developer: Mirza Mcdonnell MD Urea nitrogen/Creatinine [Mass ratio] 15 mg/mg Normal 6-22 [facility] Comment on above: Performed By: #### 7 600, 6399, 52274 #### [facility] [address], [address] [place] [address] Senior Sql Database Developer: Mirza Mcdonnell MD LIPID PANEL, [facility] 12-24 Cholesterol [Mass/Vol] 158 mg/dL Normal <200 [facility] Comment on above: Order Comment: FASTI NG:YES FASTING: YES Performed By: #### 7 600, 6399, 45177 #### [facility] [address], [address] [place] [address] Senior Sql Database Developer: Mirza Mcdonnell MD Cholesterol in HDL [Mass/Vol] 62 mg/dL Normal > OR = 50 [facility] Comment on above: Order Comment: FASTI NG:YES FASTING: YES Performed By: #### 7 600, 6399, 86891 #### [facility] [address], [address] [place] [address] Senior Sql Database Developer: Mirza Mcdonnell MD Cholesterol in LDL [Mass/Vol] 75 mg/dL Normal [facility] Comment on above: Order Comment: FASTI NG:YES FASTING: YES Result Comment: Refe rence range: <100 Desirable range <100 mg/dL for primary prevention; <70 mg/dL for patients with CHD or diabetic patients with > or = 2 CHD risk factors. LDL-C is now calculated using the Bob-Jeny calculation, which is a validated novel method providing better accuracy than the Friedewald equation in the estimation of LDL-C. Bob RIVERS et al. COLIN. 2013;310(19): 1193-8120 (http://education.Wello.Neoconix/faq/HCH814) Performed By: #### 7 600, 6399, 55044 #### [facility] [address], [address] [place] [address] Senior Sql Database Developer: Mirza Mcdonnell MD Cholesterol.total/C holesterol in HDL [Mass ratio] 2.5 {ratio} Normal <5.0 [facility] Comment on above: Order Comment: FASTI NG:YES FASTING: YES Performed By: #### 7 600, 6399, 22518 #### [facility] [address], [address] [place], [place] [address] Senior Sql Database Developer: Mirza Mcdonnell MD NON HDL CHOLESTEROL 96 mg/dL (calc) Normal <130 [facility] Comment on above: Order Comment: FASTI NG:YES FASTING: YES Result Comment: For patients with diabetes plus 1 major ASCVD risk factor, treating to a non-HDL-C goal of <100 mg/dL (LDL-C of <70 mg/dL) is considered a therapeutic option. Performed By: #### 7 600, 6399, 61183 #### [facility] [place] [address] Senior Sql Database Developer: Mirza Mdconnell MD Triglyceride [Mass/Vol] 129 mg/dL Normal <150 [facility] Comment on above: Order Comment: FASTI NG:YES FASTING: YES Performed By: #### 7 600, 6399, 81275 #### [facility] [place] [address] Senior Sql Database Developer: Mirza Mcdonnell MD TSH W/REFLEX TO FT4on 2023 TSH W/REFLEX TO FT4 0.60 mIU/L Normal 0.40-4.50 [facility] Comment on above: Performed By: #### 7 600, 6399, 03958 #### [facility] [place] [address] Senior Sql Database Developer: Mirza Mcdonnell MD Laboratory - Cytologyon - Microscopic observation Cyto stain Nom (Cvx) 3.3 [facility] Panel Informationon 01-05 [facility] Laboratory - Cytologyon Microscopic observation Cyto stain Nom (Cvx) 4.0 [employer] No Panel Informationon 11-24 [facility] MRI LSPINE WO CONon 04-22-19 MRI LSPINE [...] by: KIERAN NESS Date: 2022-04-22 16:55 Normal [facility] MAMM SCREEN 3D JALIL CADon 03-07-2022 MG MAMM SCREEN 3D JALIL CAD Patient: KRISTINA VARGAS Exam Date: 03/07/2022 : 1955 Gender:F Ordering : DR SANDRO AVILA M.D. Admission #: [id number] Family : Order #: [id number] CLICK HERE TO VIEW EXAM RADIOLOGY REPORT [...] cancer at age 56. LOCATION: [facility] BREAST COMPOSITION: Scattered areas fibroglandular density. [...] [place] M.D. on 03/07/2022 at 13:43 Normal [facility] XR DEXA BONE DENSITYon 03-07 [...] by: ADDY [place] Date: 2022-03-07 16:12 Normal [facility] XR LSPINE MIN 4 VIEWSon 02-23 XR [...] by: ADDY [place] Date: 2022-03-07 16:26 Normal [facility] Orders Onlyon 11-29-2021 Orders Only [id number] Rachel Vargas n 1955 F Date Provider Department Center 11/29/2021 [id number] SIM MP ORTHO MPORTHO No family history on file Normal [facility] Office Visiton 11-14-2021 Follow-up visit [id number] Rachel Vargas n 1955 F Date Provider Department Center 11/14/2021 373-MANOJ MEDINA MP ORTHO MPORTHO No family history on file Level of Service:[id number] [place] OFFICE/OUTPATIENT NEW LOW [facility] 30-44 MINUTES Reason for Visit and Comments: Numbness [75] - Lump - noticed 2 weeks ago with thumb tingling Normal [facility] US SINGLE QUAD RT UPPERon US [...] by: KIERAN NESS Date: 2021-08-19 16:13 Normal [facility] Vital Signs Date Time Vital Sign Value Performing Clinician Michael meeky 09-01-2024 11:27-0400 Body height 161.3 cm Sandro Avila MD Work Phone: [facility] 09-01-2024 11:27-0400 Body mass index (BMI) [Ratio] 29.64 kg/m2 Sandro Avila MD Work Phone: [facility] 09-01-2024 11:27-0400 Body weight 77.11 kg Sandro Avila MD Work Phone: [facility] 09-01-2024 11:27-0400 Diastolic blood pressure 70 mm[Hg] Sandro Avila MD Work Phone: [facility] 09-01-2024 11:27-0400 Heart rate 86 /min Sandro Avila MD Work Phone: [facility] 09-01-2024 11:27-0400 SaO2% (BldA) [Mass fraction] 95 % Sandro Avila MD Work Phone: [facility] 09-01-2024 11:27-0400 Systolic blood pressure 124 mm[Hg] Sandro Avila MD Work Phone: [facility] 08-04-2024 10:41-0400 Body height 161.3 cm Sandro Avila MD Work Phone: [facility] 08-04-2024 10:41-0400 Body mass index (BMI) [Ratio] 29.47 kg/m2 Sandro Avila MD Work Phone: [facility] 08-04-2024 10:41-0400 Body weight 76.66 kg Sandro Avila MD Work Phone: [facility] 08-04-2024 10:41-0400 Diastolic blood pressure 76 mm[Hg] Sandro Avila MD Work Phone: [facility] 08-04-2024 10:41-0400 Heart rate 78 /min Sandro Avila MD Work Phone: [facility] 08-04-2024 10:41-0400 SaO2% (BldA) [Mass fraction] 95 % Sandro Avila MD Work Phone: [facility] 08-04-2024 10:41-0400 Systolic blood pressure 122 mm[Hg] Sandro Avila MD Work Phone: [facility] 01-06-2024 10:48-0500 Body height 161.3 cm Sandro Avila MD Work Phone: [facility] 01-06-2024 10:48-0500 Body mass index (BMI) [Ratio] 28.94 kg/m2 Sandro Avila MD Work Phone: [facility] 01-06-2024 10:48-0500 Body weight 75.3 kg Sandro Avila MD Work Phone: [facility] 01-06-2024 10:48-0500 Diastolic blood pressure 70 mm[Hg] Sandro Avila MD Work Phone: [facility] 01-06-2024 10:48-0500 Heart rate 92 /min Sandro Avila MD Work Phone: [facility] 01-06-2024 10:48-0500 SaO2% (BldA) [Mass fraction] 97 % Sandro Avila MD Work Phone: [facility] 01-06-2024 10:48-0500 Systolic blood pressure 122 mm[Hg] Sandro Avila MD Work Phone: [facility] 11-25-2023 11:37-0400 Body height 161.3 cm Sandro Avila MD Work Phone: [facility] 11-25-2023 11:37-0400 Body mass index (BMI) [Ratio] 29.47 kg/m2 Sandro Avila MD Work Phone: [facility] 11-25-2023 11:37-0400 Body weight 76.66 kg Sandro Avila MD Work Phone: [facility] 11-25-2023 11:37-0400 Diastolic blood pressure 66 mm[Hg] Sandro Avila MD Work Phone: [facility] 11-25-2023 11:37-0400 Heart rate 81 /min Sandro Avila MD Work Phone: [facility] 11-25-2023 11:37-0400 SaO2% (BldA) [Mass fraction] 94 % Sandro Avila MD Work Phone: [facility] 11-25-2023 11:37-0400 Systolic blood pressure 108 mm[Hg] Sandro Avila MD Work Phone: [facility] Encounters Encounter Date Encounter Type Care Provider Facility Start: 10-09-2024 End: 10-10-2024 Ankita SCHROEDER Work Phone: [facility] Comment on above: Primary insomnia; Chronic left-sided lumbar radiculopathy Start: 09-01-2024 End: 09-01-2024 Bamboo flowsheet Sandro Avila MD Work Phone: [facility] Start: 09-01-2024 End: 09-01-2024 Bamboo flowsheet Sandro Avila MD Work Phone: [facility] Start: 09-01-2024 End: 09-01-2024 Office outpatient visit 25 minutes Sandro Avila MD Work Phone: [facility] Comment on above: Moderate persistent asthma without complication (HCC) (Primary Dx); Pulmonary embolism with infarction (HCC); Chronic kidney disease, stage 3a (CMS-HCC) Start: 09-01-2024 End: 09-01-2024 ambulatory SANDRO AVILA Not Available Start: 08-04-2024 End: 08-04-2024 Bamboo flowsheet Sandro Avila MD Work Phone: [facility] Start: 08-04-2024 End: 08-04-2024 Bamboo flowsheet Sandro Avila MD Work Phone: [facility] Start: 08-04-2024 End: 08-04-2024 Office outpatient visit 25 minutes Sandro Avila MD Work Phone: [facility] Comment on above: Pulmonary embolism w ith infarction (HCC) (Primary Dx); Chronic left-sided lumbar radiculopathy; Moderate persistent asthma without complication (HCC) Start: 08-04-2024 End: 08-04-2024 ambulatory SANDRO AVILA Not Available Start: 06-09-2024 End: 06-10-2024 Ankita SCHROEDER Work Phone: [facility] Comment on above: Chronic left-sided l umbar radiculopathy Start: 05-06-2024 End: 05-06-2024 ambulatory SANDRO AVILA Not Available Start: 04-21-2024 End: 04-21-2024 Refill Sandra Romero PA Work Phone: [facility] Comment on above: Chronic left-sided l umbar radiculopathy Start: 04-09-2024 End: 04-09-2024 Refjazmín Avila MD Work Phone: [facility] Comment on above: Pulmonary embolism w ith infarction (CMS/HCC) Start: 03-25-2024 End: 03-25-2024 Bamboo flowsallan Avila MD Work Phone: [facility] Start: 03-25-2024 End: 03-25-2024 Bamboo flowsheet Sandro Avila MD Work Phone: [facility] Start: 03-25-2024 End: 03-25-2024 ambulatory SANDRO AVILA Not Available Start: 02-26-2024 End: 03-01-2024 Refjazmín Avila MD Work Phone: [facility] Comment on above: Chronic left-sided l umbar radiculopathy Start: 01-26-2024 End: 01-26-2024 Refill Sandra Romero PA Work Phone: [facility] Comment on above: Primary insomnia Start: 01-06-2024 End: 01-06-2024 Bamboo flowsallan Avila MD Work Phone: [facility] Start: 01-06-2024 End: 01-06-2024 Bamboo flowsallan Avila MD Work Phone: [facility] Start: 01-06-2024 End: 01-06-2024 Office outpatient visit 25 minutes Sandro Avila MD Work Phone: [facility] Comment on above: Hypercoagulable stat e (CMS/HCC) (Primary Dx); Pulmonary embolism with infarction (CMS/HCC); Flu vaccine need; Encounter for screening for malignant neoplasm of colon; Chronic left-sided lumbar radiculopathy Start: 01-06-2024 End: 01-06-2024 ambulatory SANDRO AVILA Not Available Start: 11-25-2023 End: 11-25-2023 Bamboo flowsheet Sandro Avila MD Work Phone: [facility] Start: 11-25-2023 End: 11-25-2023 BamBroken Envelope Productionso flowsheet Sandro Avila MD Work Phone: [facility] Start: 11-25-2023 End: 11-25-2023 Office outpatient visit 25 minutes Sandro Avila MD Work Phone: [facility] Comment on above: Hypercoagulable stat e (CMS/HCC) (Primary Dx); Pulmonary embolism with infarction (CMS/HCC); POTS (postural orthostatic tachycardia syndrome); 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 (CMS/HCC); Stage 3a chronic kidney disease (HCC) (CMS/HCC); Multinodular goiter (CMS/HCC); Chronic left-sided lumbar radiculopathy; Moderate persistent asthma without complication (CMS/HCC); Sciatica of left side Start: 11-25-2023 End: 11-25-2023 ambulatory SANDRO AVILA Not Available Start: 05-25-2023 End: 05-26-2023 ambulatory Leila Black MD Facility: [facility] Start: 05-11-2023 End: 05-12-2023 ambulatory Leila Black MD Facility:[facility] Start: 04-20-2023 End: 04-21-2023 ambulatory Leila Black MD Facility:[facility] Start: 06-17-2022 End: 06-18-[address] SANDRO AVILA Facility:[facility] Start: 05-27-2022 End: 05-27-[address] SANDRO AVILA Facility:[facility] Start: 05-15-2022 End: 05-16-2022 ambulatory NARENDRANJOLENE LAKSHMIPATHY . Facility:[facility] Start: 04-24-2022 End: 05-24-[address] SANDRO AVILA Facility:[facility] Start: 04-22-2022 End: 04-23-[address] KIERAN NESS Facility:[facility] Start: 04-17-2022 End: 04-18-2022 ambulatory MACK MONTIEL . Facility:[facility] Start: 03-07-2022 End: 03-08-[address] SANDRO AVILA Facility:[facility] Start: 11-14-2021 End: 11-14-2021 ambulatory [facility] Start: 08-19-2021 End: 08-20-[address] SANDRO AVILA Facility:[facility] Procedures Date Procedure Procedure Detail Performing Clinician Start: 09-01-2024 Prothrombin time Sandro Avila MD Work Phone: Start: 08-04-2024 Prothrombin time Sandro Avila MD Work Phone: Start: 01-06-2024 Prothrombin time Sandro Avila MD Work Phone: Start: 11-25-2023 Prothrombin time Sandro Avila MD Work Phone: Start: 04-16-2023 Mammography Sandro fontanez MD Work Phone: Start: 07-22-2022 H/O: hysterectomy History of hystere ctomy Sandro Avila MD Work Phone: Start: 08-01-2013 Colonoscopy Sandro fontanez MD Work Phone: Plan of Treatment Date Care Activity Detail Author Start: 2027 Screening for malign ant neoplasm of colon [facility] Start: 03-25-2025 Medicare Annual Wellness (AWV) Medicare Annual Wellness (AWV) [facility] Start: 10-31-2024 End: 10-31-2024 Patient encounter procedure 10/31/2024 4:30 PM EDT Office Visit [place] [place] [address] [facility] [address] [place] [id number] Sandro Avila MD [address] [facility] [address] [place] [address] BO[facility]se Start: 10-24-2024 Influenza vaccination Influenza Vacc ine (#1) [facility] Start: 10-13-2024 End: 10-13-2024 Patient encounter procedure [facility] Start: 09-01-2024 End: 09-01-2024 Patient encounter procedure [facility] Comment on above: Arrived Start: 08-04-2024 End: 08-04-2025 Pulmonary function report Pulmonary Function Test Imaging Routine Moderate persistent asthma without complication (HCC) Expected: 08/04/2024, Expires: 08/04/2025 [facility] Work Phone: Comment on above: Expected: 08/04/2024 , Expires: 08/04/2025 Start: 08-04-2024 End: 08-04-2024 Patient encounter procedure 08/04/2024 10:45 AM EDT Office Visit [facility] [address] [facility] [address] [place] [address] Sandro Avila MD [address] [place] [address] [place] [address] Arrived [facility] Comment on above: Arrived Start: 07-06-2024 End: 07-06-2024 Patient encounter procedure 07/06/2024 11:45 AM EDT Office Visit [facility] [address] [place] [address] [place] [address] Sandro Avila MD [address] [facility] [address] [place] [address] [facility] Start: 05-06-2024 End: 05-06-2024 Patient encounter procedure 05/06/2024 11:30 AM EDT Office Visit [facility] [address] [place] [address] [place] [address] Sandro Avila MD [address] [place] [address] [place] [address] [facility] Start: 04-16-2024 Screening for malign ant neoplasm of breast Mammogram [facility] Start: 03-07-2024 End: 03-07-2024 Patient encounter procedure 03/07/2024 11:15 AM EST Office Visit [facility] [address] [facility] [address] [place] [address] Sandro Avila MD [address] [facility] [address] [place] [address] [facility] Start: 01-22-2024 Medicare Annual Wellness (AWV) Medicare Annual Wellness (AWV) [facility] Start: 01-06-2024 End: 01-05-2025 Noninvasive colorectal cancer DNA and occult blood screening [Presence] in Stool Cologuard colon cancer screening Lab Routine Encounter for screening for malignant neoplasm of colon Expected: 01/06/2024 (Approximate), Expires: 01/05/2025 [facility] Work Phone: Comment on above: Expected: 01/06/2024 (Approximate), Expires: 01/05/2025 Start: 01-06-2024 End: 01-06-2024 Patient encounter procedure 01/06/2024 11:00 AM EST Office Visit [facility] [address] [facility] [address] [place] [address] Sandro Avila MD [address] [facility] [address] [place] [address] [facility] Start: 11-25-2023 End: 11-24-2024 Comprehensive metabolic 2000 panel - Serum or Plasma Comprehensive metabolic panel Lab Routine Stage 3a chronic kidney disease (HCC) ([facility]/HCC) Expected: 11/25/2023 (Approximate), Expires: 11/24/2024 [facility] Comment on above: Expected: 11/25/2023 (Approximate), Expires: 11/24/2024 Start: 11-25-2023 End: 11-24-2024 Lipid 1996 panel - Serum or Plasma Lipid panel Lab Routine 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 (CMS/HCC) Expected: 11/25/2023 (Approximate), Expires: 11/24/2024 [facility] Comment on above: Expected: 11/25/2023 (Approximate), Expires: 11/24/2024 Start: 11-25-2023 End: 11-24-2024 TSH W/REFLEX TO FT4 TSH W/REFLEX TO FT4 Lab Routine Multinodular goiter ([facility]) Expected: 11/25/2023 (Approximate), Expires: 11/24/2024 [facility] Comment on above: Expected: 11/25/2023 (Approximate), Expires: 11/24/2024 Start: 11-25-2023 End: 11-25-2023 Patient encounter procedure 11/25/2023 11:45 AM EDT Office Visit [facility] [address] [facility] [address] [place] [phone] Sandro Avila MD [address] [facility] [address] [place] [address] Arrived [facility] Comment on above: Arrived Start: 10-25-2023 Influenza vaccination Influenza Vacc ine (#1) [facility] Start: 08-02-2023 Screening for malign ant neoplasm of colon [facility] Start: 11-19-2019 Pneumococcal Vaccine : 65+ Years (2 of 2 - PCV) Pneumococcal Vaccine: 65+ Years (2 of 2 - PCV) [facility] Start: 1955 Screening for malign ant neoplasm of colon [facility] CBC W Auto Different ial panel - Blood CBC and differential Lab Routine Hypercoagulable state ([facility]) Ordered: 11/25/2023 [facility] Work Phone: Comment on above: Ordered: 11/25/2023 Immunizations Immunization Date Immunization Notes Care Provider [facility] 01-06-2024 Influenza, High-dose Seasonal, Quadrivalent, Preservative Free Sandro Avila MD Work Phone: [facility] 01-06-2024 influenza virus vacc ine, unspecified formulation Sandro Avila MD Work Phone: [facility] 01-21-2023 Influenza, High-dose Seasonal, Quadrivalent, Preservative Free Sandro Avila MD Work Phone: [facility] 01-21-2023 influenza virus vacc ine, unspecified formulation Sandro Avila MD Work Phone: [facility] 01-20-2022 influenza, high dose seasonal, preservative-free Sandro Avila MD Work Phone: [facility] 01-15-2021 influenza, high dose seasonal, preservative-free Sandro Avila MD Work Phone: [facility] 11-21-2019 influenza, high dose seasonal, preservative-free Sandro Avila MD Work Phone: [facility] 11-21-2019 Influenza, High-dose Seasonal, Quadrivalent, Preservative Free Sandro Avila MD Work Phone: [facility] 12-23-2018 influenza, high dose seasonal, preservative-free Sandro Avila MD Work Phone: [facility] 12-23-2018 Influenza, High-dose Seasonal, Quadrivalent, Preservative Free Sandro Avila MD Work Phone: [facility] 11-18-2018 pneumococcal polysaccharide vaccine, 23 valent Sandro Avila MD Work Phone: [facility] 01-07-2017 seasonal influenza, intradermal, preservative free Sandro Avila MD Work Phone: [facility] 12-18-2015 influenza, injectabl e, quadrivalent, contains preservative Sandro Avila MD Work Phone: [facility] 11-08-2014 seasonal influenza, intradermal, preservative free Sandro Avila MD Work Phone: [facility] 12-11-2010 seasonal influenza, intradermal, preservative free Sandro Avila MD Work Phone: [facility] Payers Date Payer Category Payer Medicare [id number] 2015 [facility] 1.2.8 [id number] 15 2015 Unknown 1959 Medicare [id number] 1959 Unknown [id number] 1953 Unknown [id number] 2.16.84 [id number] 1953 Unknown [id number] 2.16.84 0.1.588054.3.579.2.593 1953 Unknown [id number] 2.16.84 0.1.262698.3.579.2.593 1953 Unknown [id number] 2.16.84 0.1.334216.3.579.2.593 1953 Unknown [id number] 2.16.84 0.1.946640.3.579.2.593 1953 Unknown [id number] 2.16.84 0.1.012709.3.579.2.593 1953 Unknown [id number] 2.16.84 0.1.600034.3.579.2.593 1953 Unknown [id number] 2.16.84 0.1.109123.3.579.2.593 1953 Unknown [id number] 2.16. 840.1.504324.3.579.2.196 1953 Unknown [id number] 2.16. 840.1.460900.3.579.2.196 1953 Unknown [id number] 2.16. 840.1.999129.3.579.2.196 1953 Unknown [id number] 2.16.8 40.1.364981.3.579.2.1259 1953 Unknown [id number] 2.16.8 40.1.129618.3.579.2.1259 1953 Unknown [id number] 2.16.84 0.1.133577.3.579.2.1259 1953 Unknown [id number] 2.16.84 0.1.720480.3.579.2.1259 1953 Unknown [id number] 2.16.84 0.1.242949.3.579.2.1259 1953 Unknown [id number] 2.16.84 [id number] Social History Date Type Detail Facility Start: 10-16-2022 Tobacco smoking status NHIS Never sm oked tobacco [facility] Start: 10-16-2022 Tobacco use and exposure Smoke less tobacco non-user [facility] Start: 07-23-2023 End: 09-01-2024 Alcoholic beverage intake Lifetime non-drinker (finding) [facility] Start: 04-15-2023 End: 05-05-2024 [facility] of Social function [facility] Start: 04-15-2023 End: 05-05-2024 Social connection and isolation panel [facility] Do you belong to any clubs or organizations such as yazidism groups, unions, fraternal or athletic groups, or school groups? Yes [facility] Are you now , , , , never or living with a partner? [facility] How often to you hav e a drink containing alcohol? Never [facility] How many standard dr inks containing alcohol do you have on a typical day? Patient does not drink [facility] How hard is it for y ou to pay for the very basics like food, housing, medical care, and heating Not very hard [facility] Do you feel stress - tense, restless, nervous, or anxious, or unable to sleep at night because your mind is troubled all the time - these days [OSQ] Only a little [facility] (I/We) worried wheth er (my/our) food would run out before (I/we) got money to buy more. Never true [facility] In the past 12 month s, was there a time when you were not able to pay the mortgage or rent on time? No [facility] Start: 1955 Sex assigned at Not on file [facility] Do you feel stress - tense, restless, nervous, or anxious, or unable to sleep at night because your mind is troubled all the time - these days [OSQ] Not at all [facility] Functional Status Date Assessment Result Facility 09-01-2024 Patient Health Quest ionnaire 2 item (PHQ-2) [Reported] [facility] 08-04-2024 Patient Health Quest ionnaire 2 item (PHQ-2) [Reported] [facility] Clinical Notes 11-14-2021 to 10-10-2024 Telephone Encounter - ALEXANDRE Michelle - 10/10/2024 10:03 AM EDTTelephone Encounter - ALEXANDRE Michelle - 10/10/2024 10:03 AM EDTTelephone Encounter - LILLIANA VILLANUEVA - 10/10/2024 9:36 AM EDT Note Date & Type Note Facility 10-10-2024 Telephone encounter Note OARRS reviewed, Rx sent into patient's pharmacy. [facility] 10-10-2024 Miscellaneous Notes OARRS reviewed, Rx sent into patient's pharmacy. OV 09/01/24 RF 6/07/17 Ambien, 6// tramadol documented in this encounter [facility] 10-10-2024 Telephone encounter Note OV 09/01/24 RF 07/28/24 Ambien, 6 tramadol [facility] 09-01-2024 History of Presen t illness Narrative Images from the original note were not included. HPI INR VISIT Additional comments: Coumadin 5mg sun,Wed 7.5mg all other days Last edited by Aida Enriquez LPN on 09/01/2024 11:27 AM. Subjective Patient ID: Kristina Vargas is a 69 y.o. female who presents for INR VISIT (Coumadin 5mg sun,Wed 7.5mg all other days) and Asthma. Pt taking coumadin as directed Denies and abnormal bleeding or bruising Pt had to stop the Breztri was causing increased shortness of breath and cough she went back on the wixela and is doing better Has not had the testing ordered last visit yet--resending orders to [facility] Asthma Her past medical history is significant for asthma. Med Refill Over the past 2 weeks, how often have you been bothered by any of the following problems? Little interest or pleasure in doing things: Not at all Feeling down, depressed, or hopeless: Not at all Patient Health Questionnaire-2 Score: 0 Current Outpatient Medications on File Prior to Visit Medication Sig Dispense Refill albuterol (2.5 MG/3ML) 0.083% nebulizer solution Take 2.5 mg by nebulization in the morning and 2.5 mg at noon and 2.5 mg in the evening and 2.5 mg before bedtime. alendronate (Fosamax) 70 MG tablet cyclobenzaprine (Flexeril) 10 MG tablet Take 1 tablet (10 mg) by mouth every 8 (eight) hours if needed for muscle spasms 360 tablet 3 Fluticasone-Salmeterol (Wixela Inhub) 100-50 MCG/ACT aerosol powder Take 1 puff by mouth in the morning and 1 puff before bedtime. 3 each 3 folic acid (Folvite) 1 MG tablet TAKE 4 TABLETS BY MOUTH DAILY 360 tablet 3 HYDROcodone-acetaminophen ([place]) 5-325 MG tablet Take 1 tablet by mouth every 6 (six) hours if needed for severe pain 30 tablet 0 ipratropium-albuterol (Combivent Respimat) 20-100 MCG/ACT inhaler Inhale 1 puff in the morning and 1 puff at noon and 1 puff in the evening and 1 puff before bedtime. 12 g 3 ipratropium-albuterol (Duo-Neb) 0.5-2.5 mg/3 mL nebulizer solution isosorbide mononitrate ER (Imdur) 60 MG 24 hr tablet TAKE 1 TABLET (60 MG) BY MOUTH IN THE MORNING 100 tablet 4 levothyroxine (Synthroid, Levoxyl) 50 MCG tablet TAKE 2 TABLETS BY MOUTH ONCE EVERY MORNING ON AN EMPTY STOMACH 180 tablet 3 meclizine (Antivert) 25 MG tablet montelukast (Singulair) 10 MG tablet Take 10 mg by mouth at bedtime. NexIUM [address] capsule Take 1 capsule by mouth in the morning. Take before meals. nitroglycerin (NitrolinguaL) 0.4 MG/SPRAY spray Place 1 spray under the tongue every 5 (five) minutes if needed for chest pain. ondansetron (Zofran) 4 MG tablet Take 4 mg by mouth every 8 (eight) hours if needed. ranolazine (Ranexa) 500 MG 12 hr tablet Take 1 tablet (500 mg) by mouth in the morning and 1 tablet (500 mg) before bedtime. 180 tablet 3 simvastatin (Zocor) 20 MG tablet Take 1 tablet (20 mg) by mouth at bedtime 90 tablet 3 warfarin (Coumadin) 5 MG tablet TAKE DIRECTED PER AFTER VISIT SUMMARY. 90 tablet 3 warfarin (Coumadin) 7.5 MG tablet TAKE 1 TABLET BY MOUTH EVERY DAY 100 tablet 4 zolpidem (Ambien) 10 MG tablet Take 1 tablet (10 mg) by mouth as needed at bedtime for sleep 90 tablet 0 No current facility-administered medications on file prior to visit. I have reviewed and reconciled the history and medication list with the patient today. Allergies Allergen Reactions Atorvastatin Unknown Codeine Unknown Mcnamara-2 Inhibitors (Sulfonamide) Hydrocodone-Acetaminophen Hives Meperidine Unknown Meperidine Hcl Other Reaction(s): Not available Omeprazole Unknown Pravastatin Unknown Ranitidine Unknown Rofecoxib Other Rosuvastatin Other Reaction(s): Not available Sucralfate Unknown Sulfamethoxazole Unknown Sulfanilamide Unknown Trimethoprim Unknown Social History Tobacco Use Smoking status: Never Smokeless tobacco: Never Substance Use Topics Alcohol use: Never Family History Problem Relation Name Age of Onset Hypertension Mother Heart disease Mother Heart disease Father Past Medical History: Diagnosis Date Allergic Arthritis Asthma (HCC) CAD (coronary artery disease) COPD (chronic obstructive pulmonary disease) (HCC) DVT (deep venous thrombosis) (HCC) GERD (gastroesophageal reflux disease) Migraine PUD (peptic ulcer disease) Thyroid nodule Past Surgical History: Procedure Laterality Date ANGIOPLASTY APPENDECTOMY BUNIONECTOMY Left CATARACT EXTRACTION COLONOSCOPY 2013 EGD 2013 HERNIA REPAIR TUBAL LIGATION Visit Vitals BP 124/70 Pulse 86 Ht 5' 3.5 Wt 170 lb SpO2 95% BMI 29.64 kg/m Smoking Status Never BSA 1.86 m Review of Systems Objective Physical Exam Constitutional: General: She is not in acute distress. Appearance: Normal appearance. She is well-developed. HENT: Head: Normocephalic and atraumatic. Right Ear: Tympanic membrane and ear canal normal. Left Ear: Tympanic membrane and ear canal normal. Mouth/Throat: Mouth: Mucous membranes are moist. Eyes: General: No scleral icterus. Conjunctiva/sclera: Conjunctivae normal. Cardiovascular: Rate and Rhythm: Normal rate and regular rhythm. Heart sounds: Normal heart sounds. No murmur heard. Pulmonary: Effort: Pulmonary effort is normal. No respiratory distress. Breath sounds: Normal breath sounds. No wheezing, rhonchi or rales. Musculoskeletal: Back: Comments: Area of pain with deep palpation Lymphadenopathy: Cervical: No cervical adenopathy. Skin: General: Skin is warm and dry. Neurological: General: No focal deficit present. Mental Status: She is alert and oriented to person, place, and time. Psychiatric: Mood and Affect: Mood normal. Behavior: Behavior normal. Office Visit on 09/01/2024 Component Date Value Ref Range Status RESULTS 09/01/2024 3.1 Final Assessment/Plan Diagnoses and all orders for this visit: Moderate persistent asthma without complication (HCC) - Did not respond to Breztri. Pulmonary embolism with infarction (HCC) - POCT Protime-INR, fingerstick docked device - No dose change, INR in 6 weeks. Chronic kidney disease, stage 3a (CMS-HCC) - This is a chronic medical condition that is stable since last assessment. No changes in treatment are suggested at this time. Follow up in about 6 weeks (around 10/13/2024) for PT/INR. documented in this encounter [facility] 08-04-2024 History of Presen t illness Narrative Images from the original note were not included. HPI INR VISIT Additional comments: Coumadin 5mg Sun/Wed 7.5mg all other days Med Refill Additional comments: [facility]one-- [facility] Last edited by Aida Enriquez LPN on 08/04/2024 10:48 AM. Subjective Patient ID: Kristina Vargas is a 69 y.o. female who presents for INR VISIT (Coumadin 5mg Sun/Wed 7.5mg all other days) and Med Refill ([facility]-- [facility]). Pt taking coumadin as directed Denies and abnormal bleeding or bruising Med Refill Current Outpatient Medications on File Prior to Visit Medication Sig Dispense Refill albuterol (2.5 MG/3ML) 0.083% nebulizer solution Take 2.5 mg by nebulization in the morning and 2.5 mg at noon and 2.5 mg in the evening and 2.5 mg before bedtime. alendronate (Fosamax) 70 MG tablet cyclobenzaprine (Flexeril) 10 MG tablet Take 1 tablet (10 mg) by mouth every 8 (eight) hours if needed for muscle spasms 360 tablet 3 Fluticasone-Salmeterol (Wixela Inhub) 100-50 MCG/ACT aerosol powder Take 1 puff by mouth in the morning and 1 puff before bedtime. 3 each 3 folic acid (Folvite) 1 MG tablet TAKE 4 TABLETS BY MOUTH DAILY 360 tablet 3 ipratropium-albuterol (Combivent Respimat) 20-100 MCG/ACT inhaler Inhale 1 puff in the morning and 1 puff at noon and 1 puff in the evening and 1 puff before bedtime. 12 g 3 ipratropium-albuterol (Duo-Neb) 0.5-2.5 mg/3 mL nebulizer solution isosorbide mononitrate ER (Imdur) 60 MG 24 hr tablet TAKE 1 TABLET (60 MG) BY MOUTH IN THE MORNING 100 tablet 4 levothyroxine (Synthroid, Levoxyl) 50 MCG tablet TAKE 2 TABLETS BY MOUTH ONCE EVERY MORNING ON AN EMPTY STOMACH 180 tablet 3 meclizine (Antivert) 25 MG tablet montelukast (Singulair) 10 MG tablet Take 10 mg by mouth at bedtime. NexIUM [address] capsule Take 1 capsule by mouth in the morning. Take before meals. nitroglycerin (NitrolinguaL) 0.4 MG/SPRAY spray Place 1 spray under the tongue every 5 (five) minutes if needed for chest pain. ondansetron (Zofran) 4 MG tablet Take 4 mg by mouth every 8 (eight) hours if needed. ranolazine (Ranexa) 500 MG 12 hr tablet Take 1 tablet (500 mg) by mouth in the morning and 1 tablet (500 mg) before bedtime. 180 tablet 3 simvastatin (Zocor) 20 MG tablet Take 1 tablet (20 mg) by mouth at bedtime 90 tablet 3 traMADol (Ultram) 50 MG tablet Take 1 tablet (50 mg) by mouth every 6 (six) hours if needed for severe pain for up to 15 days 60 tablet 0 warfarin (Coumadin) 5 MG tablet TAKE DIRECTED PER AFTER VISIT SUMMARY. 90 tablet 3 warfarin (Coumadin) 7.5 MG tablet TAKE 1 TABLET BY MOUTH EVERY DAY 100 tablet 4 zolpidem (Ambien) 10 MG tablet Take 1 tablet (10 mg) by mouth as needed at bedtime for sleep 90 tablet 0 [DISCONTINUED] HYDROcodone-acetaminophen ([place]) 5-325 MG tablet Take 1 tablet by mouth every 6 (six) hours if needed for severe pain 30 tablet 0 [DISCONTINUED] ranolazine (Ranexa) 500 MG 12 hr tablet Take 500 mg by mouth in the morning and 500 mg before bedtime. No current facility-administered medications on file prior to visit. I have reviewed and reconciled the history and medication list with the patient today. Allergies Allergen Reactions Atorvastatin Unknown Codeine Unknown Mcnamara-2 Inhibitors (Sulfonamide) Hydrocodone-Acetaminophen Hives Meperidine Unknown Meperidine Hcl Other Reaction(s): Not available Omeprazole Unknown Pravastatin Unknown Ranitidine Unknown Rofecoxib Other Rosuvastatin Other Reaction(s): Not available Sucralfate Unknown Sulfamethoxazole Unknown Sulfanilamide Unknown Trimethoprim Unknown Social History Tobacco Use Smoking status: Never Smokeless tobacco: Never Substance Use Topics Alcohol use: Never Family History Problem Relation Name Age of Onset Hypertension Mother Heart disease Mother Heart disease Father Past Medical History: Diagnosis Date Allergic Arthritis Asthma (HCC) CAD (coronary artery disease) COPD (chronic obstructive pulmonary disease) (HCC) DVT (deep venous thrombosis) (HCC) GERD (gastroesophageal reflux disease) Migraine PUD (peptic ulcer disease) Thyroid nodule Past Surgical History: Procedure Laterality Date ANGIOPLASTY APPENDECTOMY BUNIONECTOMY Left CATARACT EXTRACTION COLONOSCOPY 2013 EGD 2013 HERNIA REPAIR TUBAL LIGATION Visit Vitals BP 122/76 Pulse 78 Ht 5' 3.5 Wt 169 lb SpO2 95% BMI 29.47 kg/m Smoking Status Never BSA 1.85 m Review of Systems Objective Physical Exam Constitutional: General: She is not in acute distress. Appearance: Normal appearance. She is well-developed. HENT: Head: Normocephalic and atraumatic. Right Ear: Tympanic membrane and ear canal normal. Left Ear: Tympanic membrane and ear canal normal. Mouth/Throat: Mouth: Mucous membranes are moist. Eyes: General: No scleral icterus. Conjunctiva/sclera: Conjunctivae normal. Cardiovascular: Rate and Rhythm: Normal rate and regular rhythm. Heart sounds: Normal heart sounds. No murmur heard. Pulmonary: Effort: Pulmonary effort is normal. No respiratory distress. Breath sounds: Normal breath sounds. No wheezing, rhonchi or rales. Musculoskeletal: Back: Comments: Area of pain with deep palpation Lymphadenopathy: Cervical: No cervical adenopathy. Skin: General: Skin is warm and dry. Neurological: General: No focal deficit present. Mental Status: She is alert and oriented to person, place, and time. Psychiatric: Mood and Affect: Mood normal. Behavior: Behavior normal. Office Visit on 08/04/2024 Component Date Value Ref Range Status RESULTS 08/04/2024 2.9 Final Assessment/Plan Diagnoses and all orders for this visit: Pulmonary embolism with infarction (HCC) - POCT Protime-INR, fingerstick docked device - The patient has been compliant with Coumadin therapy and INR is currently within therapeutic range. Return to clinic in 4 weeks for INR recheck. Chronic left-sided lumbar radiculopathy - HYDROcodone-acetaminophen ([place]) 5-325 MG tablet; Take 1 tablet by mouth every 6 (six) hours if needed for severe pain - Medication choice and dosage is appropriate for patient's current medical conditions. Patient will continue to be required to be seen in our office at least every three months for monitoring. At each follow up visit I will reassess the patient's need for the medication. Patient is to have this medication prescribed only through this office. Failure to follow the rules and regulations will result in tapering and discontinuation of medications if applicable. Patient verbalized understanding. OARRS Report was reviewed for this patient. Moderate persistent asthma without complication (HCC) - Pulmonary Function Test; Future - Trial of Breztri 2 puffs bid instead of Advair- samples given X 4 weeks. Follow up in about 4 weeks (around 09/01/2024) for PT/INR, Test/Lab Review, F/U med changes. documented in this encounter [facility] 06-10-2024 Telephone encounter Note OARRS reviewed, Rx sent into patient's pharmacy. [facility] 06-10-2024 Miscellaneous Notes OARRS reviewed, Rx sent into patient's pharmacy. documented in this encounter [facility] 04-21-2024 Telephone encounter Note OARRS reviewed, Rx sent into patient's pharmacy. [facility] 04-21-2024 Miscellaneous Notes OARRS reviewed, Rx sent into patient's pharmacy. documented in this encounter [facility] 04-09-2024 Telephone encounter Note Simvastatin sent [facility] 04-09-2024 Miscellaneous Notes Simvastatin sent documented in this encounter [facility] 03-01-2024 Telephone encounter Note OARRS reviewed, Rx sent into patient's pharmacy. [facility] 03-01-2024 Miscellaneous Notes OARRS reviewed, Rx sent into patient's pharmacy. documented in this encounter [facility] 12-03-2024 Telephone encounter Note OARRS reviewed, Rx sent into patient's pharmacy. [facility] 01-26-2024 Miscellaneous Notes OARRS reviewed, Rx sent into patient's pharmacy. documented in this encounter [facility] 01-06-2024 History of Presen t illness Narrative Images from the original note were not included. HPI INR VISIT Additional comments: Coumadin 5mg Sun/Wed 7.5mg all other days Med Refill Additional comments: [facility] Last edited by Aida Enriquez LPN on 01/06/2024 10:56 AM. Subjective Patient ID: Kristina Vargas is a 68 y.o. female who presents for INR VISIT (Coumadin 5mg Sun/Wed 7.5mg all other days), Med Refill ([facility]), and Edema. Edema Patient complains of edema in both ankles and feet. Onset of symptoms was 2 weeks ago, and patient reports symptoms have gradually improved since that time. he patient states Pt went to [place] recently and started having some swelling in feet Med Refill Edema Current Outpatient Medications on File Prior to Visit Medication Sig Dispense Refill albuterol (2.5 MG/3ML) 0.083% nebulizer solution Take 2.5 mg by nebulization in the morning and 2.5 mg at noon and 2.5 mg in the evening and 2.5 mg before bedtime. alendronate (Fosamax) 70 MG tablet cyclobenzaprine (Flexeril) 10 MG tablet Take 1 tablet (10 mg) by mouth every 8 (eight) hours if needed for muscle spasms 90 tablet 2 Fluticasone-Salmeterol (Wixela Inhub) 100-50 MCG/ACT aerosol powder Take 1 puff by mouth in the morning and 1 puff before bedtime. 3 each 3 folic acid (Folvite) 1 MG tablet TAKE 4 TABLETS BY MOUTH DAILY 360 tablet 3 ipratropium-albuterol (Combivent Respimat) 20-100 MCG/ACT inhaler ipratropium-albuterol (Duo-Neb) 0.5-2.5 mg/3 mL nebulizer solution isosorbide mononitrate ER (Imdur) 60 MG 24 hr tablet TAKE 1 TABLET (60 MG) BY MOUTH IN THE MORNING 100 tablet 4 levothyroxine (Synthroid, Levoxyl) 50 MCG tablet TAKE 2 TABLETS BY MOUTH ONCE EVERY MORNING ON AN EMPTY STOMACH 180 tablet 3 meclizine (Antivert) 25 MG tablet montelukast (Singulair) 10 MG tablet Take 10 mg by mouth at bedtime. NexIUM [address] capsule Take 1 capsule by mouth in the morning. Take before meals. nitroglycerin (NitrolinguaL) 0.4 MG/SPRAY spray Place 1 spray under the tongue every 5 (five) minutes if needed for chest pain. ondansetron (Zofran) 4 MG tablet Take 4 mg by mouth every 8 (eight) hours if needed. ranolazine (Ranexa) 500 MG 12 hr tablet Take 500 mg by mouth in the morning and 500 mg before bedtime. simvastatin (Zocor) 20 MG tablet TAKE 1 TABLET BY MOUTH EVERY DAY IN THE EVENING FOR 100 DAYS 90 tablet 4 warfarin (Coumadin) 5 MG tablet Take as directed per After Visit Summary. 30 tablet 11 warfarin (Coumadin) 7.5 MG tablet TAKE 1 TABLET BY MOUTH EVERY DAY 100 tablet 4 zolpidem (Ambien) 10 MG tablet Take 1 tablet (10 mg) by mouth as needed at bedtime for sleep 90 tablet 1 [DISCONTINUED] HYDROcodone-acetaminophen ([place]) 5-325 MG tablet Take 1 tablet by mouth every 6 (six) hours if needed for severe pain 30 tablet 0 [DISCONTINUED] gabapentin (Neurontin) 300 MG capsule Take 300 mg by mouth in the morning and 300 mg before bedtime. [DISCONTINUED] pregabalin (Lyrica) 75 MG capsule Take 75 mg by mouth in the morning and 75 mg before bedtime. No current facility-administered medications on file prior to visit. I have reviewed and reconciled the history and medication list with the patient today. Allergies Allergen Reactions Atorvastatin Unknown Codeine Unknown Meperidine Unknown Omeprazole Unknown Pravastatin Unknown Ranitidine Unknown Rofecoxib Other Sucralfate Unknown Sulfamethoxazole Unknown Sulfanilamide Unknown Trimethoprim Unknown Social History Tobacco Use Smoking status: Never Smokeless tobacco: Never Substance Use Topics Alcohol use: Never Family History Problem Relation Name Age of Onset Hypertension Mother Heart disease Mother Heart disease Father Past Medical History: Diagnosis Date Allergic Arthritis Asthma (CMS/HCC) CAD (coronary artery disease) (CMS/HCC) COPD (chronic obstructive pulmonary disease) (CMS/HCC) DVT (deep venous thrombosis) (CMS/HCC) GERD (gastroesophageal reflux disease) Migraine (CMS/HCC) PUD (peptic ulcer disease) Thyroid nodule (CMS/HCC) Past Surgical History: Procedure Laterality Date ANGIOPLASTY APPENDECTOMY BUNIONECTOMY Left CATARACT EXTRACTION COLONOSCOPY 2013 EGD 2013 HERNIA REPAIR TUBAL LIGATION Visit Vitals BP 122/70 Pulse 92 Ht 5' 3.5 Wt 166 lb SpO2 97% BMI 28.94 kg/m Smoking Status Never BSA 1.84 m Review of Systems Objective Physical Exam Constitutional: General: She is not in acute distress. Appearance: Normal appearance. She is well-developed. HENT: Head: Normocephalic and atraumatic. Eyes: General: No scleral icterus. Conjunctiva/sclera: Conjunctivae normal. Cardiovascular: Rate and Rhythm: Normal rate and regular rhythm. Heart sounds: Normal heart sounds. No murmur heard. Pulmonary: Effort: Pulmonary effort is normal. No respiratory distress. Breath sounds: Normal breath sounds. No wheezing, rhonchi or rales. Musculoskeletal: Back: Comments: Area of pain with deep palpation Skin: General: Skin is warm and dry. Neurological: General: No focal deficit present. Mental Status: She is alert and oriented to person, place, and time. Psychiatric: Mood and Affect: Mood normal. Behavior: Behavior normal. Office Visit on 01/06/2024 Component Date Value Ref Range Status RESULTS 01/06/2024 3.3 Final Assessment/Plan Diagnoses and all orders for this visit: Hypercoagulable state (CMS/HCC) - The patient has been compliant with Coumadin therapy and INR is currently within therapeutic range. Return to clinic in weeks for INR recheck. Pulmonary embolism with infarction (CMS/HCC) - POCT Protime-INR, fingerstick docked device Flu vaccine need - Influenza, high-dose seasonal, quadrivalent, PF (WDD232) (Fluzone High Dose [place] 0.7mL dose) Encounter for screening for malignant neoplasm of colon - Cologuard colon cancer screening; Future Chronic left-sided lumbar radiculopathy - HYDROcodone-acetaminophen ([place]) 5-325 MG tablet; Take 1 tablet by mouth every 6 (six) hours if needed for severe pain - Medication choice and dosage is appropriate for patient's current medical conditions. Patient will continue to be required to be seen in our office at least every three months for monitoring. At each follow up visit I will reassess the patient's need for the medication. Patient is to have this medication prescribed only through this office. Failure to follow the rules and regulations will result in tapering and discontinuation of medications if applicable. Patient verbalized understanding. OARRS Report was reviewed for this patient. Follow up in about 2 months (around 03/07/2024) for Test/Lab Review, PT/INR. documented in this encounter [facility] 11-25-2023 History of Presen t illness Narrative Images from the original note were not included. HPI INR VISIT Additional comments: Coumadin 5mg Sun/Wed 7.5mg all other days Med Refill Additional comments: Hydrocodone,combivent,flexeril- - [facility] Last edited by Aida Enriquez LPN on 11/25/2023 11:42 AM. Subjective Patient ID: Kristina Vargas is a 68 y.o. female who presents for INR VISIT (Coumadin 5mg Sun/Wed 7.5mg all other days) and Med Refill (Hydrocodone,combivent,flexeril -- [facility]). Pt taking coumadin as directed Denies and abnormal bleeding or bruising Pt had covid beginning of oct. Med Refill Current Outpatient Medications on File Prior to Visit Medication Sig Dispense Refill albuterol (2.5 MG/3ML) 0.083% nebulizer solution Take 2.5 mg by nebulization in the morning and 2.5 mg at noon and 2.5 mg in the evening and 2.5 mg before bedtime. alendronate (Fosamax) 70 MG tablet folic acid (Folvite) 1 MG tablet TAKE 4 TABLETS BY MOUTH DAILY 360 tablet 3 gabapentin (Neurontin) 300 MG capsule Take 300 mg by mouth in the morning and 300 mg before bedtime. ipratropium-albuterol (Combivent Respimat) 20-100 MCG/ACT inhaler ipratropium-albuterol (Duo-Neb) 0.5-2.5 mg/3 mL nebulizer solution isosorbide mononitrate ER (Imdur) 60 MG 24 hr tablet TAKE 1 TABLET (60 MG) BY MOUTH IN THE MORNING 100 tablet 4 levothyroxine (Synthroid, Levoxyl) 50 MCG tablet TAKE 2 TABLETS BY MOUTH ONCE EVERY MORNING ON AN EMPTY STOMACH 180 tablet 3 meclizine (Antivert) 25 MG tablet montelukast (Singulair) 10 MG tablet Take 10 mg by mouth at bedtime. NexIUM [address] capsule Take 1 capsule by mouth in the morning. Take before meals. nitroglycerin (NitrolinguaL) 0.4 MG/SPRAY spray Place 1 spray under the tongue every 5 (five) minutes if needed for chest pain. ondansetron (Zofran) 4 MG tablet Take 4 mg by mouth every 8 (eight) hours if needed. pregabalin (Lyrica) 75 MG capsule Take 75 mg by mouth in the morning and 75 mg before bedtime. ranolazine (Ranexa) 500 MG 12 hr tablet Take 500 mg by mouth in the morning and 500 mg before bedtime. simvastatin (Zocor) 20 MG tablet TAKE 1 TABLET BY MOUTH EVERY DAY IN THE EVENING FOR 100 DAYS 90 tablet 4 warfarin (Coumadin) 5 MG tablet Take as directed per After Visit Summary. 30 tablet 11 warfarin (Coumadin) 7.5 MG tablet TAKE 1 TABLET BY MOUTH EVERY DAY 100 tablet 4 zolpidem (Ambien) 10 MG tablet Take 1 tablet (10 mg) by mouth as needed at bedtime for sleep 90 tablet 1 [DISCONTINUED] cyclobenzaprine (Flexeril) 10 MG tablet Take 10 mg by mouth every 8 (eight) hours if needed for muscle spasms. [DISCONTINUED] Fluticasone-Salmeterol (Wixela Inhub) 100-50 MCG/ACT aerosol powder Take 1 puff by mouth in the morning and 1 puff before bedtime. 3 each 3 [DISCONTINUED] HYDROcodone-acetaminophen ([place]) 5-325 MG tablet Take 1 tablet by mouth every 6 (six) hours if needed for severe pain 30 tablet 0 [DISCONTINUED] predniSONE (Deltasone) 20 MG tablet TAKE 1 TABLET DAILY FOR 5 DAYS 5 tablet 0 No current facility-administered medications on file prior to visit. I have reviewed and reconciled the history and medication list with the patient today. Allergies Allergen Reactions Atorvastatin Unknown Codeine Unknown Meperidine Unknown Omeprazole Unknown Pravastatin Unknown Ranitidine Unknown Rofecoxib Other Sucralfate Unknown Sulfamethoxazole Unknown Sulfanilamide Unknown Trimethoprim Unknown Social History Tobacco Use Smoking status: Never Smokeless tobacco: Never Substance Use Topics Alcohol use: Never Family History Problem Relation Name Age of Onset Hypertension Mother Heart disease Mother Heart disease Father Past Medical History: Diagnosis Date Allergic Arthritis Asthma (CMS/HCC) CAD (coronary artery disease) (CMS/HCC) COPD (chronic obstructive pulmonary disease) (CMS/HCC) DVT (deep venous thrombosis) (CMS/HCC) GERD (gastroesophageal reflux disease) Migraine (CMS/HCC) PUD (peptic ulcer disease) Thyroid nodule (CMS/HCC) Past Surgical History: Procedure Laterality Date ANGIOPLASTY APPENDECTOMY BUNIONECTOMY Left CATARACT EXTRACTION COLONOSCOPY 2013 EGD 2013 HERNIA REPAIR TUBAL LIGATION Visit Vitals BP 108/66 Pulse 81 Ht 5' 3.5 Wt 169 lb SpO2 94% BMI 29.47 kg/m Smoking Status Never BSA 1.85 m Review of Systems Objective Physical Exam Constitutional: General: She is not in acute distress. Appearance: Normal appearance. She is well-developed. HENT: Head: Normocephalic and atraumatic. Eyes: General: No scleral icterus. Conjunctiva/sclera: Conjunctivae normal. Cardiovascular: Rate and Rhythm: Normal rate and regular rhythm. Heart sounds: Normal heart sounds. No murmur heard. Pulmonary: Effort: Pulmonary effort is normal. No respiratory distress. Breath sounds: Normal breath sounds. No wheezing, rhonchi or rales. Musculoskeletal: Back: Comments: Area of pain with deep palpation Skin: General: Skin is warm and dry. Neurological: General: No focal deficit present. Mental Status: She is alert and oriented to person, place, and time. Psychiatric: Mood and Affect: Mood normal. Behavior: Behavior normal. Office Visit on 11/25/2023 Component Date Value Ref Range Status RESULTS 11/25/2023 4.0 Final Assessment/Plan Diagnoses and all orders for this visit: Hypercoagulable state (CMS/HCC) - CBC and differential - Hold next dose of coumadin, then 5mg every day X 2 days, then resume prior. INR in 6 weeks. Pulmonary embolism with infarction (CMS/HCC) - POCT Protime-INR, fingerstick docked device POTS (postural orthostatic tachycardia syndrome) 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 (CMS/HCC) - Lipid panel; Future Stage 3a chronic kidney disease (HCC) (CMS/HCC) - Comprehensive metabolic panel; Future Multinodular goiter (CMS/HCC) - TSH W/REFLEX TO FT4; Future Chronic left-sided lumbar radiculopathy - HYDROcodone-acetaminophen ([place]) 5-325 MG tablet; Take 1 tablet by mouth every 6 (six) hours if needed for severe pain Moderate persistent asthma without complication ([facility]/HCC) - Fluticasone-Salmeterol (Wixela Inhub) 100-50 MCG/ACT aerosol powder ; Take 1 puff by mouth in the morning and 1 puff before bedtime. Sciatica of left side - cyclobenzaprine (Flexeril) 10 MG tablet; Take 1 tablet (10 mg) by mouth every 8 (eight) hours if needed for muscle spasms Follow up in about 6 weeks (around 01/06/2024) for PT/INR, Test/Lab Review. documented in this encounter [facility] 05-15-2022 Note CONSULTATION CONSULTATION DATE: 05/15/2022 HISTORY: [...] was 18 on today's visit. [facility] 04-17-2022 Note PAIN MANAGEMENT CONS ULTATION CONSULTATION [...] steroid injection under fluoroscopic guidance. [facility] 11-14-2021 Note Orthopaedic Surgery Subjective 11/14/21 Kristina [...] be an additional personal documentation from me. [facility] Evaluation note Diagnosis Hypercoagulable state (CMS/HCC)- Primary Primary hypercoagulable state Pulmonary embolism with infarction (CMS/HCC) Other pulmonary embolism and infarction POTS (postural orthostatic tachycardia syndrome) Unspecified tachycardia 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 (CMS/HCC) Stage 3a chronic kidney disease (HCC) (CMS/HCC) Multinodular goiter (CMS/HCC) Nontoxic multinodular goiter Chronic left-sided lumbar radiculopathy Moderate persistent asthma without complication (CMS/HCC) Sciatica of left side [facility] Diagnosis Hypercoagulable state (CMS/HCC)- Primary Primary hypercoagulable state Pulmonary embolism with infarction (CMS/HCC) Other pulmonary embolism and infarction Flu vaccine need Encounter for screening for malignant neoplasm of colon Chronic left-sided lumbar radiculopathy [facility] Diagnosis Primary insomnia Persistent disorder of initiating or maintaining sleep [facility] Diagnosis Chronic left-sided lumbar radiculopathy [facility] Diagnosis Pulmonary embolism with infarction (CMS/HCC) Other pulmonary embolism and infarction [facility] Diagnosis Chronic left-sided lumbar radiculopathy [facility] Diagnosis Chronic left-sided lumbar radiculopathy [facility] Diagnosis Pulmonary embolism with infarction (HCC)- Primary Other pulmonary embolism and infarction Chronic left-sided lumbar radiculopathy Moderate persistent asthma without complication (HCC) [facility] Diagnosis Moderate persistent asthma without complication (HCC)- Primary Pulmonary embolism with infarction (HCC) Other pulmonary embolism and infarction Chronic kidney disease, stage 3a (CMS-HCC) [facility] Diagnosis Primary insomnia Persistent disorder of initiating or maintaining sleep Chronic left-sided lumbar radiculopathy documented in this encounter [facility] Summary Purpose Family History No Family History Records FoundNo Family History Records FoundNo Family History Records FoundNo Family History Records FoundNo Family History Records Found Advance Directives No Advanced Directives Records FoundNo Advanced Directives Records FoundNo Advanced Directives Records FoundNo Advanced Directives Records FoundNo Advanced Directives Records Found Additional Source Comments INFORMATION SOURCE (unrecogn ized section and content) DATE CREATED AUTHOR 01/02/2022 [facility] DATE CREATED AUTHOR AUTHOR'S ORGANIZ ATION 06/21/2022 [facility] DATE CREATED AUTHOR AUTHOR'S ORGANIZ ATION 06/02/2023 [facility] DATE CREATED AUTHOR AUTHOR'S ORGANIZ ATION 01/09/2024 [facility] DATE CREATED AUTHOR AUTHOR'S ORGANIZ ATION 09/05/2024 [facility] EPIC Care Teams (unrecognized sec tion and content) Planning Division Superintendent Relationship Specialty Start Date End Date Sandro Avila MD [address] [place] [address] PCP - ACO Reach 07/17/22 Sandro Avila MD [address] [place] [address] PCP - General Internal Medicine 07/01/22 Planning Division Superintendent Relationship Specialty Start Date End Date Sandro Avila MD [address] [place] [address] PCP - ACO Reach 07/17/22 Sandro Avila MD [address] [place] [address] PCP - General Internal Medicine 07/01/22 Planning Division Superintendent Relationship Specialty Start Date End Date Sandro Avila MD [address] [place] [address] PCP - ACO Reach 07/17/22 Sandro Avila MD [address] [place] [address] PCP - General Internal Medicine 07/01/22 Planning Division Superintendent Relationship Specialty Start Date End Date Sandro Avila MD [address] [place] [address] PCP - ACO Reach 07/17/22 Sandro Avila MD [address] [place] [address] PCP - General Internal Medicine 07/01/22 Planning Division Superintendent Relationship Specialty Start Date End Date Sandro Avila MD [address] [place] [address] PCP - ACO Reach 07/17/22 Sandro Avila MD [address] [place] [address] PCP - General Internal Medicine 07/01/22 Planning Division Superintendent Relationship Specialty Start Date End Date Sandro Avila MD [address] [place] [address] PCP - ACO Reach 07/17/22 Sandro Avila MD [address] [place] [address] PCP - General Internal Medicine 07/01/22 Planning Division Superintendent Relationship Specialty Start Date End Date Sandro Avila MD [address] [place] [address] PCP - ACO Reach 07/17/22 Sandro Avila MD [address] [place] [address] PCP - General Internal Medicine 07/01/22 Planning Division Superintendent Relationship Specialty Start Date End Date Sandro Avila MD [address] [place] [address] PCP - ACO Reach 07/17/22 Sandro Avila MD [address] [place] [address] PCP - General Internal Medicine 07/01/22 Planning Division Superintendent Relationship Specialty Start Date End Date Sandro Avila MD [address] [place] [address] PCP - ACO Reach 07/17/22 Sandro Avila MD [address] [place] [address] PCP - General Internal Medicine 07/01/22 Planning Division Superintendent Relationship Specialty Start Date End Date Sandro Avila MD [address] [place] [address] PCP - ACO Reach 07/17/22 Sandro Avila MD [address] [place] [address] PCP - General Internal Medicine 07/01/22 Planning Division Superintendent Relationship Specialty Start Date End Date Sandro Avila MD [address] [place] [address] PCP - ACO Reach 07/17/22 Sandro Avila MD [address] [place] [address] PCP - General Internal Medicine 07/01/22 Reason for Visit (unrecogniz ed section and content) Reason Comments INR VISIT Coumadin 5mg Sun/Wed 7.5mg all other days Med Refill Hydrocodone,combiven t,flexeril-- [facility] Reason Comments INR VISIT Coumadin 5mg Sun/Wed 7.5mg all other days Med Refill [facility]codone--[facility] Reason Onset Date Comments Med Refill 01/26/2024 Reason Comments Med Refill Reason Comments INR VISIT Coumadin 5mg Sun/Wed 7.5mg all other days Med Refill [facility] Reason Comments INR VISIT Coumadin 5mg sun,Wed 7.5mg all other days Asthma FOR RECORDS PERTAINING TO PATIENTS WHO ARE [...] BE BASED ON THE PRIMARY CLINICAL RECORDS. [employer] provides no warranty or guarantee of the accuracy or completeness of information in this document.
[2024-10-26 08:18] LABS: Hemoglobin 12.5 g/dL (12.0-16.0)
--- NOTE | 2024-10-26 08:20 | MM_ITS ---
Patient Name: CAR ALBERTS MR#: [id number] : 1955 Exam Date: 10/26/2024 Ordering Doctor: DR AMARIS BIRMINGHAM M.D. RADIOLOGY REPORT PROCEDURE: MM TOMOSYNTHESIS SCREENING BI COMPARISON: MM TOMOSYNTHESIS SCREENING BI, 04/15/2023. MG MAMM SCREEN 3D JALIL CAD, 03/07/2022. MG MAMM SCREEN 3D JALIL CAD, 01/18/2021. MG MAMM JALIL SCRN W CAD DIG, 07/02/2012. INDICATIONS: Screening Calculator Name NCI Breast Cancer Risk Assessment Tool 5 Year Breast Cancer Risk 1.30% Lifetime Breast Cancer Risk 3.50% Personal Breast Cancer No Personal Ovarian Cancer No Treatments None Family Cancers Aunt-maternal with breast cancer at age 48; Aunt-maternal with breast cancer at age 69; Aunt-maternal with breast cancer at age 71; Aunt-maternal with breast cancer at age 68; Cousin-maternal with ovarian cancer at age 58. LOCATION: [facility] BREAST COMPOSITION: There are scattered areas of fibroglandular density. FINDINGS: RIGHT BREAST: No significant suspicious finding. Benign-appearing calcifications are present. Benign-appearing lymph nodes are noted along the chest wall. LEFT BREAST: No significant suspicious finding. Benign-appearing calcifications are present. Benign-appearing lymph nodes are noted along the chest wall. DIAGNOSTIC CATEGORY 2--BENIGN FINDING. NO CHANGE FROM COMPARISON. RECOMMENDATIONS: ROUTINE MAMMOGRAM AND CLINICAL EVALUATION IN 12 MONTHS. Dictated by: Corey Lam MD on 10/26/2024 at 15:41 Approved by: Corey Lam MD on 10/26/2024 at 15:43
== END 2024-10-26 07:57 | disposition home or self-care (01) ==
PROVIDERS: PCP Internal Medicine; Visit Provider Internal Medicine
DX: J45.40 Moderate persistent asthma, uncomplicated (principal); Z12.31 Encounter for screening mammogram for malignant neoplasm of breast; E28.39 Other primary ovarian failure; Z80.3 Family history of malignant neoplasm of breast; Z80.41 Family history of malignant neoplasm of ovary; M85.88 Other specified disorders of bone density and structure, other site
CPT/HCPCS: 36415; 77063; 77067; 77080; 85018; 94010; 94726; 94729